=== PATIENT | male | born 1965 | race Caucasian/White ===

== ENCOUNTER 2019-12-16 09:16 | Outpatient (CLI) | payer OTHER, SELFPAY ==
--- NOTE | 2019-12-16 09:21 | EST_ITS ---
Patient Info Name: Royer Shea Age: 54 years : 1965 Gender: Male Ht: 70 in Wt: 180 lbs BSA: 2.02 m2 Exam Date: 12/16/2019 10:04 AM Exam Location: [facility] Stress Patient Status: Outpatient Admit Date: 12/16/2019 Staff Ordering Physician: Marcelo Taylor MD Attending Provider: Marcelo Taylor MD Exercise Technologist: Imelda Arrington RDCS Exercise Physician: Alan Finley DO Exam Type: CA stress test treadmill Study Info Indications R07.89 - Other chest pain A treadmill exercise stress test was performed. Summary 1. 1. Negative Ramsey exercise stress test for ischemic ST changes by ECG criteria. 2. 2. Good functional capacity, achieving 12 METs of workload. 3. 3. Appropriate HR response to exercise. 4. 4. Appropriate HR recovery at 1 minute post exercise. 5. 5. No imaging with stress testing. 6. 6. Patient informed of the above results. Protocol: [place] Stress ECG Details Stage: REST Duration (min): 0 min : 41 sec Speed (mph): 0.0 Grade (%): 0 HR (bpm): 75 SBP (mmHg): 133 DBP (mmHg): 96 METS: --- Stage: REST Duration (min): 19 min : 29 sec Speed (mph): 0.0 Grade (%): 0 HR (bpm): 86 SBP (mmHg): 133 DBP (mmHg): 96 METS: --- Stage: STAGE 1 Duration (min): 1 min : 0 sec Speed (mph): 1.7 Grade (%): 10 HR (bpm): 97 SBP (mmHg): 133 DBP (mmHg): 96 METS: --- Stage: STAGE 1 Duration (min): 2 min : 0 sec Speed (mph): 1.7 Grade (%): 10 HR (bpm): 102 SBP (mmHg): 133 DBP (mmHg): 96 METS: --- Stage: STAGE 1 Duration (min): 3 min : 0 sec Speed (mph): 1.7 Grade (%): 10 HR (bpm): 104 SBP (mmHg): 156 DBP (mmHg): 99 METS: --- Stage: STAGE 2 Duration (min): 1 min : 0 sec Speed (mph): 2.5 Grade (%): 12 HR (bpm): 110 SBP (mmHg): 156 DBP (mmHg): 99 METS: --- Stage: STAGE 2 Duration (min): 2 min : 0 sec Speed (mph): 2.5 Grade (%): 12 HR (bpm): 116 SBP (mmHg): 161 DBP (mmHg): 98 METS: --- Stage: STAGE 2 Duration (min): 3 min : 0 sec Speed (mph): 2.5 Grade (%): 12 HR (bpm): 117 SBP (mmHg): 161 DBP (mmHg): 98 METS: --- Stage: STAGE 3 Duration (min): 1 min : 0 sec Speed (mph): 3.4 Grade (%): 14 HR (bpm): 125 SBP (mmHg): 155 DBP (mmHg): 88 METS: --- Stage: STAGE 3 Duration (min): 2 min : 0 sec Speed (mph): 3.4 Grade (%): 14 HR (bpm): 127 SBP (mmHg): 155 DBP (mmHg): 88 METS: --- Stage: STAGE 3 Duration (min): 3 min : 0 sec Speed (mph): 3.4 Grade (%): 14 HR (bpm): 132 SBP (mmHg): 177 DBP (mmHg): 105 METS: --- Stage: STAGE 4 Duration (min): 1 min : 0 sec Speed (mph): 4.2 Grade (%): 16 HR (bpm): 145 SBP (mmHg): 177 DBP (mmHg): 105 METS: --- Stage: STAGE 4 Duration (min): 1 min : 59 sec Speed (mph): 4.
== END 2019-12-16 09:17 | disposition home or self-care (01) ==
PROVIDERS: PCP Family Medicine; Visit Provider Family Medicine
DX: R07.9 Chest pain, unspecified (principal)
CPT/HCPCS: 93017

== ENCOUNTER 2022-11-04 00:31 | Day surgery (SDC) | payer OTHER, SELFPAY ==
[2022-10-21 13:23] VITALS: BMI 26.6
[2022-11-04 08:20] VITALS: BP 144/96; PULSE 78; RESP 18; TEMP 36.1; O2SAT 97
[2022-11-04] MEDS: LACTATED RINGERS 1,000 ML 150 ML IV CONT (08:22)
--- NOTE | 2022-11-04 08:55 | PM.HPGS ---
History of Present Illness History of Present Illness Consent: Risks, benefits, and alternatives have been discussed and questions answered. Patient agrees to proceed with procedure. Chief complaint: Hx of Polyp Narrative: Royer Shea is a 57 year old male Presents for screening colonoscopy. Patient has a prior history of adenomatous colon polyps. He has had these on several occasions previously removed by Dr. Cheng. Most recent colonoscopy was 3 years ago. Patient reports his current weight appetite and bowel movements are normal. Patient denies abdominal pain. He has had no bleeding. Reports in the past was treated for irritable bowel syndrome. Family history is noncontributory. There is no known family history of colon or rectal disease. Review of Systems Review of Systems: Review of systems noncontributory. [facility] Past Medical History Medical History BMI 26.0-26.9,adult Chest pain CORINA (obstructive sleep apnea) Tobacco abuse Family History Family History Mother Hypertension Family history of elevated blood lipids Family history of diabetes mellitus in first degree relative Family history of heart disease in male family member before age 55 Sibling Family history of malignant neoplasm Esophageal cancer Father Sibling Obesity Acute myocardial infarction Other Diabetes mellitus Social History Social History Smoking packs per day: 1 Smoking cigarettes per day: 20.0 Years smoked: 20 Smoking pack-years: 20.00 Smoking status: Current every day smoker Tobacco type: cigarettes Second hand tobacco smoke exposure: No Alcohol intake: current Substance use: never Substance use type: does not use Living arrangements: with family Occupation/Education: occupation 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[employer] Gender identity (if verbalized by the patient): Male Meds Home Medications and Allergies Home Medications Medication Instructions Recorded Confirmed Type gentamicin 0.3 % (3 mg/gram) eye 1 applic EACH EYE BID #3.5 grams 11/10/20 11/04/22 Rx ointment ketoconazole 2 % topical cream 1 applic topical TID #30 grams 04/02/21 11/04/22 Rx mupirocin 2 % topical ointment 1 applic topical TID #15 grams 04/02/21 11/04/22 Rx triamcinolone acetonide 0.5 % 1 applic topical TID #15 grams 04/02/21 11/04/22 Rx topical cream hydrochlorothiazide 12.5 mg tablet 12.5 mg PO DAILY #90 tabs 04/11/21 11/04/22 Rx amlodipine 5 mg tablet 5 mg PO DAILY #30 tabs 07/24/22 11/04/22 Rx zolpidem 10 mg tablet (Ambien) 10 mg PO HS PRN Sleep #90 tabs 08/22/22 11/04/22 Rx gabapentin 300 mg capsule 600 mg PO TID #180 caps 08/23/22 11/04/22 Rx diclofenac sodium 75 mg 75 mg PO BID PRN pain #60 tabs 09/21/22 11/04/22 Rx tablet,delayed release tapentadol 100 mg tablet,extended 100 mg PO BID #60 tabs 10/21/22 11/04/22 Rx release,12 hr (Nucynta ER) rosuvastatin 20 mg tablet 20 mg PO DAILY #90 tabs 10/22/22 11/04/22 Rx tizanidine 4 mg capsule See Rx Instructions .Route 10/22/22 11/04/22 Rx .COMPLEX #120 caps Allergies Allergy/AdvReac Type Severity Reaction Status Date / Time No Known Allergies Allergy Unknown Unknown Verified 11/04/22 08:17 Vital Signs Vital Signs - 24 hr 11/04/22 08:20 Temperature 97 F L Pulse Rate 78 Respiratory Rate 18 Blood Pressure 144/96 H Pulse Oximetry 97 Oxygen Delivery Room Air Exam Narrative: Physical exam reveals patient to be alert. Vital signs stable. HEENT exam is unremarkable. Patient is anicteric. Lungs are clear to auscultation and percussion. Heart is without murmur or extra sounds. Abdomen bowel sounds are present soft nontender with no organomegaly. Digital external rectal exam is normal. As
--- NOTE | 2022-11-04 09:06 | WPDANESEPPF ---
Anes - Initial Pre Proc Eval Procedure: Operation Date: 11/04/22 09:30 Proposed Procedures p Screening Colonoscopy - Chris Phelps MD Date/Time: 11/04/22 09:06 Surgeon: Chris Phelps MD Pre Op Diagnosis: Hx of Polyp Patient Data Age: 57 Gender: M Height: 1.78 m Weight: 83.4 kg Last Vital Signs Temp 97 F L 11/04/22 08:20 Pulse 78 11/04/22 08:20 Resp 18 11/04/22 08:20 BP 144/96 H 11/04/22 08:20 Pulse Ox 97 11/04/22 08:20 O2 Del Method Room Air 11/04/22 08:20 Allergies Allergy/AdvReac Type Severity Reaction Status Date / Time No Known Allergies Allergy Unknown Unknown Verified 11/04/22 08:17 Home Medications Medication Instructions Recorded Confirmed Type gentamicin 0.3 % (3 mg/gram) eye 1 applic EACH EYE BID #3.5 grams 11/10/20 11/04/22 Rx ointment ketoconazole 2 % topical cream 1 applic topical TID #30 grams 04/02/21 11/04/22 Rx mupirocin 2 % topical ointment 1 applic topical TID #15 grams 04/02/21 11/04/22 Rx triamcinolone acetonide 0.5 % 1 applic topical TID #15 grams 04/02/21 11/04/22 Rx topical cream hydrochlorothiazide 12.5 mg tablet 12.5 mg PO DAILY #90 tabs 04/11/21 11/04/22 Rx amlodipine 5 mg tablet 5 mg PO DAILY #30 tabs 07/24/22 11/04/22 Rx zolpidem 10 mg tablet (Ambien) 10 mg PO HS PRN Sleep #90 tabs 08/22/22 11/04/22 Rx gabapentin 300 mg capsule 600 mg PO TID #180 caps 08/23/22 11/04/22 Rx diclofenac sodium 75 mg 75 mg PO BID PRN pain #60 tabs 09/21/22 11/04/22 Rx tablet,delayed release tapentadol 100 mg tablet,extended 100 mg PO BID #60 tabs 10/21/22 11/04/22 Rx release,12 hr (Nucynta ER) rosuvastatin 20 mg tablet 20 mg PO DAILY #90 tabs 10/22/22 11/04/22 Rx tizanidine 4 mg capsule See Rx Instructions .Route 10/22/22 11/04/22 Rx .COMPLEX #120 caps Patient hx anesthesia problems: none Family hx anesthesia problems: none Results Review: All pre-operative results and documents have been reviewed as part of the pre-operative evaluation. [facility] Past Medical History Medical History BMI 26.0-26.9,adult Chest pain CORINA (obstructive sleep apnea) Tobacco abuse Family History Family History Mother Hypertension Family history of elevated blood lipids Family history of diabetes mellitus in first degree relative Family history of heart disease in male family member before age 55 Sibling Family history of malignant neoplasm Esophageal cancer Father Sibling Obesity Acute myocardial infarction Other Diabetes mellitus Social History Social History Smoking packs per day: 1 Smoking cigarettes per day: 20.0 Years smoked: 20 Smoking pack-years: 20.00 Smoking status: Current every day smoker Tobacco type: cigarettes Second hand tobacco smoke exposure: No Alcohol intake: current Substance use: never Substance use type: does not use Living arrangements: with family Occupation/Education: occupation 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 Informed Consent: The patient's anesthetic plan and its attendant risks and benefits were discussed with the patient/family/POA. Questions were solicited and answers provided to the satisfaction of the pat
[2022-11-04] MEDS: SIMETHICONE ORAL SUSPENSION 20 MG/0.3 ML 30 ML BOTTLE 0.6 ML IRRIGATION (09:49)
[2022-11-04 09:57] VITALS: BP 138/93; PULSE 78; RESP 20; O2SAT 98
[2022-11-04 10:07] VITALS: BP 127/96; PULSE 73; RESP 20; O2SAT 97
[2022-11-04 10:17] VITALS: BP 142/100; PULSE 74; RESP 20; O2SAT 96
== END 2022-11-04 10:26 | disposition home or self-care (01) ==
PROVIDERS: PCP Family Medicine; Visit Provider Internal Medicine Gastroenterology
PROC: 0DJD8ZZ Inspection of Lower Intestinal Tract, Via Natural or Artificial Opening Endoscopic (ICD-10-PCS; CPT 45378; principal; 2022-11-04 09:30)
DX: Z12.11 Encounter for screening for malignant neoplasm of colon (principal); K64.8 Other hemorrhoids; K57.30 Diverticulosis of large intestine without perforation or abscess without bleeding; Z86.010 Personal history of colon polyps; G47.33 Obstructive sleep apnea (adult) (pediatric); F17.210 Nicotine dependence, cigarettes, uncomplicated
CPT/HCPCS: 45378; J2704; J7120

== ENCOUNTER 2023-05-30 13:25 | Outpatient (CLI) | payer OTHER, SELFPAY ==
--- NOTE | 2023-05-30 14:07 | ECG_ITS ---
Measurements Intervals [place] Rate: 78 P: 60 UT: 166 QRS: 53 QRSD: 108 T: 55 QT: 385 QTc: 441 Interpretive Statements BASELINE ARTIFACT/REDUCED ECG QUALITY SINUS RHYTHM INDETERMINATE AXIS POOR R-WAVE PROGRESSION BORDERLINE ECG NO PREVIOUS ECG AVAILABLE FOR COMPARISON Electronically Signed On 05-30-2023 16:11:13 CDT by Jessee Arias M.D.
[2023-05-30 15:13] LABS: Anion Gap 8 mmol/L (8-16); Blood Urea Nitrogen 17 mg/dL (9-20); Calcium 9.3 mg/dL (8.4-10.2); Carbon Dioxide 27 mmol/L (22-30); Chloride 105 mmol/L (98-107); Estimated Glomerular Filt Rate > 60; Glucose 126 mg/dL (65-110); Potassium 3.7 mmol/L (3.4-5.0); Sodium 140 mmol/L (137-145)
== END 2023-05-30 13:26 | disposition home or self-care (01) ==
PROVIDERS: Anesthesiology; PCP Family Medicine; Visit Provider Urology
DX: I10 Essential (primary) hypertension (principal); Z01.818 Encounter for other preprocedural examination
CPT/HCPCS: 36415; 80048; 93005

== ENCOUNTER 2023-06-05 01:09 | Day surgery (SDC) | payer OTHER, SELFPAY ==
--- NOTE | 2023-05-26 15:35 | PC.NURSE ---
Report to the Outpatient Waiting Room, entrance under the green pavilion located off [facility], at time _0915 on date __06/05/23 . Planned Procedure Time: _1115 . Time changes happen often and if your time is changed the preop area will call you the afternoon before. - You and your visitor will be asked to self-screen and do not enter if you have any COVID symptoms. - A mask is optional within the hospital at this time. Patients may have clear liquids (water, carbonated beverages, clear teas, apple juice) until 3 hours prior to surgery with a maximum of 20 ounces. - No food from midnight until time of surgery - Infants may have breast milk until 4 hours before surgery, formula 6 hours prior to surgery. - Children will be allowed to drink immediately following surgery. If applicable, please bring a bottle or sippy cup to assist with drinking. Juice, water, soda, and popsicles are readily available. For infants on formula, please bring formula the day of surgery. Pacifiers are allowed. Take the following medications with a SIP of water the morning of surgery: __AMLODIPINE,GABAPENTIN,TIZANIDINE DO NOT STOP ANY OF YOUR OTHER PRESCRIPTION MEDICATIONS PRIOR TO SURGERY ?EXCEPT THE FOLLOWING Medications to discontinue per physician DICLOFENAC PER DR LEONE Date to take last dose Please no make-up, nail mauritian, hairspray, perfume, deodorant, or body powder the day of surgery. No jewelry (including any body piercings) or valuables the day of surgery, leave them at home. Please take a shower or bath the night before, or the morning of, surgery with an antibacterial soap. Wear comfortable, loose fitting clothing. Children are encouraged to wear pajamas. - Jewelry must be removed prior to entering the operating room. Rings and piercings that are not removed may be cut off. - The hospital will not accept responsibility for valuables. - Please leave all valuables, including medications, at home the day of surgery. If you are going home after surgery, a licensed concrete mixer truck driver must drive you home. - NO public transportation without another adult if you receive anesthesia. - We recommend that an adult stay with you for 24 hours following discharge. - We also recommend that you do not drive, make important decision, drink alcoholic beverages, or take any drugs that were not prescribed by your health care provider for at least 24 hours after your discharge time. For Pediatric surgeries, we recommend two adults accompany the child home. Follow any additional instructions given to you from your surgeon. If you or anyone in your household have experienced Covid symptoms in the past week, please notify your surgeon or the nurse liaison at the phone number below for possible testing. Telephone instructions given to ___PATIENT and asked if any additional questions and then verbalized understanding. Patient advised to call surgeon office or pre surgery nurse liaison [phone] if any additional questions.
[2023-05-26 15:42] VITALS: BMI 26.5
[2023-06-05] VITALS (9 sets, daily range): BP systolic 96–150; BP diastolic 70–101; PULSE 67–86; RESP 12–20; TEMP 36.3–36.4; O2SAT 95–100
--- NOTE | 2023-06-05 06:17 | WPDHPUPDATE1 ---
History and Physical Update Update Date/Time: 06/05/23 06:17 History and Physical has been reviewed, including an updated exam of the patient. There are NO changes in the patient's condition. Risks, benefits, and alternatives have been discussed and questions answered. Patient agrees to proceed with procedure.
--- NOTE | 2023-06-05 09:16 | WPDANESEPPF ---
Anes - Initial Pre Proc Eval Procedure: Operation Date: 06/05/23 10:15 Proposed Procedures p Excision of Multiple Scrotal Wall Cysts - Edison Agarwal MD Date/Time: 06/05/23 09:16 Surgeon: Edison Agarwal MD Pre Op Diagnosis: cyst of scrotum Patient Data Age: 58 Gender: M Height: 1.78 m Weight: 83.95 kg Allergies Allergy/AdvReac Type Severity Reaction Status Date / Time No Known Allergies Allergy Unknown Unknown Verified 06/05/23 09:04 Home Medications Medication Instructions Recorded Confirmed Type hydrochlorothiazide 12.5 mg tablet 12.5 mg PO DAILY #90 tabs 04/11/21 06/05/23 Rx zolpidem 10 mg tablet (Ambien) 10 mg PO HS PRN Sleep #90 tabs 08/22/22 06/05/23 Rx amlodipine 5 mg tablet 5 mg PO DAILY #30 tabs 02/14/23 06/05/23 Rx triamcinolone acetonide 0.5 % 1 applic topical TID #15 grams 03/14/23 05/26/23 Rx topical cream diclofenac sodium 75 mg 75 mg PO BID PRN pain #60 tabs 04/12/23 05/26/23 Rx tablet,delayed release gabapentin 300 mg capsule 600 mg PO TID #180 caps 04/12/23 06/05/23 Rx rosuvastatin 20 mg tablet 20 mg PO DAILY #90 tabs 04/12/23 06/05/23 Rx tizanidine 4 mg capsule See Rx Instructions .Route 05/12/23 06/05/23 Rx .COMPLEX #120 caps tapentadol 100 mg tablet,extended 100 mg PO BID #60 tabs 05/20/23 06/05/23 Rx release,12 hr (Nucynta ER) Patient hx anesthesia problems: none Family hx anesthesia problems: none Results Review: All pre-operative results and documents have been reviewed as part of the pre-operative evaluation. [facility] Past Medical History Medical History BMI 26.0-26.9,adult Chest pain CORINA (obstructive sleep apnea) Tobacco abuse Family History Family History Mother Hypertension Family history of elevated blood lipids Family history of diabetes mellitus in first degree relative Family history of heart disease in male family member before age 55 Sibling Family history of malignant neoplasm Esophageal cancer Father Sibling Obesity Acute myocardial infarction Other Diabetes mellitus Social History Social History Smoking packs per day: 1 Smoking cigarettes per day: 20.0 Years smoked: 20 Smoking pack-years: 20.00 Smoking status: Current every day smoker Tobacco type: cigarettes Second hand tobacco smoke exposure: No Alcohol intake: current Drinks per week: 4 Substance use: never Substance use type: does not use Living arrangements: with family Occupation/Education: occupation 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 Informed Consent: The patient's anesthetic plan and its attendant risks and benefits were discussed with the patient/family/POA. Questions were solicited and answers provided to the satisfaction of the patient/family/POA.
[2023-06-05] MEDS: LACTATED RINGERS 1,000 ML 30 ML IV CONT (09:20)
[2023-06-05] MEDS: ceFAZolin 2 GM/D5W 50 ML 2 GM/50 ML BAG IVPB (09:55)
[2023-06-05] MEDS: LIDOCAINE HCL 1% LOCAL INJ 20 ML VIAL INFILTRATE (10:09)
[2023-06-05] MEDS: NEOMYCIN/POLYMYXIN/BACITRACIN OINTMENT 15 GM TUBE 1 APPLIC TOPICAL (10:27)
--- NOTE | 2023-06-05 10:32 | W.PM.PROC2 ---
Procedure Note - Detailed Date of Procedure 06/05/23 Pre-op Diagnosis Scrotal sebaceous cysts Post-op Diagnosis Same Procedure Performed Excision of multiple small sebaceous cysts Surgeon Edison Agarwal MD Anesthesia General Description of Procedure patient brought the operative suite was prepped draped in routine sterile fashion while in the supine position after the uneventful induction of a general anesthetic. I had asked the patient to previously marked the sites of small sebaceous cyst on his scrotum that he was able to identify. We had reviewed those sites prior to going to the operating room. There were 2 contiguous, approximately 1/2 cm cyst in the anterior scrotal wall midline. These are resected EN bloc by incising the skin and used electrocautery to dissect the subcutaneous tissue. The site is closed in 2 layers with 4-0 chromic in the dartos muscle followed by running 4-0 chromic in the skin. There are 2 small cyst in her near each other in the left lateral posterior scrotal area. These are excised and the skin is closed with interrupted mattress suture of 4-0 chromic. There was a 4 site that is excised at the right penoscrotal junction it is closed with a similar mattress suture. Blood loss was less than 5 cc. Patient tolerated the procedure well was taken recovery good condition. Drains No Packing No Pathology Yes Complications No immediate complications Condition Stable
[2023-06-05] MEDS: oxyCODONE HCL (*CRX) 5 MG TAB IR PO (11:48)
== END 2023-06-05 12:25 | disposition home or self-care (01) ==
PROVIDERS: PCP Family Medicine; Visit Provider Urology
PROC: (CPT 54060; principal; 2023-06-05 10:15)
DX: L72.0 Epidermal cyst (principal); K21.9 Gastro-esophageal reflux disease without esophagitis; E78.00 Pure hypercholesterolemia, unspecified; G47.33 Obstructive sleep apnea (adult) (pediatric); F17.210 Nicotine dependence, cigarettes, uncomplicated
CPT/HCPCS: 11422; 88305; A9270; J0690; J1100; J2250; J2405; J2704; J3010; J7120

== ENCOUNTER → 2023-06-27 12:57 | Outpatient (CLI) | payer OTHER, SELFPAY ==
--- NOTE | ~2023-06-27 | US_ITS ---
US scrotum doppler INDICATION: Scrotal hematoma. Surgery. TECHNIQUE: Testicular sonogram utilizing grayscale and color Doppler FINDINGS: There is bilateral testicular microlithiasis. No discrete solid testicular mass. There are small left testicular cyst measuring up to 4 mm. No focal lesions are seen. Prominent left rete teste s. The right testes measures 5 x 2.9 x 3.6 cm centimeters, and the left testis measures 5.7 x 2.6 x 2 .5 cm. cm. There is normal vascular flow to both testes. The right and left epididymides appear normal. There is a small right hydrocele. No varicocele. IMPRESSION: 1. Small right hydrocele. 2: Testicular microlithiasis. Reviewed, dictated and finalized at location B.
== END ==
PROVIDERS: PCP Nurse Practitioner Adult Health; Visit Provider Nurse Practitioner Adult Health
DX: S30.22XA Contusion of scrotum and testes, initial encounter (principal); N43.3 Hydrocele, unspecified; N50.9 Disorder of male genital organs, unspecified
CPT/HCPCS: 76870; 93976

== ENCOUNTER 2024-11-27 12:53 | Emergency (ER) | payer OTHER, SELFPAY ==
--- OUTSIDE RECORDS SUMMARY | 2024-11-27 12:58 | XMS_ITS | Patient Health Summary ---
Author Organization [facility] Address [address] [place] [address] Care Team Providers Care It Trainer Name Role Phone Marcelo Taylor MD Primary Care Provider [phone] Note from [facility],non-owned Affiliates and Associated Physician Practices is amultiple site organization consisting of ambulatory clinics and hospital sitesin [place], [place], [place] and [place]. This disclosure is being madepursuant to the Care Everywhere program and may not contain all informatio navailable regarding this patient. Last updated 18.[facility] Allergies No known active allergies Medications * Be aware that medications may not be up to date on this document. Alwaysverify current medications with the patient. * gabapentin (Neurontin) 300 MG capsule(Started 05/29/2022) Take 600 mg by mouth 2 times daily * diclofenac sodium EC (Voltaren) 75 MG tablet(Started 05/25/2022) Take 75 mg by mouth 2 times daily as needed For pain. 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 Dermatitis 03/14/2014 Disorder of lip 03/14/2014 Follicular cyst of skin and subcutaneous tissue 03/14/2014 Social History Tobacco Use Types Packs/Day Years Used Date Smoking Tobacco: Former Cigarettes Q uit: 10/13/2010 Smokeless Tobacco: Never Alcohol Use Standard Drinks/Week Comments Yes 2.5 (1 standard drink = 0.6 oz p ure alcohol) Sex and Gender Information Value Date Recorded Sex Assigned at Not on file Gender Identity Not on file Sexual Orientation Not on file Last Filed Vital Signs Vital Sign Reading Time Taken Comments Blood Pressure 162/94 06/20/2022 2:30 PM CDT Pulse 81 06/20/2022 2:30 PM CDT Temperature 36.1 C (97 F) 05/19/2015 11:00 AM CDT Respiratory Rate 15 05/19/2015 10:50 AM CDT Oxygen Saturation 95% 05/19/2015 12:15 PM CDT Inhaled Oxygen Concentration - - Weight 83.5 kg (184 lb) 06/20/2022 2:30 PM CDT Height 177.8 cm (5' 10 ) 06/20/2022 2:30 PM CDT Body Mass Index 26.4 06/20/2022 2:30 PM CDT Procedures * DERMATOPATHOLOGY(Performed 12/05/2023) Performed for Neoplasm of uncertain behavior of skin * MO EAR MICROSCOPY EXAMINATION(Performed 06/20/2022) Performed for Hearing loss, sensorineural, asymmetrical * AUDIOLOGY/TYMPANOMETRY ORDER(Performed 06/20/2022) * DERMATOPATHOLOGY(Performed 03/13/2020) * FL DAREN SURGERY(Performed 05/19/2015) * TYPE + SCREEN PANEL(Performed 05/19/2015) * XR CHEST 2VW(Performed 05/09/2015) * COMPREHENSIVE METABOLIC PANEL(Performed 05/09/2015) * CBC W AUTO DIFFERENTIAL(Performed 05/09/2015) * CBC W AUTO DIFFERENTIAL(Performed 05/09/2015) * EKG 12-LEAD(Performed 05/09/2015) * DERMATOPATHOLOGY(Performed 07/07/2014) * CULTURE AEROBIC(Performed 06/04/2014) Results * DERMATOPATHOLOGY (12/05/2023 3:33 AM [facility]) Only the most recent of3 resultswithin the time period is included. Case Report Dermatopathology Report Case: [id number] Authorizing Provider: Aj Watters MD Collected: 12/05/2023 03:33 AM Ordering Location: [facility] DermPath Lab Received: 12/08/2023 01:27 PM Pathologist: Kevin Locke MD Specimens: A) - Skin, right forehead B) - Skin, left lateral eyebrow 11:47 AM [facility] DERMATOPATHOLOGY LABORATORY Final Diagnosis Specimen A. SKIN, right forehead: SEBACEOUS HYPERPLASIA (L73.8) CHRONIC PERIFOLLICULITIS (L73.8) Specimen B. SKIN, left lateral eyebrow: BENIGN VERRUCOUS KERATOSIS (L82.1) 11:47 AM [facility] DERMATOPATHOLOGY LABORATORY Clinical History A: Sebaceous hyperplasia vs basal cell carcinoma B: Irritated seborrheic keratosis vs actinic keratosis 11:47 AM [facility] DERMATOPATHOLOGY LABORATORY Gross Description Specimen A: Received is one formalin filled container labeled with the patient's name and designated right forehead. The specimen consists of a shave biopsy measuring 10x8x1 mm. Jar 0. Specimen B: Received is one formalin filled container labeled with the patient's name and designated left lateral eyebrow. The specimen consists of a shave biopsy measuring 5x4x2 mm. Jar 0. 11:47 AM [facility] DERMATOPATHOLOGY LABORATORY Microscopic Description Specimen A. SKIN, right forehead: There are prominent sebaceous gland lobules surrounding a dilated hair follicle. Sections show a perifollicular lymphohistiocytic infiltrate. Specimen B. SKIN, left lateral eyebrow: Sections show hyperkeratosis, papillomatosis, hypergranulosis, and acanthosis. These histological findings can be seen in a verruca vulgaris or a seborrheic keratosis. 11:47 AM [facility] DERMATOPATHOLOGY LABORATORY Disclaimer An external and internal positive and negative controls are appropriate for the histochemical, immunohistochemical and immunofluorescence stain(s) in this case (if any), except where stated explicitly. The performance characteristics of the stain(s) cited in this report were developed and its performance characteristic determined by the Dermatopathology Laboratory at [facility], directed by Dr. Yuri Locke. These tests need not be, and therefore are not, approved by the [place] Food and Drug Administration. The tests are used for clinical purposes. Billing Codes Specimen Charges Stain Charges 01027 16389 1 1 4 11:47 AM [facility] DERMATOP[facility]Y LABORATORY Embedded Images 4 11:47 AM [facility]ERMAT[facility] Pathology/Cytology TISSUE SPECIMEN FROM SKIN / Unknown 12/05/2023 3:33 AM [facility] 12/08/2023 1:27 PM [facility] Miscellaneous samples (specimen) TISSUE SPECIMEN FROM SKIN / Unknown 12/05/2023 3:33 AM [facility] 12/08/2023 1:27 PM [facility] Aj Watters MD LAB - PATHOLOGY/CYTO LOGY ORDERABLES DERMATOPATHOLOGY LABORATORY [facility] - Department of Dermatology [address], [address] [phone] * MO EAR MICROSCOPY EXAMINATION (06/20/2022 3:27 PM CDT) Narrative Rob Salvador MD - 06/20/2022 3:27 PM CDT Rob Salvador MD 06/20/2022 3:28 PM Procedure: Microscopic exam of the ear(s) Findings: See main note. Procedure in detail: The binocular operating microscope and and ear speculum were used to exam the ear(s). The patient tolerated the procedure well and there was no bleeding. Rob Salvador MD Rob Salvador MD PROCEDURE/MINOR DESMOND GICAL ORDERABLES * AUDIOLOGY/TYMPANOMETRY ORDER (06/20/2022 1:57 PM CDT) Narrative Praveen Colon, PhD - 06/20/2022 2:28 PM CDT Royer Shea is a 57 year old male was seen for an assessment of their hearing. The patient reports difficulty hearing in the left. There is a report of dizziness. There is a report of tinnitus in the left ear. There is a report of otalgia. There is a report of noise exposure in the and recreational firearms. There is not a history of hearing loss in the family. There is not a history of previous ear surgery. There is a history of migraine headaches since childhood. Results: Puretone air/bone conduction testing revealed a normal hearing in the right ear and a normal sloping to mild sensorineural hearing loss in the left ear. Speech Core Shaper Top Thresholds is in good agreement with pure tone average(see speech audiometry for details). Findings were reviewed and discussed with Royer Shea following the hearing evaluation. Plan: 1. The risks and benefits of my recommendations, as well as other treatment options were discussed today. 2. I recommend that the patient follow up with their facility, ENT or PCP PRN. 3. Annual hearing test. Praveen Colon, Ph.D., EMMA., [facility] Trash Hauler Director, Division of Audiology Department of Otolaryngology- Head & Neck Surgery [facility] [employer] [facility] Praveen Colon PhD AUDIOLOGY SERVICES O RDERABLES * FL DAERN SURGERY (05/19/2015 9:46 AM CDT) Anatomical Region Laterality Modality Other Narrative 05/19/2015 9:46 AM CDT Fluoroscopy was used for this exam. Please see the Operative report. Procedure Note Provider, MD Juliette - 01/10/2018 Fluoroscopy was used for this exam. Please see the Operative report. Historical Provider FLUOROSCOPY ORDER ZOHAIB * TYPE + SCREEN PANEL (05/19/2015 7:10 AM CDT) Typem A POS [facility] BLOOD BANK LAB Antibody Screen NEG [facility] Blood specimen (specimen) 05/19/2015 7:10 AM CDT 05/19/2015 7:16 AM CDT Historical Provider LAB - BLOOD BANK ORDERABLES [facility] [address] [place], [place] [address] * XR CHEST 2VW (05/09/2015 4:18 PM CDT) Anatomical Region Laterality Modality Chest Other Impressions 05/11/2015 6:11 PM CDT Impression: No acute pulmonary process. Dictated by Sammy Fox MD (Installer Helper) This report was approved by Smamy Fox on 05/11/2015 5:[address] Damaso Marshall M.D. have personally reviewed and interpreted this examination/study. This report was electronically signed by Damaso GRISSOM M.D. on 05/11/2015 6:11 PM . Narrative 05/11/2015 6:11 PM CDT Exam: XR CHEST PA AND LATERAL Date: 05/09/2015 4:19 PM History: pre op testing Findings: Partially imaged cervical spinal fusion hardware is seen. There is no consolidation, pleural effusion, or pneumothorax. The cardiomediastinal silhouette is normal. The visible bony thorax is intact. Procedure Note Roxana Grissom MD - 01/10/2018 Exam: XR CHEST PA AND LATERAL Date: 05/09/2015 4:19 PM History: pre op testing Findings: Partially imaged cervical spinal fusion hardware is seen. There is no consolidation, pleural effusion, or pneumothorax. Thecardiomediastinal silhouette is normal. The visible bony thorax isintact. IMPRESSION Impression: No acute pulmonary process. Dictated by Sammy Fox MD (Installer Helper) This report was approved by Sammy Fox on 05/11/2015 5:[address] Damaso Marshall M.D. have personally reviewed and interpreted thisexamination/study. This report was electronically signed by Damaso GRISSOM M.D. on05/11/2015 6:11 PM . Historical Provider MD SIERRA Medel ORDERABLES * (ABNORMAL) CBC W AUTO DIFFERENTIAL (05/09/2015 4:09 PM CDT) Only the most recent of2 resultswithin the time period is included. WBC 8.4 3.5 - 10.5 10 3/uL [facility] RBC 5.13 4.30 - 5.70 10 6/uL [facility] Hemoglobin 15.4 13.5 - 17.5 g/dL [facility] Hematocrit 43.5 39.0 - 50.0 % [facility] MCV 84.8 81.0 - 97.0 fL [facility] MCH 30.0 28.0 - 34.0 pg [facility] MCHC 35.4 32.0 - 36.0 g/dL [facility] Platelet Count 277 150 - 400 10 3/uL [facility] RDW-SD 39.9 36.0 - 50.0 fL [facility] RDW-CV 12.9 11.2 - 14.8 % [facility] MPV 10.5 9.3 - 12.8 fL [facility] nRBC Absolute 0.00 0 10 3/uL [facility] nRBC Auto 0.0 0 /100 WBC [facility] Neutrophils % 55.8 35.0 - 70.0 % [facility] Lymphocytes % 36.0 19.7 - 55.1 % [facility] Monocytes % 5.1 3.0 - 15.0 % [facility] Eosinophils % 2.4 0.0 - 6.0 % [facility] Basophil % 0.7 0.0 - 1.5 % [facility] Neutrophils Absolute 4.7 1.6 - 7.0 10 3/uL [facility] Lymphocyte Absolute 3.0(H) 0.8 - 2.9 10 3/uL [facility] Monocytes Absolute 0.43 0.14 - 0.66 10 3/uL [facility] Eosinophils Absolute 0.20 0.00 - 0.22 10 3/uL [facility] Basophils Absolute 0.06 0.00 - 0.06 10 3/uL [facility] Immature Granulocytes % 0.4 0.0 - 1.0 % [facility] Blood specimen (specimen) BLOOD SPECIMEN / Unknown 05/09/2015 4:09 PM CDT 05/09/2015 5:04 PM CDT Historical Provider LAB - HEMATOLOGY ORDERABLES [facility] [address] [phone] * (ABNORMAL) COMPREHENSIVE METABOLIC PANEL (05/09/2015 4:09 PM CDT) BUN 11 7 - 26 mg/dL [facility] Creatinine 0.9 0.6 - 1.2 mg/dL [facility] Sodium 141 136 - 145 mmol/L [facility] Potassium 4.2 3.5 - 4.5 mmol/L [facility] Chloride 108(H) 98 - 107 mmol/L [facility] CO2 23 22 - 29 mmol/L [facility] Glucose 82 70 - 115 mg/dL [facility] Calcium 9.4 8.4 - 10.2 mg/dL [facility] Protein Total 6.9 6.0 - 8.3 g/dL [facility] Albumin 4.0 3.4 - 5.0 g/dL [facility] Bilirubin Total 0.5 0.2 - 1.2 mg/dL [facility] Alkaline Phosphatase 64 40 - 150 Units/L [facility] ALT 22 0 - 55 Units/L [facility] AST 24 5 - 34 Units/L [facility] Anion Gap 14 8 - 18 [facility] BUN/Creatinine Ratio 12 7 - 23 [facility] Osmolality Calculated 276 270 - 300 mOsm/kg [facility] Albumin/Globulin Ratio 1.4 1.1 - 2.3 [facility] eGFR >60 >60 mL/min/1.7 3 m2 [facility] Blood specimen (specimen) BLOOD SPECIMEN / Unknown 05/09/2015 4:09 PM CDT 05/09/2015 5:04 PM CDT Historical Provider LAB - CHEMISTRY O RDERABLES [address] [phone] * EKG 12-LEAD (05/09/2015 12:00 AM CDT) 05/09/2015 Sanket Mccrary CD ECG ORDERABLES [facility] RADIOLOGY * (ABNORMAL) CULTURE AEROBIC (06/04/2014 11:00 AM CDT) Culture SEE NOTE(A) [facility] ([facility]) Comment: CULTURE, AEROBIC BACTERIA MICRO NUMBER: [id number] TEST STATUS: FINAL SPECIMEN SOURCE: NOT GIVEN SPECIMEN QUALITY: ADEQUATE RESULT: Moderate growth of Staphylococcus aureus COMMENT: Additional organisms of questionable significance were isolated that normally do not warrant identification and susceptibilities. Please contact the laboratory within three days if identification and susceptibilities are clinically indicated. S.aureus INT RAJIV AMOX/CLAVULANATE S <=4/2 AMP/SULBACTAM S <=8/4 CEFAZOLIN S <=4 CIPROFLOXACIN R >2 CLINDAMYCIN R >4 ERYTHROMYCIN R >4 GENTAMICIN S <=1 LEVOFLOXACIN R >4 OXACILLIN S 0.5 1 TETRACYCLINE S <=1 TRIMETHOPRIM/SULFA S <=0.5/9.5 VANCOMYCIN S 2 S=Susceptible I=Intermediate R=Resistant * = Not Tested NR = Not Reported NN = See Therapy Comments THERAPY COMMENTS Note 1: Oxacillin-susceptible staphylococci are susceptible to other penicillinase-stable penicillins (e.g. Methicillin, Nafcillin), beta- lactam/beta-lactamase inhibitor combinations, and cephems with staphylococcal indications, including Cefazolin. NO COLLECTION DATE RECEIVED. WE HAVE USED THE DATE THE SPECIMEN WAS RECEIVED BY THIS LABORATORY THE COLLECTION DATE. IF THIS IS INCORRECT, PLEASE CONTACT CLIENT SERVICES. PHONE NUMBER: [phone] Test Performed at: [employer] [phone] GATITO STEPHENSON MD Skin (tissue) specimen (specimen) 06/04/2014 11:00 AM CDT 05/31/2014 11:26 PM CDT Narrative [facility] ([facility]) - 06/04/2014 11:00 AM CDT Specimen Type->Skin Maribell Mcgowan MD LAB - MICROBIOLOGY ORDERABLES [facility]) Care Teams It Trainer Relationship Specialty Start Date End Date Marcelo Taylor MD [address] [place] [address] PCP - General 01/21/11
--- OUTSIDE RECORDS SUMMARY | 2024-11-27 12:58 | XMS_ITS | Clinical Summary ---
Author Organization [facility] [employer] Address [address] [place] [address] Care Team Providers Care Nurse'S Companion Name Role Phone Marcelo Taylor MD Primary Care Provider Source Comments [facility] [employer],non-owned Affiliates and Associated Physician Practices is amultiple site organization consisting of ambulatory clinics and hospital sitesin [place], [place], [place] and [place]. This disclosure is being madepursuant to the Care Everywhere program and may not contain all information available regarding this patient. Last updated 18.[facility] [employer] Allergies No known active allergies Medications * Be aware that medications may not be up to date on this document. Alwaysverify current medications with the patient. Medication Sig Dispensed Refills Start Date End Date Status gabapentin (Neurontin) 300 MG capsule Take 600 mg by mouth 2 times daily 05/29/2022 Active diclofenac sodium EC (Voltaren) 75 MG tablet Take 75 mg by mouth 2 times daily as needed For pain. 05/25/2022 Active Nucynta ER 100 MG tablet Take 100 mg by mouth 2 times daily 05/23/2022 Active tiZANidine HCl 4 MG Take 4 mg by mouth 2 times daily 05/25/2022 Active zolpidem (Ambien) 10 MG tablet Take 10 mg by mouth nightly as needed for Insomnia Active Active Problems Problem Noted Date Diagnosed Date Other intervertebral disc displacement, lumbar r egion 01/23/2015 Dermatitis 03/14/2014 Disorder of lip 03/14/2014 Follicular cyst of skin and subcutaneous tissue 03/14/2014 Family History Medical History Relation Name Comments Cancer Brother CVA Maternal Grandfather Heart Disease Mother Hypertension Mother Allergy (Severe) Neg Hx Cancer - Breast Neg Hx Cancer - Skin, Melanoma Neg Hx Cancer - Skin, Non Melanoma Neg Hx Eczema Neg Hx Hemophilia Neg Hx Psoriasis Neg Hx Rashes/Skin Problems Neg Hx Relation Name Status Comments Brother Maternal Grandfather Mother Social History Tobacco Use Types Packs/Day Years [...] Mass Index 26.4 06/20/2022 2:30 PM CDT Plan of Treatment Health Maintenance Due Date Last Done Comments COLOGUARD (AGES 45-75) - COL ON CA SCREENING 1967 COLON MONITORING 1967 COLONOSCOPY - COLON CA SCREENING 1967 CT COLONOGRAPHY - COLON CA SCREENING 1967 Colorectal Cancer Screening 1967 FIT - COLON CA SCREENING 1967 FLEX SIG - COLON CA SCREENING 1967 LIPID TESTING 1967 HIV SCREENING 1982 HEPATITIS C SCREENING 05/28/1985 DTAP/TDAP/TD VACCINES (1 - Tdap) 1986 HEPATITIS B VACCINE (1 of 3 - 19+ 3-dose series) 1986 PNEUMOCOCCAL VACCINE 50+ (1 of 1 - PCV) 2017 ZOSTER VACCINE (1 of 2) 2017 SCREENING FOR DIABETES 06/20/2022 05/09/2015 COVID-19 VACCINE ( - 2023-2 5 season) 2024 INFLUENZA VACCINE (#1) 2024 07/13/2013 DEPRESSION SCREENING 10/13/2024 HIB VACCINE Aged Out No longer eligi ble based on patient's age to complete this topic HPV VACCINE Aged Out No longer eligi ble based on patient's age to complete this topic MENINGOCOCCAL (Group B) VACCINE Aged Out No longer eligible based on patient's age to complete this topic MENINGOCOCCAL VACCINE Aged Out No bubba adam eligible based on patient's age to complete this topic PNEUMOCOCCAL VACCINE Aged Out No long er eligible based on patient's age to complete this topic Procedures Procedure Name Priority Date/Time Associated Diagnosis Comments COMPREHENSIVE METABOLIC PANEL Routine 05/09/2015 4:09 PM CDT from Last 3 Months or Most Recently Relevant to Health Maintenance Results * (ABNORMAL) COMPREHENSIVE METABOLIC PANEL (05/09/2015 4:09 PM CDT) BUN 11 7 - 26 mg/dL [facility] Creatinine 0.9 0.6 - 1.2 mg/dL [facility] Sodium 141 136 - 145 mmol/L [facility] Potassium 4.2 3.5 - 4.5 mmol/L [facility] Chloride 108(H) 98 - 107 mmol/L [facility] CO2 23 22 - 29 mmol/L [facility] Glucose 82 70 - 115 mg/dL [facility] Calcium 9.4 8.4 - 10.2 mg/dL [facility] Protein Total 6.9 6.0 - 8.3 g/dL [facility] Albumin 4.0 3.4 - 5.0 g/dL [facility] Bilirubin Total 0.5 0.2 - 1.2 mg/dL [facility] Alkaline Phosphatase 64 40 - 150 Units/L [facility] ALT 22 0 - 55 Units/L [facility] AST 24 5 - 34 Units/L [facility] Anion Gap 14 8 - 18 [facility] BUN/Creatinine Ratio 12 7 - 23 [facility] Osmolality Calculated 276 270 - 300 mOsm/kg [facility] Albumin/Globulin Ratio 1.4 1.1 - 2.3 [facility] eGFR >60 >60 mL/min/1.7 3 m2 [facility] Blood specimen (specimen) BLOOD SPECIMEN / Unknown 05/09/2015 4:09 PM CDT 05/09/2015 5:04 PM CDT Historical Provider LAB - CHEMISTRY O RDERABLES [facility] [address] [phone] from Last 3 Months or Most Recently Relevant to Health Maintenance Care Teams Nurse'S Companion Relationship Specialty Start Date End Date Marcelo Taylor MD [address] [place] [address] PCP - General 01/21/11
--- OUTSIDE RECORDS SUMMARY | 2024-11-27 12:58 | XMS_ITS | Referral Summary ---
Author Organization [facility] [employer] Address [address] [place] [address] Care Team Providers Care Occupational Health Nurse Name Role Phone Marcelo Taylor MD Primary Care Provider [phone] Source Comments [facility] [employer],non-owned Affiliates and Associated Physician Practices is amultiple site organization consisting of ambulatory clinics and hospital sitesin [place], [place], [place] and [place]. This disclosure is being madepursuant to the Care Everywhere program and may not contain all information available regarding this patient. Last updated 18.[facility] [employer] Allergies No known active allergies Medications * [...] 06/20/2022 2:30 PM CDT Plan of Treatment Not on file Procedures Procedure Name Priority Date/Time Associated Diagnosis Comments COMPREHENSIVE METABOLIC PANEL Routine 05/09/2015 4:09 PM CDT from Last 3 Months or Most Recently Relevant to Health Maintenance Results * (ABNORMAL) COMPREHENSIVE METABOLIC PANEL (05/09/2015 4:09 PM CDT) BUN 11 7 - 26 mg/dL [facility] Creatinine 0.9 0.6 - 1.2 mg/dL [facility] Sodium 141 136 - 145 mmol/L [facility] Potassium 4.2 3.5 - 4.5 mmol/L [facility] Chloride 108(H) 98 - 107 mmol/L [facility] CO2 23 22 - 29 mmol/L [facility] Glucose 82 70 - 115 mg/dL [facility] Calcium 9.4 8.4 - 10.2 mg/dL [facility] Protein Total 6.9 6.0 - 8.3 g/dL [facility] Albumin 4.0 3.4 - 5.0 g/dL [facility] Bilirubin Total 0.5 0.2 - 1.2 mg/dL [facility] Alkaline Phosphatase 64 40 - 150 Units/L [facility] ALT 22 0 - 55 Units/L [facility] AST 24 5 - 34 Units/L [facility] Anion Gap 14 8 - 18 [facility] BUN/Creatinine Ratio 12 7 - 23 [facility] Osmolality Calculated 276 270 - 300 mOsm/kg [facility] Albumin/Globulin Ratio 1.4 1.1 - 2.3 [facility] eGFR >60 >60 mL/min/1.7 3 m2 [facility] Blood specimen (specimen) BLOOD SPECIMEN / Unknown 05/09/2015 4:09 PM CDT 05/09/2015 5:04 PM CDT Historical Provider LAB - CHEMISTRY O RDERABLES [facility] [address] [place] [address] from Last 3 Months or Most Recently Relevant to Health Maintenance Care Teams Occupational Health Nurse Relationship Specialty Start Date End Date Marcelo Taylor MD [address] [place] [address] PCP - General 01/21/11
--- OUTSIDE RECORDS SUMMARY | 2024-11-27 12:59 | XMS_ITS | Continuity of Care Document ---
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 It does not include entries that were removed or entered in error. Problem Status Onset Date Problem Type Date of Resolution Comments Source Low Back Pain * (ICD-9-CM 724.2) Active Condition . 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 DoD nonorganic sleep apnea Inactive Condition DoD neuritis cervical Active Condition DoD radiculopathy Inactive Condition DoD periods of not breathing while asleep (sleep apnea) Inactive Condition DoD Snoring Inactive Condition [facility] visit for: services physical long-term Inactive Condition [facility] visit for: preoperative cardiovascular exam Inactive Condition DoD snoring Active Condition [facility] visit for: preoperative exam Active Condition 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 DoD extruded intervertebral disc cervical Inactive Condition DoD essential hypertriglyceridemia Active Condition DoD midback pain Inactive Condition DoD cervicalgia Active Condition 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 Elavil 150mg prescribed but too dry for him. Would like to switch to something else for sleep. Not excessively concerned with sweating any more. Try Trazodone. [facility] dermatology non-infectious nails Inactive Condition dystrop hy of 2 nails likely caused by application of high dose steroids to cuticles 3-4 months ago. These nails will grow out. Meanwhile the patient is cautioned to keep the nails as dry as possible and keep from soaking them to avoid infection of the nail bed. Follow up in 6 months for nail growth. DoD glaucoma open-angle primary Active Condition DoD dyshidrosis Active Condition DoD hyperhidrosis Active Condition WITH P T REPORTING INCREASE IN OVERALL SWEATING, NIGHT SWEATS, NON PURPOSEFUL WEIGHT LOSS, FLUSHING WITH SENSATION OF BEING HOT WOULD CONSIDER SYSTEMIC CAUSE OF SWEATING. WILL DO BASIC LAB EVAL TO INCLUDE THYROID AND REFER BACK TO PCM OR IM FOR FURTHER POS DoD visit for: services physical Inactive Condition DoD hemorrhoids external thrombosed Inactive Condition History of external hemorrhoids x 15 years. Negative c-scope >10 years ago. No family history of colon cancer. Thrombosed hemorrhoid incised and contents expelled. DoD glaucoma open-angle Inactive Condition D oD tendonitis rotator cuff Active Condition DoD joint pain, localized in the shoulder Inactive Condition ac arthrosis and shoulder impingement pt offered injections for possible dx in anticpation of surgery but pt states that he would rather have the pain than have surgerysports cream qhsscap stabilizers DoD tendonitis shoulder Inactive Condition Signficant tenderness on palpation of AC joint with positive Neer's/Le. Previously seen ortho and was told to need surgery. Desires profile for sit-ups -- Profile for 2 months, while being evaluated by Ortho. Will not extend unless recommended by DoD skin: rash [as Sx] Inactive Condition f ungal infection versus eczema flare. Treated with mycolog and atarax (script given, patinet was not enrolled at the time of the appt.). 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 NOTE BVA OS; perhaps due to anisometropia; this is noted previously. 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 DoD upper respiratory infection Inactive Condition DoD Preventive Medicine Established Patient Checkup Adult 18-39 Years Inactive Condition DoD Patient Education Inactive Condition DoD Patient Counseling Medical Management Two To Four Patients Inactive Condition DoD nonallopathic lesions thoracic Inactive Condition DoD joint disorder of head / neck / trunk Inactive Condition DoD nonallopathic lesions sacral Inactive Condition DoD epidermal inclusion cyst Inactive Condition DoD refractive error - myopia Active Condition DoD furuncle Inactive Condition Tac 20; to sarika of .4cc injected into the cyst. due to sever inflamation oral Bactrim DS for 10 days liyah ordered. Pt has tollerated it in the past DoD tendon adhesions rotator cuff Inactive Condition DoD Occupational Therapy Inactive Condition Discharge from OT -- all goals achieved. DoD Removal Of Sutures Inactive Condition Do D sebaceous gland disorder Inactive Condition vs other disorder. Will refer to Derm for further eval/rx. 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 Instructed pt to use warm compresses prn DoD allergic rhinitis Active Condition DoD problem related to lifestyle Inactive Condition DoD backache Inactive Condition PT failed. Will try chiro. Tylenol/motrin prn. DoD Other Physical Therapy Active Condition DoD cervical radiculopathy Inactive Condition DoD other interpersonal problem Inactive Condition DoD visit for: occupational health / fitness exam Inactive Condition DoD nonallopathic lesions upper extremities Inactive Condition DoD strain Inactive Condition Flexeril ordered in [facility]. PGUI down. DoD Medications Combined list of outpatient medications from Department of Defense and Veterans Affairs facilities.Medications provided include 1) outpatient medications from the last 15 months, and 2) patient-reported medications. Medication Details Route Status Patient Instructions Prescription Expires Prescription Number Last Dispense Date Ordering Provider Order Date Order Qty Source AMLODIPINE BESYLATE (amlodipine besylate), 5 MG, TABLET, ORAL, LUPIN PHARMACEU, 1000 ea. BOTTLE Cancele d [id number] : 2023 0 Pharmac y Data Transac tion Service Facilit y AMLODIPINE BESYLATE (amlodipine besylate), 5 MG, TABLET, ORAL, UNICHEM PHARMAC, 1000 ea. BOTTLE Cancele d [id number] : 2023 0 Pharmac y Data Transac tion Service Facilit y AMLODIPINE BESYLATE (amlodipine besylate), 5 MG, TABLET, ORAL, UNICHEM PHARMAC, 1000 ea. BOTTLE Active [id number] 4 2023 90 Pharmac y Data Transac tion Service Facilit y AMLODIPINE BESYLATE (amlodipine besylate), 5 MG, TABLET, ORAL, UNICHEM PHARMAC, 1000 ea. BOTTLE Active [id number] 2023 90 Pharmac y Data Transac tion Service Facilit y DICLOFENAC SODIUM (diclofenac sodium), 75 MG, TABLET DR, ORAL, ADVAGEN PHARMA, 500 ea. BOTTLE Cancele d [id number] : 2023 0 Pharmac y Data Transac tion Service Facilit y DICLOFENAC SODIUM (diclofenac sodium), 75 MG, TABLET DR, ORAL, ADVAGEN PHARMA, 500 ea. BOTTLE Cancele d [id number] : 2023 0 Pharmac y Data Transac tion Service Facilit y DICLOFENAC SODIUM (diclofenac sodium), 75 MG, TABLET DR, ORAL, ADVAGEN PHARMA, 500 ea. BOTTLE Active [id number] 2023 60 Pharmac y Data Transac tion Service Facilit y DICLOFENAC SODIUM (diclofenac sodium), 75 MG, TABLET DR, ORAL, ADVAGEN PHARMA, 500 ea. BOTTLE Cancele d [id number] : 2023 0 Pharmac y Data Transac tion Service Facilit y DICLOFENAC SODIUM (diclofenac sodium), 75 MG, TABLET DR, ORAL, ADVAGEN PHARMA, 500 ea. BOTTLE Active [id number] 2022 60 Pharmac y Data Transac tion Service Facilit y DICLOFENAC SODIUM (DICLOFENAC SODIUM), 75 MG, TABLET DR, ORAL, [place]LS[place] TECH, 500 ea. BOTTLE Active [id number] 2023 60 Pharmac y Data Transac tion Service Facilit y DICLOFENAC SODIUM (DICLOFENAC SODIUM), 75 MG, TABLET DR, ORAL, [place] TECH, 500 ea. BOTTLE Active [id number] 2023 60 Pharmac y Data Transac tion Service Facilit y DICLOFENAC SODIUM (DICLOFENAC SODIUM), 75 MG, TABLET DR, ORAL, [place] TECH, 500 ea. BOTTLE Active [id number] 2023 60 Pharmac y Data Transac tion Service Facilit y DICLOFENAC SODIUM (DICLOFENAC SODIUM), 75MG, TABLET DR, ORAL, [place] TECH, 60 ea. BOTTLE Active [id number] 2023 60 Pharmac y Data Transac tion Service Facilit y DICLOFENAC SODIUM (DICLOFENAC SODIUM), 75MG, TABLET DR, ORAL, [place] TECH, 60 ea. BOTTLE Active [id number] 2023 60 Pharmac y Data Transac tion Service Facilit y GABAPENTIN (GABAPENTIN ), 300 MG, CAPSULE, ORAL, ACTAVIS PHARMA,, 500 ea. BOTTLE Active [id number] 2023 180 Pharmac y Data Transac tion Service Facilit y GABAPENTIN (GABAPENTIN ), 300 MG, CAPSULE, ORAL, ACTAVIS PHARMA,, 500 ea. BOTTLE Active [id number] 2023 180 Pharmac y Data Transac tion Service Facilit y GABAPENTIN (GABAPENTIN ), 300 MG, CAPSULE, ORAL, ACTAVIS PHARMA,, 500 ea. BOTTLE Active [id number] 2023 180 Pharmac y Data Transac tion Service Facilit y GABAPENTIN (GABAPENTIN ), 300 MG, CAPSULE, ORAL, ACTAVIS PHARMA,, 500 ea. BOTTLE Active [id number] 2023 180 Pharmac y Data Transac tion Service Facilit y GABAPENTIN (GABAPENTIN ), 300 MG, CAPSULE, ORAL, ACTAVIS PHARMA,, 500 ea. BOTTLE Active [id number] 2023 180 Pharmac y Data Transac tion Service Facilit y NUCYNTA ER (tapentadol HCl), 100 MG, TAB ER 12H, ORAL, COLLEGIUM PHARM, 60 ea. BOTTLE Active [id number] 2023 60 Pharmac y Data Transac tion Service Facilit y NUCYNTA ER (tapentadol HCl), 100 MG, TAB ER 12H, ORAL, COLLEGIUM PHARM, 60 ea. BOTTLE Active [id number] 2023 60 Pharmac y Data Transac tion Service Facilit y NUCYNTA ER (tapentadol HCl), 100 MG, TAB ER 12H, ORAL, COLLEGIUM PHARM, 60 ea. BOTTLE Active [id number] 2023 60 Pharmac y Data Transac tion Service Facilit y NUCYNTA ER (tapentadol HCl), 100 MG, TAB ER 12H, ORAL, COLLEGIUM PHARM, 60 ea. BOTTLE Active [id number] 2023 60 Pharmac y Data Transac tion Service Facilit y NUCYNTA ER (tapentadol HCl), 100 MG, TAB ER 12H, ORAL, COLLEGIUM PHARM, 60 ea. BOTTLE Active [id number] 2023 60 Pharmac y Data Transac tion Service Facilit y NUCYNTA ER (tapentadol HCl), 100 MG, TAB ER 12H, ORAL, COLLEGIUM PHARM, 60 ea. BOTTLE Active [id number] 2023 60 Pharmac y Data Transac tion Service Facilit y NUCYNTA ER (tapentadol HCl), 100 MG, TAB ER 12H, ORAL, COLLEGIUM PHARM, 60 ea. BOTTLE Active [id number] 2023 60 Pharmac y Data Transac tion Service Facilit y ROSUVASTATI N CALCIUM (rosuvastat in calcium), 20 MG, TABLET, ORAL, CAMBER PHARMACE, 90 ea. BOTTLE Active [id number] 2023 90 Pharmac y Data Transac tion Service Facilit y ROSUVASTATI N CALCIUM (rosuvastat in calcium), 20 MG, TABLET, ORAL, CAMBER PHARMACE, 90 ea. BOTTLE Active [id number] 2022 90 Pharmac y Data Transac tion Service Facilit y ROSUVASTATI N CALCIUM (rosuvastat in calcium), 20 MG, TABLET, ORAL, CAMBER PHARMACE, 90 ea. BOTTLE Active [id number] 2023 90 Pharmac y Data Transac tion Service Facilit y TIZANIDINE HCL (tizanidine HCl), 4 MG, CAPSULE, ORAL, AUROBINDO PHARM, 150 ea. BOTTLE Active [id number] 2023 120 Pharmac y Data Transac tion Service Facilit y TIZANIDINE HCL (tizanidine HCl), 4 MG, CAPSULE, ORAL, AUROBINDO PHARM, 150 ea. BOTTLE Active [id number] 2023 120 Pharmac y Data Transac tion Service Facilit y TIZANIDINE HCL (tizanidine HCl), 4 MG, CAPSULE, ORAL, AUROBINDO PHARM, 150 ea. BOTTLE Active [id number] 2023 120 Pharmac y Data Transac tion Service Facilit y TIZANIDINE HCL (tizanidine HCl), 4 MG, CAPSULE, ORAL, AUROBINDO PHARM, 150 ea. BOTTLE Cancele d [id number] : 2023 0 Pharmac y Data Transac tion Service Facilit y TIZANIDINE HCL (tizanidine HCl), 4 MG, CAPSULE, ORAL, AUROBINDO PHARM, 150 ea. BOTTLE Cancele d [id number] : 2023 0 Pharmac y Data Transac tion Service Facilit y TIZANIDINE HCL (tizanidine HCl), 4 MG, CAPSULE, ORAL, AUROBINDO PHARM, 150 ea. BOTTLE Active [id number] 2023 120 Pharmac y Data Transac tion Service Facilit y TIZANIDINE HCL (tizanidine HCl), 4 MG, CAPSULE, ORAL, AUROBINDO PHARM, 150 ea. BOTTLE Cancele d [id number] : 2022 0 Pharmac y Data Transac tion Service Facilit y TIZANIDINE HCL (tizanidine HCl), 4 MG, CAPSULE, ORAL, AUROBINDO PHARM, 150 ea. BOTTLE Active [id number] 2022 120 Pharmac y Data Transac tion Service Facilit y TRIAMCINOLO NE ACETONIDE (TRIAMCINOL ONE ACETONIDE), 0.5%, CREAM(GM), TOPICAL, FOUGERA, 15 g TUBE Active [id number] 2023 15 Pharmac y Data Transac tion Service Facilit y ZOLPIDEM TARTRATE (ZOLPIDEM TARTRATE), 10MG, TABLET, ORAL, AUROBINDO PHARM, 100 ea. BOTTLE Active [id number] 2023 90 Pharmac y Data Transac tion Service Facilit y Allergies, Adverse Reactions, Alerts Combined list of allergies from Department of Defense and Veterans Affairs facilities. It does not include entries that were removed or entered in error. Substance Category Reaction Severity Reaction type Status Date Reported Comments Source OTHER Drug allergy (disorder) Unknown active [address] [place] [facility] [place] [address] OTHER Propensity to adverse reactions to drug Unknown Active 6 70 77.3KG Ambulatory Pharmacy Immunizations Combined list of available immunizations from the Department of Defense and Veterans Affairs facilities. Immunization Series Date Given Administered By Site Reaction Lot Number CVX Code Drug Armhole Presser Status Comments Source Influenza, inj, MDCK, quadrivalent- pf 2022 171 Seqirus complet ed Influenza , inj, MDCK, quadrival ent-pf 07/27/23 Given Ambulat ory Pharmac y COVID-19 vaccine(Comir sadaf 12y+) 2022 309 PFIZER complet ed COVID-19 vaccine(C omirnaty 12y+) 07/27/23 Given Ambulat ory Pharmac y COVID-19 vaccine(Pfize r Bival 12yr+) 2021 300 PFIZER complet ed COVID-19 vaccine(P fizer Bival 12yr+) 07/21/22 Given Ambulat ory Pharmac y Influenza, inj, MDCK, quadrivalent- pf 2021 171 Seqirus complet ed Influenza , inj, MDCK, quadrival ent-pf 07/14/22 Given Ambulat ory Pharmac y influenza, injectable, quadrivalent- pf 2020 150 complet ed influenza , injectabl e, quadrival ent-pf 08/25/21 Given Ambulat ory Pharmac y COVID Vaccine Pfizer 2020 208 PFIZER complet ed COVID Vaccine Pfizer 08/25/21 Given Ambulat ory Pharmac y COVID-19, mRNA, LNP-S, PF, 30 mcg/0.3 mL dose 2020 [facility] [place] (PFR) Not Given COVID-19, mRNA, LNP-S, PF, 30 mcg/0.3 mL dose [facility] influenza, injectable, quadrivalent, preservative free 2020 PARAS, () Not Given influenza , injectabl e, quadrival ent, preservat gómez free DoD influenza, injectable, quadrivalent- pf 2015 150 complet ed influenza , injectabl e, quadrival ent-pf 08/05/16 Given Ambulat ory Pharmac y influenza, injectable, quadrivalent, preservative free 2015 ALUL, () Not Given influenza , injectabl e, quadrival ent, preservat gómez free DoD tetanus, diphtheria, acellular pertu is 2013 zzWes [id number] [facility] complet ed tetanus, diphtheri a, acellular pertussis 02/01/14 Given Ambulat ory Pharmac y tetanus toxoid, reduced diphtheria toxoid, and acellular pertu is vaccine, adsorbed 1 2013 Unknown, Provider [id number] [employer] (SKB) complet ed tetanus toxoid, reduced diphtheri a toxoid, and acellular pertussis vaccine, adsorbed DoD influenza virus vaccine, live 2008 [id number] [employer] comple t ed influenza virus vaccine, live 06/29/09 Given Ambulat ory Pharmac y influenza virus vaccine, live, attenuated, for intranasal use 1 2008 [id number] [employer] (MED) complet ed influenza virus vaccine, live, attenuate d, for intranasa l use [facility] influenza virus vaccine,split 2007 [id number] 15 sanofi pasteur complet ed influenza virus vaccine,s plit 08/15/08 Given Ambulat ory Pharmac y influenza virus vaccine, split virus (incl. purified surface antigen)-reti red CODE 1 2007 [id number] 15 Sanofi Pasteur ([facility]) complet ed influenza virus vaccine, split virus (incl. purified surface antigen)- retired CODE DoD influenza virus vaccine, live 2006 [id number] 111 [employer] comple t ed influenza virus vaccine, live 09/11/07 Given Ambulat ory Pharmac y influenza virus vaccine, live, attenuated, for intranasal use 1 2006 [id number] 111 MedImmune[employer] Inc. (MED) complet ed influenza virus vaccine, live, attenuate d, for intranasa l use [facility] influenza virus vaccine, whole virus 2005 [id number] 16 sanofi pasteur complet ed influenza virus vaccine, whole virus 09/03/06 Given Ambulat ory Pharmac y influenza virus vaccine,split 2005 [id number] 15 sanofi pasteur complet ed influenza virus vaccine,s plit 09/03/06 Given Ambulat ory Pharmac y influenza virus vaccine, split virus (incl. purified surface antigen)-reti red CODE 1 2005 [id number] 15 Sanofi Pasteur ([facility]) complet ed influenza virus vaccine, split virus (incl. purified surface antigen)- retired CODE [facility] influenza virus vaccine, whole virus 1 2005 Unknown, Provider [id number] 16 Sanofi Pasteur ([facility]) complet ed influenza virus vaccine, whole virus DoD anthrax vaccine 2005 24 complet ed anthrax vaccine 02/07/06 Given Ambulat ory Pharmac y anthrax vaccine 0 2005 24 () complet ed anthrax vaccine DoD influenza virus vaccine,split 2004 15 complet ed influenza virus vaccine,s plit 08/27/05 Given Ambulat ory Pharmac y influenza virus vaccine, split virus (incl. purified surface antigen)-reti red CODE 1 2004 15 Transcribed (TRS) complet ed influenza virus vaccine, split virus (incl. purified surface antigen)- retired CODE [facility] varicella virus vaccine 0 2004 21 () Not Given varicella virus vaccine DoD influenza virus vaccine,split 2004 [id number] 15 sanofi pasteur complet ed influenza virus vaccine,s plit 11/07/04 Given Ambulat ory Pharmac y influenza virus vaccine, split virus (incl. purified surface antigen)-reti red CODE 0 2004 [id number] 15 Sanofi Pasteur ([facility]) complet ed influenza virus vaccine, split virus (incl. purified surface antigen)- retired CODE DoD typhoid vaccine, parenteral 2003 [id number] sanofi pasteur complet ed typhoid vaccine, parentera l 07/11/04 Given Ambulat ory Pharmac y typhoid vaccine, parenteral, other than acetone-kille d, dried 0 2003 [id number] 41 Sanofi Pasteur ([facility]) complet ed typhoid vaccine, parentera l, other than acetone-k illed, dried DoD anthrax vaccine 2003 [id number] [employer] complet ed anthrax vaccine 06/05/04 Given Ambulat ory Pharmac y anthrax vaccine 6 2003 [id number] 24 [employer] [place] ([facility]) complet ed anthrax vaccine DoD anthrax vaccine 2003 [id number] [employer] complet ed anthrax vaccine 12/05/03 Given Ambulat ory Pharmac y anthrax vaccine 5 2003 [id number] [employer] [place] ([facility]) complet ed anthrax vaccine DoD influenza virus vaccine, whole virus 2002 [id number] influenza virus vaccine, whole virus 09/01/03 Given Ambulat ory Pharmac y influenza virus vaccine, whole virus 0 2002 [id number] [facility] ([facility]) complet ed influenza virus vaccine, whole virus DoD anthrax vaccine 2002 [id number] [employer] complet ed anthrax vaccine 05/11/03 Given Ambulat ory Pharmac y anthrax vaccine 4 2002 [id number] [employer] [place] ([facility]) complet ed anthrax vaccine DoD vaccinia (smallpox) vaccine 0 2002 75 () Not Given vaccinia (smallpox ) vaccine DoD anthrax vaccine 2002 [id number] [employer] complet ed anthrax vaccine 12/09/02 Given Ambulat ory Pharmac y anthrax vaccine 3 2002 [id number] [employer] [place] ([facility]) complet ed anthrax vaccine DoD anthrax vaccine 2002 [id number] [employer] complet ed anthrax vaccine 11/25/02 Given Ambulat ory Pharmac y anthrax vaccine 2 2002 [id number] [employer] [place] ([facility]) complet ed anthrax vaccine DoD anthrax vaccine 2002 [id number] [employer] complet ed anthrax vaccine 11/08/02 Given Ambulat ory Pharmac y anthrax vaccine 1 2002 [id number] [employer] [place] ([facility]) complet ed anthrax vaccine DoD influenza virus vaccine, whole virus 2001 [id number] 16 sanofi pasteur complet ed influenza virus vaccine, whole virus 07/29/02 Given Ambulat ory Pharmac y influenza virus vaccine, whole virus 0 2001 [id number] 16 Sanofi Pasteur ([facility]) complet ed influenza virus vaccine, whole virus DoD typhoid vaccine, parenteral 2001 [id number] sanofi pasteur complet ed typhoid vaccine, parentera l 06/24/02 Given Ambulat ory Pharmac y yellow fever vaccine 2001 [id number] sanofi pasteur complet ed yellow fever vaccine 06/24/02 Given Ambulat ory Pharmac y meningococcal polysaccharid e (MPSV4) 2001 [id number] sanofi pasteur complet ed meningoco ccal polysacch aride (MPSV4) 06/24/02 Given Ambulat ory Pharmac y meningococcal polysaccharid e vaccine (MPSV4) 0 2001 [id number] Sanofi Pasteur ([facility]) complet ed meningoco ccal polysacch aride vaccine (MPSV4) DoD yellow fever vaccine 0 2001 [id number] Sanofi Pasteur ([facility]) complet ed yellow fever vaccine DoD typhoid vaccine, parenteral, other than acetone-kille d, dried 0 2001 [id number] 41 Sanofi Pasteur ([facility]) complet ed typhoid vaccine, parentera l, other than acetone-k illed, dried DoD influenza virus vaccine, whole virus 2000 16 complet ed influenza virus vaccine, whole virus 07/21/01 Given Ambulat ory Pharmac y influenza virus vaccine, whole virus 0 2000 16 () complet ed influenza virus vaccine, whole virus DoD influenza virus vaccine, whole virus 2000 [id number] complet ed influenza virus vaccine, whole virus 10/24/00 Given Ambulat ory Pharmac y influenza virus vaccine, whole virus 0 2000 [id number] 16 [facility] ([facility]) complet ed influenza virus vaccine, whole virus [facility] influenza virus vaccine, whole virus 1998 [id number] 16 [facility] complet ed influenza virus vaccine, whole virus 08/22/99 Given Ambulat ory Pharmac y influenza virus vaccine, whole virus 0 1998 [id number] 16 [facility] (CON) complet ed influenza virus vaccine, whole virus [facility] tetanus-dipht h toxoids (Td) adult/adol 08/06/ 1999 [id number] [employer] complet ed tetanus-d iphth toxoids (Td) adult/ado l 05/18/99 Given Ambulat ory Pharmac y tetanus and diphtheria toxoids, adsorbed, preservative free, for adult use (2 Lf of tetanus toxoid and 2 Lf of diphtheria toxoid) 0 1998 [id number] 09 [facility] (CON) complet ed tetanus and diphtheri a toxoids, adsorbed, preservat gómez free, for adult use (2 Lf of tetanus toxoid and 2 Lf of diphtheri a toxoid) DoD hepatitis A adult vaccine 1998 52 complet ed hepatitis A adult vaccine 05/14/99 Given Ambulat ory Pharmac y tetanus-dipht h toxoids (Td) adult/adol 1998 09 complet ed tetanus-d iphth toxoids (Td) adult/ado l 05/14/99 Given Ambulat ory Pharmac y tetanus and diphtheria toxoids, adsorbed, preservative free, for adult use (2 Lf of tetanus toxoid and 2 Lf of diphtheria toxoid) 0 1998 09 () complet ed tetanus and diphtheri a toxoids, adsorbed, preservat gómez free, for adult use (2 Lf of tetanus toxoid and 2 Lf of diphtheri a toxoid) DoD hepatitis A vaccine, adult dosage 2 1998 52 () complet ed hepatitis A vaccine, adult dosage DoD hepatitis A adult vaccine 1998 52 complet ed hepatitis A adult vaccine 11/22/98 Given Ambulat ory Pharmac y hepatitis A vaccine, adult dosage 2 1998 52 () complet ed hepatitis A vaccine, adult dosage DoD influenza virus vaccine, whole virus [id number] [facility] influenza virus vaccine, whole virus 07/19/98 Given Ambulat ory Pharmac y influenza virus vaccine, whole virus 0 [id number] [facility] (CON) complet ed influenza virus vaccine, whole virus DoD hepatitis A adult vaccine 1997 52 complet ed hepatitis A adult vaccine 06/22/98 Given Ambulat ory Pharmac y hepatitis A vaccine, adult dosage 1 1997 52 () complet ed hepatitis A vaccine, adult dosage DoD meningococcal polysaccharid e (MPSV4) 1996 [id number] [facility] complet ed meningoco ccal polysacch aride (MPSV4) 07/27/97 Given Ambulat ory Pharmac y influenza virus vaccine, whole virus 1996 [id number] [facility] complet ed influenza virus vaccine, whole virus 07/27/97 Given Ambulat ory Pharmac y influenza virus vaccine, whole virus 0 1996 [id number] [facility] (CON) complet ed influenza virus vaccine, whole virus DoD meningococcal polysaccharid e vaccine (MPSV4) 0 1996 [id number] [facility] (CON) complet ed meningoco ccal polysacch aride vaccine (MPSV4) DoD hepatitis A adult vaccine 1996 [id number] [facility] complet ed hepatitis A adult vaccine 11/22/96 Given Ambulat ory Pharmac y hepatitis A vaccine, adult dosage 2 1996 [id number] 52 [facility] (CON) complet ed hepatitis A vaccine, adult dosage DoD typhoid, parenteral, AKD 1995 [id number] [facility] complet ed typhoid, parentera l, AKD 05/11/96 Given Ambulat ory Pharmac y hepatitis A adult vaccine 1995 52 complet ed hepatitis A adult vaccine 05/11/96 Given Ambulat ory Pharmac y hepatitis A vaccine, adult dosage 1 1995 52 () complet ed hepatitis A vaccine, adult dosage DoD typhoid vaccine, parenteral, acetone-kille d, dried ([place].S. ) 2 1995 [id number] 53 [facility] (CON) complet ed typhoid vaccine, parentera l, acetone-k illed, dried ([place] ) DoD tuberculin purified protein derivative 1993 CON 96 [facility] complet ed Patient Tolerance : Positive Ambulat ory Pharmac y tuberculin skin test; purified protein derivative solution, intradermal 1 1993 Unknown, Provider CON 96 [facility] (CON) complet ed tuberculi n skin test; purified protein derivativ e solution, intraderm al DoD HepB, Adult 1989 [id number] [facility] complet ed HepB, Adult 06/05/90 Given Ambulat ory Pharmac y hepatitis B vaccine, adult dosage 3 1989 [id number] 43 [facility] (CON) complet ed hepatitis B vaccine, adult dosage DoD yellow fever vaccine 1989 [id number] 37 [facility] complet ed yellow fever vaccine 12/24/89 Given Ambulat ory Pharmac y yellow fever vaccine 0 1989 [id number] 37 [facility] (CON) complet ed yellow fever vaccine DoD poliovirus vaccine, live, oral 1989 02 complet ed polioviru s vaccine, live, oral 10/16/89 Given Ambulat ory Pharmac y trivalent poliovirus vaccine, live, oral 0 1989 02 () complet ed trivalent polioviru s vaccine, live, oral DoD typhoid, parenteral, AKD 1988 53 complet ed typhoid, parentera l, AKD 09/12/89 Given Ambulat ory Pharmac y typhoid vaccine, parenteral, acetone-kille d, dried ([place]. ) 1 1988 53 () complet ed typhoid vaccine, parentera l, acetone-k illed, dried ([place] ) DoD poliovirus vaccine, live, oral 1988 02 complet ed polioviru s vaccine, live, oral 08/19/89 Given Ambulat ory Pharmac y trivalent poliovirus vaccine, live, oral 0 1988 02 () complet ed trivalent polioviru s vaccine, live, oral [facility] tetanus-dipht h toxoids (Td) adult/adol 1988 09 complet ed tetanus-d iphth toxoids (Td) adult/ado l 08/13/89 Given Ambulat ory Pharmac y tetanus and diphtheria toxoids, adsorbed, preservative free, for adult use (2 Lf of tetanus toxoid and 2 Lf of diphtheria toxoid) 0 1988 09 () complet ed tetanus and diphtheri a toxoids, adsorbed, preservat gómez free, for adult use (2 Lf of tetanus toxoid and 2 Lf of diphtheri a toxoid) DoD measles/mumps /rubella virus vaccine 1988 03 complet ed measles/m umps/rube lla virus vaccine 07/27/89 Given Ambulat ory Pharmac y measles, mumps and rubella virus vaccine 0 1988 03 () complet ed measles, mumps and rubella virus vaccine DoD measles/mumps /rubella virus vaccine 1988 03 complet ed measles/m umps/rube lla virus vaccine 07/17/89 Given Ambulat ory Pharmac y measles, mumps and rubella virus vaccine 0 1988 03 () complet ed measles, mumps and rubella virus vaccine DoD tetanus-dipht h toxoids (Td) adult/adol 1988 09 complet ed tetanus-d iphth toxoids (Td) adult/ado l 07/11/89 Given Ambulat ory Pharmac y tetanus and diphtheria toxoids, adsorbed, preservative free, for adult use (2 Lf of tetanus toxoid and 2 Lf of diphtheria toxoid) 0 1988 09 () complet ed tetanus and diphtheri a toxoids, adsorbed, preservat gómez free, for adult use (2 Lf of tetanus toxoid and 2 Lf of diphtheri a toxoid) DoD Encounters Combined list of: 1) Encounters from Department of Veterans Affairs facilities going backup to the last 18 months, not all VA inpatient encounters are included; 2) Encounters from the Department of Defense facilities going backup to 280 months. Location Location Details Encounter Type Encounter Number Reason For Visit Attending Provider ADM Date DC Date Status Disposition Source [employer]([facility]) OUTPATIENT [id number] PURNIMA Mejia 08/15 Released w/o Limitations [employer]([facility]) [employer] [place] ([facility]Phy sical Therapy) OUTPATIENT [id number] MICHAEL ALTAMIRANO 08/29 Released w/o Limitations [employer] [place] ([facility])(P hysical Therapy ) [employer] ([facility])(Phy sical Therapy) OUTPATIENT [id number] MARK PHILIP 08/30 Released w/o Limitations [employer] [place] ([facility])(P hysical Therapy ) [employer] ([facility])(Phy sical Therapy) OUTPATIENT [id number] JESU SERRA 09/04 Released w/o Limitations [employer] ([facility])(P hysical Therapy ) [employer] ([facility])(Phy sical Therapy) OUTPATIENT [id number] JESU SERRA 09/05 Released w/o Limitations [employer] ([facility])(P hysical Therapy ) [employer] ([facility])(Phy sical Therapy) OUTPATIENT [id number] MARK PHILIP 09/12 Released w/o Limitations [employer] ([facility])(P hysical Therapy ) [employer] ([facility])(Phy sical Therapy) OUTPATIENT [id number] JESU SERRA 09/13 Released w/o Limitations [employer] ([facility])(P hysical Therapy ) [employer] ([facility])(Phy sical Therapy) OUTPATIENT [id number] JEAN BRIGGS AIC 09/17 Released w/o Limitations [employer] ([facility])(P hysical Therapy ) [employer] ([facility]Lif e Skills Clinic) OUTPATIENT [id number] GIA MENDOZA 09/26 Released w/o Limitations [employer] ([facility]L coral Skills Clinic) [employer] ([facility])(Phy sical Therapy) OUTPATIENT [id number] JEAN RBIGGS AIC 09/26 Released w/o Limitations [employer] ([facility])(P hysical Therapy ) [employer] ([facility])(Pt Neuromusc uloskelet al Clinic) OUTPATIENT [id number] HOMA POP 10/11 Released w/o Limitations [employer] ([facility])(P t Neuromu sculosk eletal Clinic) [employer] ([facility])(Chi ropractic ) OUTPATIENT [id number] RENATA ALCANTARA 03/05 Released w/o Limitations [employer] ([facility])(C hiropra ctic) [employer] ([facility])(Chi ropractic ) OUTPATIENT [id number] RENATA ESTRELLA 03/20 Released w/o Limitations [employer] ([facility])(C hiropra ctic) [employer] ([facility])(Chi ropractic ) OUTPATIENT [id number] RENATA ESTRELLA 03/27 Released w/o Limitations [employer] ([facility])(C hiropra ctic) [employer] ([facility])(Chi ropractic ) OUTPATIENT [id number] RENATA ESTRELLA 04/08 Released w/o Limitations [employer] ([facility])(C hiropra ctic) [employer] ([facility])(Chi ropractic ) OUTPATIENT [id number] RENATA ESTRELLA 04/22 Released w/o Limitations [employer] ([facility])(C hiropra ctic) [employer] ([facility])(Lif e Skills Clinic) OUTPATIENT [id number] [facility] [employer] [employer] GIA MENDOZA 05/01 Released w/o Limitations [employer] ([facility])(L coral Skills Clinic) [employer] ([facility])(Chi ropractic ) OUTPATIENT [id number] RENATA ESTRELLA 05/07 Released w/o Limitations [employer] ([facility])(C hiropra ctic) [employer] ([facility])(Chi ropractic ) OUTPATIENT [id number] RENATA ESTRELLA 05/15 Released w/o Limitations [employer] ([facility])(C hiropra ctic) [employer] ([facility])(Chi ropractic ) OUTPATIENT [id number] RENATA ESTRELLA 05/30 Released w/o Limitations [employer] ([facility])(C hiropra ctic) [employer] ([facility])(Chi ropractic ) OUTPATIENT [id number] RENATA ESTRELLA 06/13 Released w/o Limitations [employer] ([facility])(C hiropra ctic) [employer] ([facility])([facility] Non-GME FHI1) OUTPATIENT [id number] painful cyst behind earx 4 days JAY STOKES 07/09 Released w/o Limitations [employer] ([facility])(F amily Practic e Non-GME FHI1) [address] [place] [address] [employer] ([facility])(Chi ropractic ) OUTPATIENT [id number] RENATA ESTRELLA 07/15 Released w/o Limitations [facility] [employer] ([facility])(C hiropra ctic) [facility] [employer] ([facility])([facility] Non-GME FHI1) OUTPATIENT [id number] MARCO ANTONIO Das 07/24 Released w/o Limitations [employer] ([facility])(F amily Practic e Non-GME FHI1) [address] [place] [address] [employer] ([facility])(Chi ropractic ) OUTPATIENT [id number] RENATA ESTRELLA 07/29 Released w/o Limitations [facility] [employer] ([facility])(C hiropra ctic) [facility] [employer] ([facility])(Opt ometry) OUTPATIENT [id number] routine eye exam ELÍAS FARIA 08/02 Released w/o Limitations [address] [place] [address] [employer] ([facility])(O ptometr y) [address] [place] [address] [employer] ([facility])([facility] Non-GME FHI2) OUTPATIENT [id number] back pain being seen bu chiropr AGUSTIN Hunter 08/07 Released w/o Limitations [employer] ([facility])(F amily Practic e Non-GME FHI2) [facility] [employer] ([facility])(Opt ometry) OUTPATIENT [id number] SCL f/u ELÍAS FARIA 08/08 Released w/o Limitations [facility] [employer] ([facility])(O ptometr y) [facility] [employer] ([facility])(Chi ropractic ) OUTPATIENT [id number] RENATA ESTRELLA 08/12 Released w/o Limitations [facility] [employer] ([facility])(C hiropra ctic) [facility] [employer] ([facility])(Opt ometry) OUTPATIENT [id number] vf 24-2/IO P's ELÍAS FARIA 08/16 Released w/o Limitations [facility]3] Group [employer] ([facility])(O ptometr y) [address] [place] [address] [employer] ([facility])(Chi ropractic ) OUTPATIENT [id number] RENATA ESTRELLA 08/26 Released w/o Limitations [address] [place] [address] [employer] ([facility])(C hiropra ctic) [address] [place] [address] [employer] ([facility])(Rafael matology) OUTPATIENT [id number] SEBACEO US GLAND DISORDE R MADAY STEWART 09/03 Released w/o Limitations [address] [place] [address] [employer] ([facility])(D ermatol ogy) [address] [place] [address] [employer] ([facility])(Chi ropractic ) OUTPATIENT [id number] RENATA ESTRELLA 09/09 Released w/o Limitations [address] [place] [address] [employer] ([facility])(C hiropra ctic) [address] [place] [address] [employer] ([facility])(Rafael matology) OUTPATIENT [id number] cyst excisio n MADAY STEWART 09/12 Released w/o Limitations [address] [place] [address] [employer] ([facility])(D ermatol ogy) [address] [place] [address] [employer] ([facility])(Opt ometry) OUTPATIENT [id number] PT here for IOP check ELÍAS FARIA 09/16 Released w/o Limitations [address] [place] [address] [employer] ([facility])(O ptometr y) [address] [place] [address] [employer] ([facility])(Chi ropractic ) OUTPATIENT [id number] RENATA ESTRELLA 09/23 Released w/o Limitations [address] [place] [address] [employer] ([facility])(C hiropra ctic) [address] [place] [address] [employer] ([facility])(Rafael matology) OUTPATIENT [id number] Suture removal MADAY STEWART 09/23 Released w/o Limitations [address] [place] [address] [employer] ([facility])(D ermatol ogy) [address] [place] [address] [employer] ([facility])(Rafael matology) TELE CONSULT [id number] s/p ear cyst removal MADAY STEWART 10/[address] [place] [address] [employer] ([facility])(D ermatol ogy) [facility] [employer] ([facility])(Chi ropractic ) OUTPATIENT [id number] RENATA ESTRELLA 10/10 Released w/o Limitations [facility] [employer] ([facility])(C hiropra ctic) [facility] [employer] ([facility])([place] - Orth[place]) OUTPATIENT [id number] TENDONI TIS ILENE IRVING 10/16 Released w/o Limitations [facility]3] [employer] ([facility])(V A - Orthope dics) [facility] [employer] ([facility])(Occ upational Therapy) OUTPATIENT [id number] r shoulde r vidhyae ment JAEC VENEGAS 10/18 Released w/o Limitations [facility] [employer] ([facility])(O ccupati onal Therapy ) [address] [place] [address] [employer] [facility])(Chi ropractic ) OUTPATIENT [id number] RENATA ESTRELLA 10/23 Released w/o Limitations [facility] [employer] ([facility])(C hiropra ctic) [address] [place] [address] [employer] [facility])(Rafael matology) OUTPATIENT [id number] cyst excisio n MADAY STEWART 11/07 Released w/o Limitations [address] [place] [address] [employer] ([facility])(D ermatol ogy) [address] [place], [place] [address]B ([facility])(Occ upational Therapy) OUTPATIENT [id number] JACE VENEGAS 11/08 Released w/o Limitations [facility] [employer] ([facility])(O ccupati onal Therapy ) [address] [place] [address] [employer] ([facility])(Chi ropractic ) OUTPATIENT [id number] RENATA ESTRELLA 11/13 Released w/o Limitations [address] [place] [address] [employer] ([facility])(C hiropra ctic) [address] [place] [address] [employer] ([facility])([place] - Orthoped[place] cs) OUTPATIENT [id number] f/u r swhould er cmk ILENE KING 11/14 Released w/o Limitations [facility]3] [employer] ([facility])(V A - Orthope dics) [address] [place] [address] [employer] ([facility])(Chi ropractic ) OUTPATIENT [id number] RENATA ESTRELLA 12/04 Released w/o Limitations [address] [place] [address] [employer] ([facility])(C hiropra ctic) [address] [place] [address] [employer] ([facility])(Rafael matology) OUTPATIENT [id number] cyst on abd MADAY STEWART L 12/09 Released w/o Limitations [address] [place] [address] [employer] ([facility])(D ermatol ogy) [address] [place] [address] [employer] [facility])(Opt ometry) OUTPATIENT [id number] 3 MO GLAU CHECK/V /JUL SHOW AT 0830 ELÍAS FARIA 12/10 Released w/o Limitations [address] [place] [address] [employer] ([facility])(O ptometr y) [address] [place] [address] [employer] ([facility])(Chi ropractic ) OUTPATIENT [id number] RENATA ESTRELLA 12/16 Released w/o Limitations [address] [place] [address] [employer] ([facility])(C hiropra ctic) [address] [place] [address] [employer] ([facility])(Chi ropractic ) OUTPATIENT [id number] RENATA ESTRELLA 12/31 Released w/o Limitations [address] [place] [address] [employer] ([facility])(C hiropra ctic) [address] [place] [address] [employer] ([facility])(Opt ometry) OUTPATIENT [id number] 1 month f/u for glaucom a med check, SCL f/u ELÍAS FARIA 01/13 Released w/o Limitations [address] [place] [address] [employer] ([facility])(O ptometr y) [address] [place] [address] [employer] ([facility])(Chi ropractic ) OUTPATIENT [id number] RENATA ESTRELLA 01/13 Released w/o Limitations [address] [place] [address] [employer] ([facility])(C hiropra ctic) [address] [place] [address] [employer] ([facility])(Rafael matology) OUTPATIENT [id number] cyst PATMADAY L 01/14 Released w/o Limitations [address] [place] [address] [employer] ([facility])(D ermatol ogy) [address] [place] [address] [employer] [facility])(Chi ropractic ) OUTPATIENT [id number] RENATA ESTRELLA Tree 02/03 Released w/o Limitations [employer] ([facility])(Teri dueñas ctic) [facility]) OUTPATIENT [id number] [employer] ALEJANDRA Guzmán 09/03 Released w/o Limitations [facility]( [facility]) [facility]) TELE CONSULT [id number] SUTURE REMOVAL GAVIN CENTENO 09/09 [facility]( [place] [facility]) [facility]) OUTPATIENT [id number] PHA PHILLY STEELE 09/12 Released w/o Limitations [facility]( [place] [facility]) [facility]) OUTPATIENT [id number] MEDS REFILL MARIA, MARGY T 09/23 Released w/o Limitations [facility]( [place] [facility]) [facility] [place]) OUTPATIENT [id number] f/u glaucom a suspect PREMA CHAWLA 09/29 Released w/o Limitations [facility]( [facility] ry [facility] [place] ) [facility] [place]) OUTPATIENT [id number] iop check/1 530 MATHEUS Grimes 10/16 Released w/o Limitations [facility]( [facility] [place] ) [employer]([facility] Team B-NonAd) OUTPATIENT [id number] Rash on left hand GARCÍA LUCAS 11/18 Released w/o Limitations [employer]([facility] Team B-NonAd ) [facility]) OUTPATIENT [id number] WAIVER MARIA, MARGY T 12/08 Released with Work/Duty Limitations [facility]( [place] [facility]) [facility]) OUTPATIENT [id number] Right shoulde r ELÍAS Corona 12/22 Released w/o Limitations [facility]( Orthope dic [facility]) [facility]) OUTPATIENT [id number] pdhra MARIA, MARGY T 02/24 Released w/o Limitations [facility]( [place] [facility]) [facility]) OUTPATIENT [id number] F/U FOR BLISTER S ON HAND MARIA, MARGY T 04/01 Released w/o Limitations [facility]( [place] [facility]) [facility] [place]) OUTPATIENT [id number] dfe/iop check/n eeds glaucom a med refill IRISMATHEUS Leela 04/08 Released w/o Limitations [facility]( [facility] [place] ) [facility]) OUTPATIENT [id number] HEMORRH OIDS MARIA, MARGY T 04/16 Released w/o Limitations [facility]( [place] [facility]) [facility](Fl ight Med [place]) OUTPATIENT [id number] [facility] JOSE BENDER 04/29 Released w/o Limitations [facility]( Flight [facility] [place] ) [facility]) OUTPATIENT [id number] F/U FOR BLISTER S ON HAND MARIA, [facility] T 05/05 Released w/o Limitations [facility]( [place] [facility]) [facility](De rmatology [facility]) OUTPATIENT [id number] DYSHIDR OSKIM RICHEY 05/19 Released w/o Limitations [facility]( [facility]y [facility] [place] [facility]) [facility](Op hthalmolo gy Comprehen [facility]) OUTPATIENT [id number] GLAUCOM A OPEN-AN GLE GAVIN CORTEZ T 05/19 Released w/o Limitations [facility]( Ophthal mology Compreh ensive [place]) [facility] OUTPATIENT [id number] FOLLOW UP 41 year old male with history of eczema on fingers x 10 months. ROBINA RAMIREZ 09/10 Released w/o Limitations [facility]( [facility] [place]) [facility] [id number] DAVI RESENDIZ 12/14 Released w/o Limitations [facility]( Ophthal mology Compreh ensive [place]) [facility] PH[facility]) OUTPATIENT [id number] med refills ,sleep MARIA, [facility] T 04/04 Released w/o Limitations [facility]( [place] [facility]) [facility] PH[facility]) OUTPATIENT [id number] moles removed BRADEN BANKS 06/17 Released w/o Limitations [facility]( [place] [facility]) [facility]) OUTPATIENT [id number] mole removal BRADEN BANKS 06/22 Released w/o Limitations [facility]( [place] [facility]) [facility] PH[facility]) TELE CONSULT [id number] TEST RESULTS BRADEN BANKS 07/12 [facility]( [place] [facility]) [facility](De rmatology [facility]) OUTPATIENT [id number] COMPOUN D NEVUS DAMION KING V 07/18 Released w/o Limitations [facility]( [facility]ato [facility]y [facility] [place] [facility]) [facility]) OUTPATIENT [id number] lump on the arm follow up MARGY MARIA 08/01 Released w/o Limitations [facility]( [place] [facility]) [facility] TELE CONSULT [id number] RAD results CHIDI COLLADO Leela 08/10 [facility] [place] [facility] TELE CONSULT [id number] CALL CENTER- TEST RESULTS MICHELLE MARTIN Amaury 09/01 [facility] [place] [facility]) OUTPATIENT [id number] mri results YEYO LAW Jv 09/12 Released w/o Limitations [facility]( [place] [facility]) [facility](Op hthalmolo gy [facility] [place]) OUTPATIENT [id number] appt MARGA ANGELES 09/27 Released w/o Limitations [facility]( Ophthal mology [place] [facility] [place]) [facility](Ph ysical Therapy [facility]) OUTPATIENT [id number] NONALLO PATHIC LESIONS SACRAL ELÍAS BARAJAS 09/28 Released w/o Limitations [facility]( [facility]ica [facility] Therapy [place]) [facility](Ph ysical Therapy (Techs)) OUTPATIENT [id number] HOMA SINGH 10/10 Released w/o Limitations [facility]( [facility] Therapy [facility]) ) [facility]Ph [facility]sical Therapy [facility])) OUTPATIENT [id number] ELISEONILSACody Soares 10/11 Released w/o Limitations [facility]( [facility] l Therapy [facility]) ) [facility]Ph [facility]ical Therapy [facility])) OUTPATIENT [id number] MAX ESTEVEZ Alannah 10/24 Released w/o Limitations [facility]( Physica l Therapy ([facility]) ) [facility]) TELE CONSULT [id number] MED RENEWAL MICHELLE MARTIN Amaury 10/26 [facility] [place] [facility]) [facility]Ph [facility]sical Therapy ([facility])) OUTPATIENT [id number] MAX ESTEVEZ Alannah 10/26 Released w/o Limitations [facility]( Physica l Therapy (Tech[facility]) ) [facility]) OUTPATIENT [id number] routine check up and meds discuss ion NICHELLE AKERS 11/04 Released w/o Limitations [facility] [place] [facility]) [facility] [place]) OUTPATIENT [id number] KASHMIR MOISE 11/09 Released w/o Limitations [facility]( [facility] [place]) [facility](Ph [facility]sical Therapy [place]) OUTPATIENT [id number] JORGE OLMOS 11/14 Released w/o Limitations [facility]( [facility]ica [facility] Therapy [facility]) [facility](De [facility]ology [facility] [place]) OUTPATIENT [id number] f/u on acne per pt DAMION KING V 11/17 Released w/o Limitations [facility]( [facility] [place]) [facility] TELE CONSULT [id number] CALL CENTER - NEEDED DOCUMEN ZOFIA SAMUEL I 11/29 [facility] [place] [facility]) OUTPATIENT [id number] back pains NICHELLE AKERS 12/02 Released with Work/Duty Limitations [facility] [place] [facility]) [facility] [place]) OUTPATIENT [id number] 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 INDIO JADE 12/12 Released w/o Limitations [facility] [place] [place] OUTPATIENT [id number] 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 INDIO Keller 12/23 Released w/o Limitations [facility] [place] [place]) TELE CONSULT [id number] F/U - C-GUIDO ELLIS 12/26 [facility] [place] [place]) OUTPATIENT [id number] f/u for surgery KASHMIR Multani 02/15 Released w/o Limitations [facility]( [facility] [place]) [facility]thalmolo gy [facility] [place]) OUTPATIENT [id number] FU APPT -CLM LALITA-MARGA OSHEA 04/04 Released w/o Limitations [facility]( Ophthal [facility]ology [place] [facility] [place]) [facility] [place]) OUTPATIENT [id number] KASHMIR MOISE 04/05 Released w/o Limitations [facility]( [facility] [place]) [facility]-Sc[facility] [place]) OUTPATIENT [id number] [facility] ERIK CONTRERAS 04/05 Released w/o Limitations [facility]( [facility] [place]) [facility] [place]) OUTPATIENT [id number] pre-op JASIEL HUYNH 05/10 Released w/o Limitations [facility]( [facility] [place] [place]) OUTPATIENT [id number] C5 ZIYAD FRANCE 05/10 Released w/o Limitations [facility]( [facility] [place]) [facility] DIRECT TO [facility] FROM OTHER THAN ER OR APU [id number] KASHMIR MOISE 05/12 [facility]MISSION [facility] [place]) OUTPATIENT [id number] EKG reading CAROLA NAVA I 05/16 Released w/o Limitations [facility]( [facility] [place]) [facility]ology [facility] [place]) OUTPATIENT [id number] EKG reading DESIREE PHELANT 06/01 Released w/o Limitations [facility]( [facility] [place]) [facility] [place]) OUTPATIENT [id number] FIRST FOLLOW UP POST SURGERY KASHMIR MOISE 06/15 Released w/o Limitations [facility]( [facility] [place]) [facility]) TELE CONSULT [id number] cc: pt request ing sleep study bay phan cb# [phone] LESLIE WILLS 06/23 [facility]( [place] [facility]) [facility] C_Non-AD) OUTPATIENT [id number] pt needs his medical records review form signed NICHELLE AKERS 06/29 Released w/o Limitations [facility]( [facility] Med Cl Team C_Non-A D) [facility]) OUTPATIENT [id number] KRISTINA Mejia 07/07 Released w/o Limitations [facility] [place] [facility]) [facility] TELE CONSULT [id number] CC - Retirem ent PE done on Jun. - needs retirem ent paperwo rk back. NICHELLE AKERS 07/10 [facility]( [place] [facility]) [facility]ep ([facility]ulm) [facility]) OUTPATIENT [id number] Snoring ELÍAS BARRY 07/15 Released w/o Limitations [facility]( Sleep (Pulm) [facility]) [facility] [place]) OUTPATIENT [id number] F/U KASHMIR MOISE 07/20 Released w/o Limitations [facility]( [facility] [place]) [facility](De [facility]tal [facility] [place]) DENTAL [id number] Retirem ent Exam RALPH SINGH 07/25 Released w/o Limitations [facility]( [facility] [place] ) [facility] [place]) DENTAL [id number] LUCIUS Joiner 08/14 Released w/o Limitations [facility]( [facility] [place] ) [facility]) TELE CONSULT [id number] MRI report. KESHA BAUER 08/14 [facility] [place] [facility]) [facility] TELE CONSULT [id number] cc: MRI Results . cb# [phone] KESHA BAUER 08/16 [facility] [place] [facility]) [facility] [place]) OUTPATIENT [id number] F/U CT results KASHMIR MOISE 08/24 Released w/o Limitations [facility]( [facility] [place]) [facility]Sl [facility]ep (Pulm) [facility]) OUTPATIENT [id number] cpap titrati on ELÍAS BARRY 08/28 Released w/o Limitations [facility]( Sleep (Pulm) Cl [facility]) [facility] Performer ) OUTPATIENT [id number] KRISTINA COTA 09/18 Released w/o Limitations [facility]( [place] Perform er) [facility](Ph ysical Therapy [place]) OUTPATIENT [id number] DJD of AC joint ELÍAS BARAJAS 09/19 Released w/o Limitations [facility]( Physica l Therapy [place]) [facility]) TELE CONSULT [id number] cc-Refe rral re-entr y LESLIE WILLS 09/22 [facility] [place] [facility]) [facility]Op [facility]thalmolo gy [facility] [place]) OUTPATIENT [id number] fu appt -CLM MARGA ANGELES 09/26 Released w/o Limitations [facility]( [facility]ology [place]) [facility] [place]) OUTPATIENT [id number] doctor' s booking CHEVY BARRY 11/02 Released w/o Limitations [facility]( [facility] [place]) [facility]) TELE CONSULT [id number] Sleep med. refill .c/b# and [phone] JERSEY POP 12/06 [facility]( [place] [facility]) [facility](Op [facility]thalmolo gy [facility] [place]) OUTPATIENT [id number] LASER - TREATME NT - CLM MARGA ANGELES 12/12 [facility] Limitations [facility] [place] [place] OUTPATIENT [id number] rtn/ cl update MATHEUS SIMMONS 12/19 Released w/o Limitations [facility]( Optomet ry [facility] ) [facility] [place] [address]([facility] [place],[facility]) OUTPATIENT [id number] possibl e infecti on JACE RENNER 02/07 Released w/o Limitations [facility] [place] [address]([facility], [facility]) [place] [address]([facility]) OUTPATIENT [id number] f/u JACE RENNER 02/10 Released w/o Limitations [facility] [place] [address] [place] [address]([facility]) OUTPATIENT [id number] poss uti ZURDO JACE 02/24 Released w/o Limitations [facility] [place] [address]([facility], [facility]) [place] [address](PT Inpatient [facility]) OUTPATIENT [id number] YEYO PARR 03/30 Released with Work/Duty Limitations [facility] [place] [address](P T Inpatie nt [facility]) [place] [address](PT Inpatient [facility]) OUTPATIENT [id number] YEYO PARR 04/09 Released with Work/Duty Limitations [facility] [place] [address](P T Inpatie nt [facility]) [place] [address](PT Inpatient [facility]) OUTPATIENT [id number] YEYO PARR 04/14 Released with Work/Duty Limitations [facility] [place] [address](P T Inpatie nt [facility]) [place] [address](PT Inpatient [facility]) OUTPATIENT [id number] YEYO PARR 04/23 Released with Work/Duty Limitations [facility] [place] [address](P T Inpatie nt [facility]) [place] [address](PT Inpatient [facility]) OUTPATIENT [id number] HUBERTRICCARDO 05/03 Released w/o Limitations [facility] [place] [address](P T Inpatie nt [facility]) [place] [address](PT Inpatient [facility]) OUTPATIENT [id number] YUE VILLAR 05/05 Released w/o Limitations [facility] [place] [address](P T Inpatie nt [facility]) [place] [address](PT Inpatient [facility]) OUTPATIENT [id number] BIN FERNANDEZ 05/07 Released w/o Limitations [facility] [place] [address](P T Inpatie nt [facility]) [place] [address](PT Inpatient [facility]) OUTPATIENT [id number] YEYO PARR 05/14 Released with Work/Duty Limitations [facility] [place] [address](P T Inpatie nt [facility]) [place] [address](Phy sical Therapy [facility]) OUTPATIENT [id number] RENEE HOPKINS 05/19 Released w/o Limitations [facility] [place] [address](P hysical Therapy [facility]) [place] [address](Phy sical Therapy [facility]) OUTPATIENT [id number] RENEE Benson 05/24 Released w/o Limitations [facility] [place] [address](P hysical Therapy [facility]) [place] [address](Phy sical Therapy [facility]) OUTPATIENT [id number] JD Gonzalez 05/26 Released w/o Limitations [facility] [place] [address](P hysical Therapy [facility]) [place] [address](PT Inpatient [facility]) OUTPATIENT [id number] YEYO PARR 06/09 Released with Work/Duty Limitations [facility] [place] [address](P T Inpatie nt [facility]) [place] [address](Phy sical Therapy [facility]) OUTPATIENT [id number] RENEE Benson 06/16 Released w/o Limitations [facility] [place] [address](P hysical Therapy [facility]) [place] [address](Phy sical Therapy [facility]) OUTPATIENT [id number] RENEE Benson F 06/21 Released w/o Limitations [facility] [place] [address](P hysical Therapy [facility]) [place] [address](Phy sical Therapy [facility]) OUTPATIENT [id number] RENEE Benson F 06/23 Released w/o Limitations [facility] [place] [address](P hysical Therapy [facility]) [place] [address](Phy sical Therapy [facility]) OUTPATIENT [id number] RENEE Benson F 06/25 Released w/o Limitations [facility] [place] [address](P hysical Therapy [facility]) [place] [address](Phy sical Therapy [facility]) OUTPATIENT [id number] RENEE Benson F 06/28 Released w/o Limitations [facility] [place] [address](P hysical Therapy [facility]) [place] [address](Phy sical Therapy [facility]) OUTPATIENT [id number] RENEE Benson 06/30 Released w/o Limitations [facility] [place] [address](P hysical Therapy [facility]) [place] [address](Phy sical Therapy [facility]) OUTPATIENT [id number] RENEE Benson 07/12 Released w/o Limitations [place] [address](P hysical Therapy [facility]) [place] [address](Phy sical Therapy [facility]) OUTPATIENT [id number] Gerald WAYERENEE 07/14 Released w/o Limitations [facility] [place] [address](P hysical Therapy [facility]) [place] [address](PT Inpatient [facility]) OUTPATIENT [id number] YEYO PARR 07/16 Released with Work/Duty Limitations [facility] [place] [address](P T Inpatie nt [facility]) [place] [address](Phy sical Therapy [facility]) OUTPATIENT [id number] Gerald WAYERENEE 07/16 Released w/o Limitations [facility] [place] [address](P hysical Therapy [facility]) [place] [address](Phy sical Therapy [facility]) OUTPATIENT [id number] Gerald WAYERENEE 07/19 Released w/o Limitations [facility] [place] [address](P hysical Therapy [facility]) [place] [address](Phy sical Therapy [facility]) OUTPATIENT [id number] RENEE Benson 07/21 Released w/o Limitations [facility] [place] [address](P hysical Therapy [facility]) [place] [address](Phy sical Therapy [facility]) OUTPATIENT [id number] RENEE Benson F 07/23 Released w/o Limitations [place] [address](P hysical Therapy [facility]) [facility] [place] [address](Phy sical Therapy [facility]) OUTPATIENT [id number] JD Gonzalez R 07/28 Released w/o Limitations [place] [address](P hysical Therapy [facility]) [facility] [place] [address](Phy sical Therapy [facility]) OUTPATIENT [id number] RENEE Benson F 07/30 Released w/o Limitations [facility] [place] [address](P hysical Therapy [facility]) [place] [address](Phy sical Therapy [facility]) OUTPATIENT [id number] RENEE Benson F 08/02 Released w/o Limitations [facility] [place] [address](P hysical Therapy [facility]) [facility] [place] [address](Phy sical Therapy [facility]) OUTPATIENT [id number] RENEE Benson F 08/04 Released w/o Limitations [facility] [place] [address](P hysical Therapy [facility]) [facility] [place] [address](Phy sical Therapy [facility]) OUTPATIENT [id number] CHRISTINE Ayala R 08/06 Released w/o Limitations [facility] [place] [address](P hysical Therapy [facility]) [facility] [place] [address](Phy sical Therapy [facility]) OUTPATIENT [id number] JD Gonzalez R 08/11 Released w/o Limitations [facility] [place] [address](P hysical Therapy [facility]) [facility] [place] [address](Phy sical Therapy [facility]) OUTPATIENT [id number] RENEE Benson F 08/13 Released w/o Limitations [facility] [place] [address](P hysical Therapy [facility]) [place] [address](Phy sical Therapy [facility]) OUTPATIENT [id number] RENEE Benson F 08/16 Released w/o Limitations [facility] [place] [address](P hysical Therapy [facility]) [place] [address](Phy sical Therapy [facility]) OUTPATIENT [id number] RENEE Benosn F 08/18 Released w/o Limitations [facility] [place] [address](P hysical Therapy [facility]) [place] [address](Phy sical Therapy [facility]) OUTPATIENT [id number] RENEE Benson F 08/20 Released w/o Limitations [facility] [place] [address](P hysical Therapy [facility]) [place] [address](Uro logy Clinic [facility]) OUTPATIENT [id number] BILL RODRIGUEZ 09/23 Released w/o Limitations [facility] [place] [address](U rology Clinic [facility]) [facility] [address](Daisha rgency Med [facility]) OUTPATIENT [id number] WILBERTO BALLARD 09/24 Released w/o Limitations [facility] [place] [address](E mergenc y Med [facility]) [place] [address](PT Inpatient [facility]) OUTPATIENT [id number] YEYO PARR 10/01 Released with Work/Duty Limitations [facility] [place] [address](P T Inpatie nt [facility]) [place] [address](Uro logy Clinic [facility]) OUTPATIENT [id number] cysto-f samuel w/BILL Rodriguez H 10/22 Released w/o Limitations [facility] [place] [address](U rology [facility]) [facility] [place] [address](Phy sical Therapy [facility]) OUTPATIENT [id number] YEYO PARR 11/05 Released with Work/Duty Limitations [facility] [place] [address](P hysical Therapy [facility]) [facility] [address]([facility] [place]) OUTPATIENT [id number] hole behind left ear JACE RENNER 11/08 Released w/o Limitations [facility] [place] [address](F [facility], [facility]) [facility] [address](Daisha rgency [facility]) OUTPATIENT [id number] WILBERTO BALLARD 11/13 Released w/o Limitations [facility] [place] [address](E mergenc y [facility]) [address] [place] [address] [facility]All ergy Resource Sharing) OUTPATIENT [id number] unknown allergi c reactio [id number] KASHMIR PARIS 02/01 Released w/o Limitations [address] [place] [address] [facility])(A llergy Resourc e Sharing ) [address] [place] [address] [facility]Opt ometry) OUTPATIENT [id number] REE/Gla ucoma ORIANA LANDRY 03/21 Released w/o Limitations [address] [place] [address] [facility])(O ptometr y) [address] [place] [address] [facility]Opt ometry) OUTPATIENT [id number] 24-2 HUSSEIN LOCKHART 04/25 Released w/o Limitations [address] [place] [address] [facility])(O ptometr y) [address] [place] [address] [facility]Opt ometry) OUTPATIENT [id number] 24-2/io p/pach HUSSEIN LOCKHART 10/24 Released w/o Limitations [address] [place] [address] [facility])(O ptometr y) [facility] Outpatient Encounter [id number] 03/13 [facility] LENY N 0055A-375 th [facility] Between Visit [id number] 04/29 Discharge Disposition: Home or Self Care 0055A-3 75th [facility] 0055A-375 th [facility] Outpatient [id number] JUAN KESHAJAYA 05/21 Discharge Disposition: Home or Self Care 0055A-3 75th [facility] 0055A-375 th [facility] Outpatient [id number] JUANCody HAYEEDY 05/21 Discharge Disposition: Home or Self Care 0055A-3 75th [facility] 0055A-375 th [facility] Between Visit [id number] 05/21 Discharge Disposition: Home or Self Care 0055A-3 75th [facility] 0055A-375 th [facility] Outpatient [id number] YEYO TORRES 05/21 Discharge Disposition: Home or Self Care 0055A-3 75th [facility] Procedures Combined list of: 1) Procedures from Department of Veterans Affairs facilities going back up to thelast 18 months, not all [place] non-surgical procedures are included; 2) All procedures from the Department of Defense facilities. Procedure Procedure Type Code Date Perfomer Comments Sourc e No data available for this section [facility] PHYSICAL THERAPY RE-EVALUATION 2013 [facility] CYSTOURETHROSCOPY (SEPARATE PROCEDURE) 2013 [facility] PHYSICAL THERAPY RE-EVALUATION 2012 DoD INJECTION, RANITIDINE HYDROCHLORIDE, 25 MG 2012 DoD THERAPEUTIC PROCEDURE(S), GROUP (2 OR MORE INDIVIDUALS) 2012 DoD THERAPEUTIC PROCEDURE(S), GROUP (2 OR MORE INDIVIDUALS) 2012 DoD THERAPEUTIC PROCEDURE(S), GROUP (2 OR MORE INDIVIDUALS) 2012 DoD THERAPEUTIC PROCEDURE, 1 OR MORE AREAS, EACH 15 MINUTES; AQUATIC THERAPY WITH THERAPEUTIC EXERCISES 2012 DoD THERAPEUTIC PROCEDURE(S), GROUP (2 OR MORE INDIVIDUALS) 2012 DoD THERAPEUTIC PROCEDURE(S), GROUP (2 OR MORE INDIVIDUALS) 2012 DoD THERAPEUTIC PROCEDURE(S), GROUP (2 OR MORE INDIVIDUALS) 2012 DoD THERAPEUTIC PROCEDURE(S), GROUP (2 OR MORE INDIVIDUALS) 2012 DoD THERAPEUTIC PROCEDURE(S), GROUP (2 OR MORE INDIVIDUALS) 2012 DoD THERAPEUTIC PROCEDURE(S), GROUP (2 OR MORE INDIVIDUALS) 2012 DoD THERAPEUTIC PROCEDURE(S), GROUP (2 OR MORE INDIVIDUALS) 2012 DoD THERAPEUTIC PROCEDURE(S), GROUP (2 OR MORE INDIVIDUALS) 2012 DoD THERAPEUTIC PROCEDURE(S), GROUP (2 OR MORE INDIVIDUALS) 2012 DoD THERAPEUTIC PROCEDURE(S), GROUP (2 OR MORE INDIVIDUALS) 2012 DoD PHYSICAL THERAPY RE-EVALUATION 2012 DoD THERAPEUTIC PROCEDURE(S), GROUP (2 OR MORE INDIVIDUALS) 2012 DoD THERAPEUTIC PROCEDURE(S), GROUP (2 OR MORE INDIVIDUALS) 2012 DoD THERAPEUTIC PROCEDURE(S), GROUP (2 OR MORE INDIVIDUALS) 2012 DoD THERAPEUTIC PROCEDURE(S), GROUP (2 OR MORE INDIVIDUALS) 2012 DoD THERAPEUTIC PROCEDURE(S), GROUP (2 OR MORE INDIVIDUALS) 2012 DoD THERAPEUTIC PROCEDURE(S), GROUP (2 OR MORE INDIVIDUALS) 2012 DoD THERAPEUTIC PROCEDURE(S), GROUP (2 OR MORE INDIVIDUALS) 2012 DoD THERAPEUTIC PROCEDURE(S), GROUP (2 OR MORE INDIVIDUALS) 2012 DoD PHYSICAL THERAPY RE-EVALUATION 2012 DoD THERAPEUTIC PROCEDURE, 1 OR MORE AREAS, EACH 15 MINUTES; AQUATIC THERAPY WITH THERAPEUTIC EXERCISES 2012 DoD THERAPEUTIC PROCEDURE(S), GROUP (2 OR MORE INDIVIDUALS) 2012 DoD THERAPEUTIC PROCEDURE(S), GROUP (2 OR MORE INDIVIDUALS) 2012 DoD PHYSICAL THERAPY RE-EVALUATION 2012 DoD APPLICATION OF A MODALITY TO 1 OR MORE AREAS; TRACTION, MECHANICAL 2012 DoD APPLICATION OF A MODALITY TO 1 OR MORE AREAS; TRACTION, MECHANICAL 2012 DoD APPLICATION OF A MODALITY TO 1 OR MORE AREAS; TRACTION, MECHANICAL 2012 DoD APPLICATION OF A MODALITY TO 1 OR MORE AREAS; TRACTION, MECHANICAL 2012 DoD PHYSICAL THERAPY RE-EVALUATION 2012 DoD OSTEOPATHIC MANIPULATIVE TREATMENT (OMT); 1-2 BODY REGIONS INVOLVED 2012 DoD PHYSICAL THERAPY EVALUATION 2012 [facility] PLETHYSMOGRAPHY, TOTAL BODY; WITH INTERPRETATION AND REPORT 2001 DoD VISUAL FIELD EXAM,UNILAT/BI,INTER P&REP;EXT EXM(EG,GOLDMANN VIS FLD,AT LEAST 3 ISOP PLOT&STAT DET W/IN MABEL 30DEG/QUANT,AUTO THRSH TERESITA,OCT G-1,32/42,HUMP VIS FLD ANAL FULL THRSH 30-2,24-2, OR 30/60-2) 2017 [facility] VISUAL FIELD EXAM,UNILAT/BI,INTER P&REP;EXT EXM(EG,GOLDMANN VIS FLD,AT LEAST 3 ISOP PLOT&STAT DET W/IN MABEL 30DEG/QUANT,AUTO THRSH TERESITA,OCT G-1,32/42,HUMP VIS FLD ANAL FULL THRSH 30-2,24-2, OR 30/60-2) 2016 [facility] PRESCRIPTION OF OPTICAL AND PHYSICAL CHARACTERISTICS OF AND FITTING OF CONTACT LENS, WITH MEDICAL SUPERVISION OF ADAPTATION; CORNEAL LENS, BOTH EYES, EXCEPT FOR APHAKIA 2016 DoD CHIROPRACTIC MANIPULATIVE TREATMENT (CMT); SPINAL, 3-4 REGIONS 2005 DoD EXCISION, OTHER BENIGN LESION INCLUDING MARGINS, EXCEPT SKIN TAG (UNLESS LISTED ELSEWHERE), FACE, EARS, EYELIDS, NOSE, LIPS, MUCOUS MEMBRANE; EXCISED DIAMETER 3.1 TO 4.0 CM 2005 [facility] CHIROPRACTIC MANIPULATIVE TREATMENT (CMT); SPINAL, 3-4 REGIONS 2005 DoD PRESCRIPTION OF OPTICAL AND PHYSICAL CHARACTERISTICS OF AND FITTING OF CONTACT LENS, WITH MEDICAL SUPERVISION OF ADAPTATION; CORNEAL LENS, BOTH EYES, EXCEPT FOR APHAKIA 2005 [facility] CHIROPRACTIC MANIPULATIVE TREATMENT (CMT); SPINAL, 3-4 REGIONS 2005 DoD CHIROPRACTIC MANIPULATIVE TREATMENT (CMT); SPINAL, 3-4 REGIONS 2005 [facility] SCANNING COMPUTERIZED OPHTHALMIC DIAGNOSTIC IMAGING, POSTERIOR SEGMENT, (EG, SCANNING LASER) WITH INTERPRETATION AND REPORT, UNILATERAL 2005 [facility] INJECTION, TRIAMCINOLONE ACETONIDE, NOT OTHERWISE SPECIFIED, 10 MG 2005 DoD CHIROPRACTIC MANIPULATIVE TREATMENT (CMT); SPINAL, 3-4 REGIONS 2005 [facility] CHIROPRACTIC MANIPULATIVE TREATMENT (CMT); SPINAL, 3-4 REGIONS 2005 [facility] OCCUPATIONAL THERAPY RE-EVALUATION 2005 DoD EXCISION, OTHER BENIGN LESION INCLUDING MARGINS, EXCEPT SKIN TAG (UNLESS LISTED ELSEWHERE), FACE, EARS, EYELIDS, NOSE, LIPS, MUCOUS MEMBRANE; EXCISED DIAMETER 3.1 TO 4.0 CM 2005 DoD CHIROPRACTIC MANIPULATIVE TREATMENT (CMT); SPINAL, 3-4 REGIONS 2005 DoD EXERCISE EQUIPMENT 2005 DoD CHIROPRACTIC MANIPULATIVE TREATMENT (CMT); SPINAL, 1-2 REGIONS 2004 DoD CHIROPRACTIC MANIPULATIVE TREATMENT (CMT); SPINAL, 1-2 REGIONS 2004 [facility] OPHTHALMOLOGICAL SERVICES: MEDICAL EXAMINATION AND EVALUATION, WITH INITIATION OR CONTINUATION OF DIAGNOSTIC AND TREATMENT PROGRAM; INTERMEDIATE, ESTABLISHED PATIENT 2004 [facility] INJECTION, INTRALESIONAL; UP TO AND INCLUDING 7 LESIONS 2004 DoD CHIROPRACTIC MANIPULATIVE TREATMENT (CMT); SPINAL, 1-2 REGIONS 2004 [facility] ACNE SURGERY (EG, MARSUPIALIZATION, OPENING OR REMOVAL OF MULTIPLE MILIA, COMEDONES, CYSTS, PUSTULES) 2004 DoD CHIROPRACTIC MANIPULATIVE TREATMENT (CMT); SPINAL, 3-4 REGIONS 2004 DoD SERIAL TONOMETRY (SEP PROC) WITH MULT MULU OF INTRAOCULAR PRESSURE OVER EXTENDED TIME PERIOD W/ INTERP & REPORT, SAME DAY (EG, DIURNAL CURVE OR MEDICAL TX OF ACUTE ELEVATION OF INTRAOCULAR PRESSURE) 2004 DoD CHIROPRACTIC MANIPULATIVE TREATMENT (CMT); SPINAL, 3-4 REGIONS 2004 DoD SERIAL TONOMETRY (SEP PROC) WITH MULT MLUU OF INTRAOCULAR PRESSURE OVER EXTENDED TIME PERIOD W/ INTERP & REPORT, SAME DAY (EG, DIURNAL CURVE OR MEDICAL TX OF ACUTE ELEVATION OF INTRAOCULAR PRESSURE) 2004 [facility] OPHTHALMIC ULTRASOUND, ECHOGRAPHY, DIAGNOSTIC; CORNEAL PACHYMETRY, UNILATERAL OR BILATERAL (DETERMINATION OF CORNEAL THICKNESS) 2004 DoD CHIROPRACTIC MANIPULATIVE TREATMENT (CMT); SPINAL, 3-4 REGIONS 2004 DoD CHIROPRACTIC MANIPULATIVE TREATMENT (CMT); SPINAL, 3-4 REGIONS 2004 DoD CHIROPRACTIC MANIPULATIVE TREATMENT (CMT); SPINAL, 3-4 REGIONS 2004 DoD CHIROPRACTIC MANIPULATIVE TREATMENT (CMT); SPINAL, 1-2 REGIONS 2004 DoD CHIROPRACTIC MANIPULATIVE TREATMENT (CMT); SPINAL, 1-2 REGIONS 2004 DoD CHIROPRACTIC MANIPULATIVE TREATMENT (CMT); SPINAL, 1-2 REGIONS 2004 DoD HEALTH AND BEHAVIOR INTERVENTION, EACH 15 MINUTES, DHAA-OR-[id number]; GROUP (2 OR MORE PATIENTS) 2004 DoD CHIROPRACTIC MANIPULATIVE TREATMENT (CMT); SPINAL, 1-2 REGIONS 2004 DoD CHIROPRACTIC MANIPULATIVE TREATMENT (CMT); SPINAL, 1-2 REGIONS 2004 DoD CHIROPRACTIC MANIPULATIVE TREATMENT (CMT); SPINAL, 1-2 REGIONS 2004 DoD CHIROPRACTIC MANIPULATIVE TREATMENT (CMT); SPINAL, 1-2 REGIONS 2004 DoD CHIROPRACTIC MANIPULATIVE TREATMENT (CMT); SPINAL, 1-2 REGIONS 2004 DoD PHYSICAL THERAPY RE-EVALUATION 2003 DoD APPLICATION OF A MODALITY TO 1 OR MORE AREAS; TRACTION, MECHANICAL 2003 DoD APPLICATION OF A MODALITY TO 1 OR MORE AREAS; TRACTION, MECHANICAL 2003 DoD APPLICATION OF A MODALITY TO 1 OR MORE AREAS; TRACTION, MECHANICAL 2003 DoD PHYS/OTH QUALIFIED HEALTH RETREAD MOLD OPERATOR QUALIFIED,EDUCATION, TRAIN,LICENSURE/REGU LATION (WHEN APPLICABLE) EDUC SER RENDERED TO PATS IN A GRP SETTING (EG,,OBESITY ,OR DIABETIC INSTRUCT) 2003 DoD APPLICATION OF A MODALITY TO 1 OR MORE AREAS; TRACTION, MECHANICAL 2003 DoD APPLICATION OF A MODALITY TO 1 OR MORE AREAS; HOT OR COLD PACKS 2003 DoD APPLICATION OF A MODALITY TO 1 OR MORE AREAS; TRACTION, MECHANICAL 2003 DoD APPLICATION OF A MODALITY TO 1 OR MORE AREAS; TRACTION, MECHANICAL 2003 DoD THERAPEUTIC PROCEDURE, 1 OR MORE AREAS, EACH 15 MINUTES; THERAPEUTIC EXERCISES TO DEVELOP STRENGTH AND ENDURANCE, RANGE OF MOTION AND FLEXIBILITY 2003 DoD APPLICATION OF A MODALITY TO 1 OR MORE AREAS; ULTRASOUND, EACH 15 MINUTES 2003 DoD APPLICATION OF A MODALITY TO 1 OR MORE AREAS; ULTRASOUND, EACH 15 MINUTES 2003 DoD APPLICATION OF A MODALITY TO 1 OR MORE AREAS; IONTOPHORESIS, EACH 15 MINUTES 2003 DoD APPLICATION OF A MODALITY TO 1 OR MORE AREAS; ULTRASOUND, EACH 15 MINUTES 2003 [facility] APPLICATION OF A MODALITY TO 1 OR MORE AREAS; HOT OR COLD PACKS 2003 [facility] THERAPEUTIC PROCEDURE, 1 OR MORE AREAS, EACH 15 MINUTES; THERAPEUTIC EXERCISES TO DEVELOP STRENGTH AND ENDURANCE, RANGE OF MOTION AND FLEXIBILITY 2003 [facility] EDUCATIONAL SUPPLIES, SUCH BOOKS, TAPES, AND PAMPHLETS, FOR THE PATIENT'S EDUCATION AT COST TO PHYSICIAN OR OTHER QUALIFIED HEALTH RETREAD MOLD OPERATOR 2003 [facility] RADIOLOGIC EXAMINATION, SHOULDER; COMPLETE, MINIMUM OF 2 VIEWS 2003 [facility] VISUAL FIELD EXAMINATION, UNI OR BILATERAL, WITH MEDICAL DIAGNOSTIC EVAL; INTERMEDIATE EXAM (EG, AT LEAST 2 ISOPTERS ON GOLDMANN PERIMETER, OR SEMIQUANT, AUTO SUPRATHRESHOLD SCREEN PROGRAM, MOREL 2003 [facility] FUNDUS PHOTOGRAPHY WITH INTERPRETATION AND REPORT 2003 [facility] PSYCHOLOGICAL TESTING (INCLUDES PSYCHODIAGNOSTIC ASSESSMENT OF PERSONALITY PSYCHOPATHOLOGY, EMOTIONALITY, INTELLECTUAL ABILITIES, EG, WAIS-R, RORSCHACH, MMPI) WITH INTERPRETATION AND REPORT, PER HOUR 2003 [facility] PREPARATION OF REPORT OF PATIENT'S PSYCHIATRIC STATUS, HISTORY, TREATMENT, OR PROGRESS (OTHER THAN FOR LEGAL OR CONSULTATIVE PURPOSES) FOR OTHER INDIVIDUALS, AGENCIES, OR INSURANCE CARRIERS 2003 [facility] OCCUPATIONAL THERAPY RE-EVALUATION 2003 [facility] OCCUPATIONAL THERAPY RE-EVALUATION 2003 [facility] OCCUPATIONAL THERAPY EVALUATION 2003 [facility] DETERMINATION OF REFRACTIVE STATE 2003 [facility] EXCISION OF GANGLION, WRIST (DORSAL OR VOLAR); PRIMARY 2003 [facility] PSYCHIATRIC DIAGNOSTIC INTERVIEW EXAMINATION 2002 DoD REPAIR, INTERMEDIATE, WOUNDS OF SCALP, AXILLAE, TRUNK AND/OR EXTREMITIES (EXCLUDING HANDS AND FEET); 2.5 CM OR LESS 2002 [facility] INJECTION, METHYLPREDNISOLONE ACETATE, 40 MG 2002 [facility] BIOPSY OF SKIN, SUBCUTANEOUS TISSUE AND/OR MUCOUS MEMBRANE (INCLUDING SIMPLE CLOSURE), UNLESS OTHERWISE LISTED; SINGLE LESION 2002 [facility] PUNCTURE ASPIRATION OF ABSCESS, HEMATOMA, BULLA, OR CYST 2002 [facility] PSYCHOLOGICAL TESTING (INCLUDES PSYCHODIAGNOSTIC ASSESSMENT OF PERSONALITY PSYCHOPATHOLOGY, EMOTIONALITY, INTELLECTUAL ABILITIES, EG, WAIS-R, RORSCHACH, MMPI) WITH INTERPRETATION AND REPORT, PER HOUR 2002 [facility] INDIVIDUAL PSYCHOTHERAPY, INSIGHT ORIENTED, BEHAVIOR MODIFYING AND/OR SUPPORTIVE, IN AN OFFICE OR OUTPATIENT FACILITY, APPROXIMATELY 20 TO 30 MINUTES [id number] WITH THE PATIENT 2002 [facility] ANTHRAX VACCINE, FOR SUBCUTANEOUS OR INTRAMUSCULAR USE 2002 [facility] PATIENT EDUCATION, NOT OTHERWISE CLASSIFIED, NON-PHYSICIAN PROVIDER, INDIVIDUAL, PER SESSION 2002 [facility] PSYCHOLOGICAL TESTING (INCLUDES PSYCHODIAGNOSTIC ASSESSMENT OF PERSONALITY PSYCHOPATHOLOGY, EMOTIONALITY, INTELLECTUAL ABILITIES, EG, WAIS-R, RORSCHACH, MMPI) WITH INTERPRETATION AND REPORT, PER HOUR 2002 [facility] PSYCHIATRIC EVALUATION OF HOSPITAL RECORDS, OTHER PSYCHIATRIC REPORTS, PSYCHOMETRIC AND/OR PROJECTIVE TESTS, AND OTHER ACCUMULATED DATA FOR MEDICALDIAGNOSTIC PURPOSES 2002 [facility] PSYCHIATRIC DIAGNOSTIC INTERVIEW EXAMINATION 2002 [facility] PSYCHOLOGICAL TESTING (INCLUDES PSYCHODIAGNOSTIC ASSESSMENT OF PERSONALITY PSYCHOPATHOLOGY, EMOTIONALITY, INTELLECTUAL ABILITIES, EG, WAIS-R, RORSCHACH, MMPI) WITH INTERPRETATION AND REPORT, PER HOUR 2002 [facility] PSYCHIATRIC DIAGNOSTIC INTERVIEW EXAMINATION 2001 [facility] VISUAL FIELD EXAMINATION, UNI OR BILATERAL, WITH MEDICAL DIAGNOSTIC EVAL; LIMITED EXAM (EG, TANGENT SCREEN, AUTOPLOT, ARC PERIMETER, OR SINGLE STIMULUS LEVEL AUTO TEST, EG OCTOPUS 3 OR 7 EQUIVALENT) 2001 [facility] INJECTION, CEFTRIAXONE SODIUM, PER 250 MG 2001 [facility] VISUAL FIELD EXAMINATION, UNI OR BILATERAL, WITH MEDICAL DIAGNOSTIC EVAL; LIMITED EXAM (EG, TANGENT SCREEN, AUTOPLOT, ARC PERIMETER, OR SINGLE STIMULUS LEVEL AUTO TEST, EG OCTOPUS 3 OR 7 EQUIVALENT) 2001 [facility] DETERMINATION OF REFRACTIVE STATE 2001 [facility] EPIDIDYMECTOMY 1992 [facility] PRESCRIPTION OF OPTICAL AND PHYSICAL CHARACTERISTICS OF AND FITTING OF CONTACT LENS, WITH MEDICAL SUPERVISION OF ADAPTATION; CORNEAL LENS, BOTH EYES, EXCEPT FOR APHAKIA 2009 [facility] OPHTHALMOLOGICAL SERVICES: MEDICAL EXAMINATION AND EVALUATION, WITH INITIATION OR CONTINUATION OF DIAGNOSTIC AND TREATMENT PROGRAM; INTERMEDIATE, ESTABLISHED PATIENT 2009 [facility] VISUAL FIELD EXAM,UNILAT/BI,INTER P&REP;EXT EXM(EG,GOLDMANN VIS FLD,AT LEAST 3 ISOP PLOT&STAT DET W/IN MABEL 30DEG/QUANT,AUTO THRSH TERESITA,OCT G-1,32/42,HUMP VIS FLD ANAL FULL THRSH 30-2,24-2, OR 30/60-2) 2008 [facility] MANUAL THERAPY TECHNIQUES (EG, MOBILIZATION/ MANIPULATION, MANUAL LYMPHATIC DRAINAGE, MANUAL TRACTION), 1 OR MORE REGIONS, EACH 15 MINUTES 2008 [facility] POLYSOMNOGRAPHY;AGE 8 YEARS/OLDER,SLEEP STAGING W 4/MORE ADDITIONAL PARAMETERS OF SLEEP,W INITIATION OF CONTINUOUS POSITIVE AIRWAY PRESSURE THERAPY/BILEVEL VENTILATION,ATTENDED BY A TECHNOLOGIST 2008 [facility] POLYSOMNOGRAPHY;AGE 8 YEARS/OLDER,SLEEP STAGING W 4/MORE ADDITIONAL PARAMETERS OF SLEEP,W INITIATION OF CONTINUOUS POSITIVE AIRWAY PRESSURE THERAPY/BILEVEL VENTILATION,ATTENDED BY A TECHNOLOGIST 2008 [facility] ELECTROCARDIOGRAM, ROUTINE ECG WITH AT LEAST 12 LEADS; INTERPRETATION AND REPORT ONLY 2008 [facility] ELECTROCARDIOGRAM, ROUTINE ECG WITH AT LEAST 12 LEADS; INTERPRETATION AND REPORT ONLY 2008 [facility] UNLISTED SPECIAL SERVICE, PROCEDURE OR REPORT 2008 [facility] ELECTROCARDIOGRAM, ROUTINE ECG WITH AT LEAST 12 LEADS; TRACING ONLY, WITHOUT INTERPRETATION AND REPORT 2008 [facility] CHEST X-RAY RESULTS DOCUMENTED AND REVIEWED (CAP) 2008 [facility] OPHTHALMOLOGICAL SERVICES: MEDICAL EXAMINATION AND EVALUATION, WITH INITIATION OR CONTINUATION OF DIAGNOSTIC AND TREATMENT PROGRAM; INTERMEDIATE, ESTABLISHED PATIENT 2008 [facility] DISEASE MANAGEMENT PROGRAM, FOLLOW-UP/REASSESSME NT 2008 [facility] FLUOROSCOPIC GUIDANCE & LOCALIZATION OF NEEDLE OR CATHETER TIP FOR SPINE/PARASPINOUS DIAG/THERAPEUTIC INJECTION PROCEDURES (EPIDURAL/SUBARACHNO ID) (LIST SEPARATELY IN ADD TO CODE FOR PRIMARY PROC) 2008 [facility] DESTRUCTION (EG,LASER SURGERY,ELECTROSURGE RY,CRYOSURGERY,CHEMO SURGERY,SURGICAL CURETTEMENT),OF BENIGN LESIONS OTHER THAN SKIN TAGS OR CUTANEOUS VASCULAR PROLIFERATIVE LESIONS; 15 OR MORE LESIONS 2008 [facility] THERAPEUTIC PROCEDURE, 1 OR MORE AREAS, EACH 15 MINUTES; THERAPEUTIC EXERCISES TO DEVELOP STRENGTH AND ENDURANCE, RANGE OF MOTION AND FLEXIBILITY 2008 [facility] APPLICATION OF A MODALITY TO 1 OR MORE AREAS; HOT OR COLD PACKS 2008 DoD APPLICATION OF A MODALITY TO 1 OR MORE AREAS; HOT OR COLD PACKS 2008 DoD APPLICATION OF A MODALITY TO 1 OR MORE AREAS; HOT OR COLD PACKS 2007 [facility] APPLICATION OF A MODALITY TO 1 OR MORE AREAS; TRACTION, MECHANICAL 2007 [facility] PHYSICAL THERAPY EVALUATION 2007 [facility] VISUAL FIELD EXAM,UNILAT/BI,INTER P&REP;EXT EXM(EG,GOLDMANN VIS FLD,AT LEAST 3 ISOP PLOT&STAT DET W/IN MABEL 30DEG/QUANT,AUTO THRSH TERESITA,OCT G-1,32/42,HUMP VIS FLD ANAL FULL THRSH 30-2,24-2, OR 3060-2) 2007 DoD DESTRUCTION (EG, LASER SURGERY, ELECTROSURGERY, CRYOSURGERY, CHEMOSURGERY, SURGICAL CURETTEMENT), OF BENIGN LESIONS OTHER THAN SKIN TAGS OR CUTANEOUS VASCULAR PROLIFERATIVE LESIONS; UP TO 14 LESIONS 2007 DoD BIOPSY OF SKIN, SUBCUTANEOUS TISSUE AND/OR MUCOUS MEMBRANE (INCLUDING SIMPLE CLOSURE), UNLESS OTHERWISE LISTED; SINGLE LESION 2007 [facility]D OPHTHALMOLOGICAL SERVICES: MEDICAL EXAMINATION AND EVALUATION, WITH INITIATION OR CONTINUATION OF DIAGNOSTIC AND TREATMENT PROGRAM; INTERMEDIATE, ESTABLISHED PATIENT 2007 DoD SCANNING COMPUTERIZED OPHTHALMIC DIAGNOSTIC IMAGING, POSTERIOR SEGMENT, (EG, SCANNING LASER) WITH INTERPRETATION AND REPORT, UNILATERAL 2006 DoD EXCISION OF THROMBOSED HEMORRHOID, EXTERNAL 2006 [facility] FUNDUS PHOTOGRAPHY WITH INTERPRETATION AND REPORT 2006 [facility] VISUAL FIELD EXAM,UNILAT/BI,INTER P&REP;EXT EXM(EG,GOLDMANN VIS FLD,AT LEAST 3 ISOP PLOT&STAT DET W/IN MABEL 30DEG/QUANT,AUTO THRSH TERESITA,OCT G-1,32/42,HUMP VIS FLD ANAL FULL THRSH 30-2,24-2, OR 3060-2) 2006 DoD NONINVASIVE EAR OR PULSE OXIMETRY FOR OXYGEN SATURATION; SINGLE DETERMINATION 2005 DoD Modalities Traction Modalities Traction 49910 2003 JEAN BRIGGS DoD Modalities Traction Modalities Traction 17288 2003 JESU SERRA Modalities Heat Hot Packs Modalities Heat Hot Packs 52463 2003 JESU SERRA Modalities Cryotherapy Cold Packs Modalities Cryotherapy Cold Packs 18924 2003 MARK PHILIP Modalities Iontophoresis Modalities Iontophoresis 92116 2003 MARK [place] Modalities Heat Hot Packs Modalities Heat Hot Packs 55187 2003 MARK [place] Modalities Traction Modalities Traction 35899 2003 MARK [place] Modalities Iontophoresis Modalities Iontophoresis 14813 2003 JESU SERRA Modalities Ultrasound Modalities Ultrasound 66031 2003 ALEJANDROMAURYJESU [facility] Modalities Cryotherapy Cold Packs Modalities Cryotherapy Cold [place] 05429 2003 ALEJANDROMAURYGONZÁLEZJESU Jennifer [facility] Modalities Ultrasound Modalities Ultrasound 98795 2003 MARYSEGONZÁLEZJESU Jennifer [facility] Modalities Cryotherapy [place] Modalities Cryotherapy [place] 79319 2003 ALEJANDROMAURYJESU [facility] Modalities Iontophoresis Modalities Iontophoresis 22662 2003 ALEJANDROMAURYJSEU [facility] Modalities Ultrasound Modalities Ultrasound 21648 2003 CEDRICK MARK [facility] Modalities Iontophoresis Modalities Iontophoresis 19766 2003 CEDRICKMARK [facility] Modalities Cryotherapy [place] Modalities Cryotherapy [place] 70972 2003 CEDRICKMARK [facility] Modalities Iontophoresis Modalities Iontophoresis 34176 2003 MICHAEL ALTAMIRANO [facility] Modalities Ultrasound Modalities Ultrasound 46404 2003 MICHAEL ALTAMIRANO [facility] Modalities Cryotherapy Cold [place]acks Modalities Cryotherapy [place] 05819 2003 MICHAEL ALTAMIRANO [facility] Ophthalmological Prior Patient Start Intermediate Level Care Ophthalmological Prior Patient Start Intermediate Level Care 62273 2008 MARGA GUY [facility] Telephone calls by a registered nurse to a disease management program member for monitoring purposes; per month 2008 GUIDO CELIS [facility] Disease management program, follow-up/brynn e ment 2008 GUIDO CELIS [facility] Nursing a e ment/evaluation 2008 GUIDO CELIS [facility] Patient Training And Self-Care Skills Patient Training And Self-Care Skills 14998 2008 GUIDO CELIS [facility] Patient Counseling Medical Management Individual Patient Patient Counseling Medical Management Individual Patient [id number] 2008 GUIDO CELIS [facility] Fluoroscopic Guidance/Localiz Of Needle For Spinal Injection 2008 COLTON BABB [facility] Intravenous Catheter Placement Intravenous Catheter Placement 79833 2008 COLTON BABB [facility] Corticosteroid Inj Interlaminar Cervical C7 - T1 2008 COLTON BABB [facility] Destruction Of Benign Lesion By Any Method 15 Or More Lesion 2008 TRICHARJINDER ROBLEDOY Skip Werner Destruct Of Benign Lesion By Any Method Second Through 14 2008 TRICKETTHARJINDERY Skip Werner Destruction Of Benign Lesion By Any Method One Lesion 2008 TRICKETTHARJINDERY V [place] Physical Therapy: ___ Se ion Segments, 15 Minutes Each Physical Therapy: ___ Session Segments, 15 Minutes Each 17163 2008 JORGE OLMOS Physical Therapy Service Re-Evaluation Physical Therapy Service Re-Evaluation 95274 2008 JORGE OLMOS Modalities Heat Hot Packs Modalities Heat Hot Packs 24212 2008 ESTEVEZRAZIAMY T [place] Traction Cervical Traction Cervical 92483 10/26 MAX ESTEVEZ T [place] Modalities Heat Hot Packs Modalities Heat Hot Packs 12431 2007 INASMITH GLASS R DoD Traction Cervical Traction Cervical 78858 10/12 INASMITH GLASS R Intermittent 30on/10off DoD Traction Cervical Traction Cervical 42825 10/10 [facility] Modalities Heat Hot Packs Modalities Heat Hot Packs 40414 2007 [facility] [facility] Physical Therapy Mobilization Joint Physical Therapy Mobilization Joint 28675 2007 ELÍAS BARAJAS Physical Therapy: ___ Se ion Segments, 15 Minutes Each Physical Therapy: ___ Session Segments, 15 Minutes Each 14664 2007 ELÍAS BARAJAS Physical Therapy Service Evaluation Physical Therapy Service Evaluation 09512 2007 ELÍAS BARAJAS Visual Benitez Test Extended Examination Visual Benitez Test Extended Examination 49784 2007 MARGA GUY Ophthalmological Prior Patient Start Intermediate Level Care Ophthalmological Prior Patient Start Intermediate Level Care 25580 2007 MARGA GUY Destruct Of Benign Lesion By Any Method Second Through 14 2007 DAMION KING Destruction Of Benign Lesion By Any Method One Lesion 2007 TRICDAMION ROBLEDO Biopsy Skin Biopsy Skin 69281 2007 BRADEN BANKS Ophthalmological Prior Patient Start Intermediate Level Care Ophthalmological Prior Patient Start Intermediate Level Care 27570 2007 DAVI RESENDIZ Ophthalmological New Patient Start Comprehensive Care Ophthalmological New Patient Start Comprehensive Care 16166 2006 YEISON YANEZ Fundoscopic Exam Extensive Initial Exam Fundoscopic Exam Extensive Initial Exam 40930 2006 YEISON YANEZ Scanning Computerized Ophthalmic Diagnostic Imaging 2006 YEISON YANEZ Anal Surgery Hemorrhoid Operation Excision Of External Thrombosed 2006 MARIA, MARGY T [place] Ophthalmological Prior Patient Start Intermediate Level Care Ophthalmological Prior Patient Start Intermediate Level Care 53596 2006 MATHEUS SIMMONS Fundus Photography Fundus Photography 56387 2006 MATHEUS SIMMONS Visual Benitez Test Extended Examination Visual Benitez Test Extended Examination 12152 2006 MATHEUS SIMMONS Chiropractic Manip Treatmt (CMT) Spinal Three To Four [facility] Chiropractic Manip Treatmt (CMT) Spinal [facility] [place] [facility] 32957 2005 RENATA ESTRELLA Excision Of Lesion Ears Benign 3.1 to 4cm 2005 MADAY STEWART Chiropractic Manip Treatmt (CMT) Spinal Three To Four Region Chiropractic Manip Treatmt (CMT) Spinal Three [place] [facility] 41944 2005 RENATA ESTRELLA Determination Of Refractive State Determination Of Refractive State 28820 2005 ELÍAS FARIA Prescription And Fitting Bilateral Corneal Lenses (Not For Aphakia) Prescription And Fitting Bilateral Corneal Lenses (Not For Aphakia) 82186 2005 ELÍAS FARIA Ophthalmological Prior Patient Start Intermediate Level Care Ophthalmological Prior Patient Start Intermediate Level Care 76232 2005 ELÍAS FARIA Chiropractic Manip Treatmt (CMT) Spinal Three To Four Region Chiropractic Manip Treatmt (CMT) Spinal Three To Four Region 60347 2005 RENATA ESTRELLA Chiropractic Manip Treatmt (CMT) Spinal Three To Four Region Chiropractic Manip Treatmt (CMT) Spinal Three To Four Region 09405 2005 RENATA ESTRELLA Scanning Computerized Ophthalmic Diagnostic Imaging 2005 ELÍAS FARIA Ophthalmological Prior Patient Start Intermediate Level Care Ophthalmological Prior Patient Start Intermediate Level Care 45024 2005 ELÍAS FARIA Visual Benitez Test Extended Examination Visual Benitez Test Extended Examination 46074 2005 ELÍAS FARIA Intralesional Injections - Up To Seven Intralesional Injections - Up To Seven 54375 2005 MADAY STEWART Chiropractic Manip Treatmt (CMT) Spinal Three To Four Region Chiropractic Manip Treatmt (CMT) Spinal Three To Four Region 64627 2005 RENATA ESTRELLA Chiropractic Manip Treatmt (CMT) Spinal Three To Four [facility] Chiropractic Manip Treatmt (CMT) Spinal Three To Four Region 32917 2005 RENATA ESTRELLA Occupational Therapy Re-Evaluation Occupational Therapy Re-Evaluation 26844 2005 JACE VENEGAS Excision Of Lesion Ears Benign 3.1 to 4cm 2005 MADAY STEWART Chiropractic Manip Treatmt (CMT) Spinal Three To Four Region Chiropractic Manip Treatmt (CMT) Spinal Three To Four Region 85588 2005 RENATA ESTRELLA Occupational Therapy Evaluation Occupational Therapy Evaluation 26448 2005 JACE VENEGAS isted Exercises For ROM Assisted Exercises For ROM 10989 2005 JACE VENEGAS Exercise equipment 2005 JACE VENEGAS Chiropractic Manip Treatmt (CMT) Spinal One To Two Regions Chiropractic Manip Treatmt (CMT) Spinal One To Two Regions 93004 2004 RENATA ESTRELLA Chiropractic Manip Treatmt (CMT) Spinal One To Two Regions Chiropractic Manip Treatmt (CMT) Spinal One To Two Regions 22887 2004 RENATA ESTRELLA Ophthalmological Prior Patient Start Intermediate Level Care Ophthalmological Prior Patient Start Intermediate Level Care 78978 2004 ELÍAS FARIA Intralesional Injections - Up To Seven Intralesional Injections - Up To Seven 30265 2004 MADAY STEWART Excision Of Lesion Ears Benign .6 to 1cm 2004 MADAY STEWART Injection, triamcinolone acetonide, not otherwise specified, 10 mg 2004 MADAY STEWART Excision Of Lesion Ears Benign Up to .5cm 2004 MADAY STEWART Chiropractic Manip Treatmt (CMT) Spinal One To Two Regions Chiropractic Manip Treatmt (CMT) Spinal One To Two Regions 31461 2004 RENATA ESTRELLA Acne Surgery Acne Surgery 04583 2004 MADAY STEWART [facility] [place] expressed. f/u apt for further tx required [facility] Chiropractic Manip Treatmt (CMT) Spinal Three To Four Region Chiropractic Manip Treatmt (CMT) Spinal Three To Four Region 50074 2004 RENATA ESTRELLA Tonometry Tonometry 22343 2004 ELÍAS FARIA Ophthalmological Prior Patient Start Intermediate Level Care Ophthalmological Prior Patient Start Intermediate Level Care 27890 2004 ELÍAS FARIA Visual Benitez Test Extended Examination Visual Benitez Test Extended Examination 91283 2004 ELÍAS FARIA Anterior Chamber Angles (Gonioscopy) Anterior Chamber Angles (Gonioscopy) 39443 2004 ELÍAS FARIA Chiropractic Manip Treatmt (CMT) Spinal Three To Four Region Chiropractic Manip Treatmt (CMT) Spinal Three To Four Region 97310 2004 RENATA ESTRELLA Prescription And Fitting Bilateral Corneal Lenses (Not For Aphakia) Prescription And Fitting Bilateral Corneal Lenses (Not For Aphakia) 38987 2004 ELÍAS FARIA Visual Benitez Test Extended Examination Visual Benitez Test Extended Examination 27445 2004 ELÍAS FARIA Tonometry Tonometry 70835 2004 ELÍAS FARIA Ophthalmological Prior Patient Start Intermediate Level Care Ophthalmological Prior Patient Start Intermediate Level Care 17453 2004 ELÍAS FARIA Determination Of Refractive State Determination Of Refractive State 54434 2004 ELÍAS FARIA Ophthalmological Prior Patient Start Comprehensive Care Ophthalmological Prior Patient Start Comprehensive Care 38903 2004 ELÍAS FARIA Determination Of Refractive State Determination Of Refractive State 10097 2004 ELÍAS FARIA Scanning Computerized Ophthalmic Diagnostic Imaging 2004 ELÍAS FARIA [facility] Corneal Pachymetry, Bilateral With Interpret And Report Corneal Pachymetry, Bilateral With Interpret And Report 03604 2004 LEÍAS FARIA [facility] Chiropractic Manip Treatmt (CMT) Spinal Three To Four Region Chiropractic Manip Treatmt (CMT) Spinal Three To Four Region 66379 2004 RENATA ESTRELLA [facility] Chiropractic Manip Treatmt (CMT) [facility] Chiropractic Manip Treatmt (CMT) [facility] [id number] 2004 RENATA ESTRELLA [facility] Chiropractic Manip Treatmt (CMT) [facility] Chiropractic Manip Treatmt (CMT) [facility] 60369 2004 RENATA ESTRELLA [facility] Chiropractic Manip Treatmt (CMT) Spinal [facility] Two [facility]ip Treat[facility] (CMT) [facility] 82313 2004 RENATA ESTRELLA Chiropractic Manip Treatmt (CMT) Spinal [facility]rop[facility] Manip Treatmt (CMT) [facility] 33724 2004 RENATA ESTRELLA [facility] Chiropractic Manip Treatmt (CMT) [facility]rop[facility]ic Manip Treatmt (CMT) [facility] 71346 2004 RENATA ESTRELLA [facility] Health And Behav Intervention, Each Additional 15 Min Grp (2 Or More) Health And Behav Intervention, Each Additional 15 Min Grp (2 Or More) 00469 2004 GIA MENDOZA [facility] Chiropractic Manip Treatmt (CMT) [facility]ip Treat[facility] (CMT) [facility] 32740 2004 RENATA ESTRELLA [facility] Chiropractic Manip Treatmt (CMT) [facility]inal [facility] Chirop[facility]ic Manip Treatmt (CMT) Sp[facility] 92091 2004 RENATA ESTRELLA [facility] Chiropractic Manip Treatmt (CMT) [facility]rop[facility] Manip Treat[facility] (CMT) [facility] 28189 2004 RENATA ESTRELLA Chiropractic Manip Treatmt (CMT) [facility]rop[facility] Manip Treatmt (CMT) [facility] 15123 2004 RENATA ESTRELLA Chiropractic Manip Treatmt (CMT) [facility]rop[facility] Manip Treatmt (CMT) Spinal [facility] 22475 2004 RENATA ESTRELLA Physical Therapy Service Re-Evaluation Physical Therapy Service Re-Evaluation 82668 2003 HOMA POP Physician Supervised Group Educational Services 2003 GIA MENDOZA Psychiatric Diagnostic Evaluation Review of Records and Reports Psychiatric Diagnostic Evaluation Review of Records and Reports 06595 2003 GIA MENDOZA Modalities Heat Hot Packs Modalities Heat Hot Packs 39331 2003 JEAN BRIGGS Modalities Traction Modalities Traction 29044 2003 JEAN BRIGGS Modalities Heat Hot Packs Modalities Heat Hot Packs 81132 2003 JEAN BRIGGS [facility] Visual Benitez Test Extended Examination Visual Benitez Test Extended Examination 89461 2017 HUSSEIN LOCKHART Corneal Pachymetry Both Eyes Corneal Pachymetry Both Eyes 10341 2017 HUSSEIN LOCKHART Visual Benitez Test Extended Examination Visual Benitez Test Extended Examination 40674 2016 HUSSEIN LOCKHART Prescription And Fitting Bilateral Corneal Lenses (Not For Aphakia) Prescription And Fitting Bilateral Corneal Lenses (Not For Aphakia) 75162 2016 HUSSEIN LOCKHART Prescription And Fitting Bilateral Corneal Lenses (Not For Aphakia) Prescription And Fitting Bilateral Corneal Lenses (Not For Aphakia) 08499 2016 ORIANA LANDRY Spectacles Services Fitting Bifocal Except For Aphakia Spectacles Services Fitting Bifocal Except For Aphakia 64441 2016 ORIANA LANDRY Determination Of Refractive State Determination Of Refractive State 69114 2016 ORIANA LANDRY Scanning Computerized Ophthalmic Diagnostic Imaging Optic Nerve Scanning Computerized Ophthalmic Diagnostic Imaging Optic Nerve 01110 2016 ORIANA LANDRY Visual Benitez Test Intermediate Examination Visual Benitez Test Intermediate Examination 67769 2016 ORIANA LANDRY [facility] Ophthalmological New Patient Start Comprehensive Care Ophthalmological New Patient Start Comprehensive Care 65101 2016 ORIANA LANDRY [facility] Physical Therapy Service Re-Evaluation Physical Therapy Service Re-Evaluation 91798 2013 YEYO PARR [facility] Diagnostic Cystoscopy Diagnostic Cystoscopy 55666 2013 BILL RODRIGUEZ [facility] Physical Therapy Service Re-Evaluation Physical Therapy Service Re-Evaluation 67898 2012 YEYO PARR [facility] Physical Medicine - Group Physical Therapy Se ion Physical Medicine - Group Physical Therapy Session 08245 2012 ISABEL JUSTICE [facility] Aquatic Exercises Aquatic Exercises 37341 08/20 ISABEL JUSTICE [facility] Physical Medicine - Group Physical Therapy Se ion Physical Medicine - Group Physical Therapy Session 26547 2012 ISABEL JUSTICE [facility] Aquatic Exercises Aquatic Exercises 57866 08/19 ISABEL JUSTICE [facility] Physical Medicine - Group Physical Therapy Se ion Physical Medicine - Group Physical Therapy Session 89324 2012 ISABEL JUSTICE [facility] Aquatic Exercises Aquatic Exercises 86901 08/17 ISABEL JUSTICE [facility] Physical Medicine - Group Physical Therapy Se ion Physical Medicine - Group Physical Therapy Session 83406 2012 ISABEL JUSTICE [facility] Aquatic Exercises Aquatic Exercises 04490 08/13 ISABEL JUSTICE [facility] Physical Medicine - Group Physical Therapy Se ion Physical Medicine - Group Physical Therapy Session 11284 2012 JD GAMBOA [facility] Aquatic Exercises Aquatic Exercises 83254 08/11 JD GAMBOA [facility] Physical Medicine - Group Physical Therapy Se ion Physical Medicine - Group Physical Therapy Session 06259 2012 ISABEL JUSTICE [facility] Aquatic Exercises Aquatic Exercises 96223 08/06 ISABEL JUSTICE [facility] Physical Medicine - Group Physical Therapy Se ion Physical Medicine - Group Physical Therapy Session 44538 2012 ISABEL JUSTICE [facility] Aquatic Exercises Aquatic Exercises 99954 08/05 ISABEL JUSTICE [facility] Physical Medicine - Group Physical Therapy Se ion Physical Medicine - Group Physical Therapy Session 22979 2012 ISABEL JUSTICE [facility] Aquatic Exercises Aquatic Exercises 51135 08/03 ISABEL JUSTICE [facility] Physical Medicine - Group Physical Therapy Se ion Physical Medicine - Group Physical Therapy Session 94651 2012 ISABEL JUSTICE [facility] Aquatic Exercises Aquatic Exercises 91082 07/30 ISABEL JUSTICE [facility] Physical Medicine - Group Physical Therapy Se ion Physical Medicine - Group Physical Therapy Session 18007 2012 JD GAMBOA [facility] Aquatic Exercises Aquatic Exercises 69020 07/28 JD GAMBOA [facility] Physical Medicine - Group Physical Therapy Se ion Physical Medicine - Group Physical Therapy Session 71944 2012 ISABEL JUSTICE [facility] Aquatic Exercises Aquatic Exercises 97279 07/23 ISABEL JUSTICE [facility] Aquatic Exercises Aquatic Exercises 50756 07/22 ISABEL JUSTICE [facility] Physical Medicine - Group Physical Therapy Se ion Physical Medicine - Group Physical Therapy Session 42698 2012 ISABEL JUSTICE [facility] Physical Medicine - Group Physical Therapy Se ion Physical Medicine - Group Physical Therapy Session 45262 2012 ISABEL JUSTICE [facility] Aquatic Exercises Aquatic Exercises 33897 07/20 ISABEL JUSTICE [facility] Physical Medicine - Group Physical Therapy Se ion Physical Medicine - Group Physical Therapy Session 12376 2012 ISABEL JUSTICE [facility] Aquatic Exercises Aquatic Exercises 29691 07/16 ISABEL JUSTICE [facility] Physical Therapy Service Re-Evaluation Physical Therapy Service Re-Evaluation 82193 2012 YEYO PARR [facility] Physical Medicine - Group Physical Therapy Se ion Physical Medicine - Group Physical Therapy Session 88318 2012 ISABEL JUSTICE [facility] Aquatic Exercises Aquatic Exercises 08616 07/14 ISABEL JUSTICE [facility] Physical Medicine - Group Physical Therapy Se ion Physical Medicine - Group Physical Therapy Session 22297 2012 ISABEL JUSTICE [facility] Aquatic Exercises Aquatic Exercises 36475 07/12 ISABEL JUSTICE [facility] Physical Medicine - Group Physical Therapy Se ion Physical Medicine - Group Physical Therapy Session 18279 2012 ISABEL JUSTICE [facility] Aquatic Exercises Aquatic Exercises 39964 07/01 ISABEL JUSTICE [facility] Physical Medicine - Group Physical Therapy Se ion Physical Medicine - Group Physical Therapy Session 32648 2012 ISABEL JUSTICE [facility] Aquatic Exercises Aquatic Exercises 90591 06/28 ISABEL JUSTICE [facility] Physical Medicine - Group Physical Therapy Se ion Physical Medicine - Group Physical Therapy Session 97177 2012 ISABEL JUSTICE [facility] Aquatic Exercises Aquatic Exercises 44282 06/25 ISABEL JUSTICE [facility] Physical Medicine - Group Physical Therapy Se ion Physical Medicine - Group Physical Therapy Session 89539 2012 ISABEL JUSTICE [facility] Aquatic Exercises Aquatic Exercises 45340 06/23 ISABEL JUSTICE [facility] Physical Medicine - Group Physical Therapy Se ion Physical Medicine - Group Physical Therapy Session 41379 2012 ISABEL JUSTICE [facility] Aquatic Exercises Aquatic Exercises 48232 06/22 ISABEL JUSTICE [facility] Physical Medicine - Group Physical Therapy Se ion Physical Medicine - Group Physical Therapy Session 47068 2012 ISABEL JUSTICE [facility] Aquatic Exercises Aquatic Exercises 64660 06/17 ISABEL JUSTICE [facility] Physical Therapy Service Re-Evaluation Physical Therapy Service Re-Evaluation 45413 2012 YEYO PARR [facility] Physical Medicine - Group Physical Therapy Se ion Physical Medicine - Group Physical Therapy Session 79895 2012 JD GAMBOA [facility] Aquatic Exercises Aquatic Exercises 98653 05/27 JD GAMBOA [facility] Physical Medicine - Group Physical Therapy Se ion Physical Medicine - Group Physical Therapy Session 91672 2012 ISABEL JUSTICE [facility] Aquatic Exercises Aquatic Exercises 53395 05/25 ISABEL JUSTICE [facility] Physical Medicine - Group Physical Therapy Se ion Physical Medicine - Group Physical Therapy Session 35549 2012 ISABEL JUSTICE [facility] Aquatic Exercises Aquatic Exercises 26467 05/20 ISABEL JUSTICE [facility] Physical Therapy Service Re-Evaluation Physical Therapy Service Re-Evaluation 97978 2012 YEYO PARR [facility] Modalities Traction Modalities Traction 02625 2012 BIN FERNANDEZ [facility] Modalities Traction Modalities Traction 26475 2012 YUE VILLAR [facility] Modalities Traction Modalities Traction 77725 2012 RICCARDO GASPAR [facility] Traction Pelvic Traction Pelvic 80930 2012 YEYO PARR [facility] Physical Therapy Service Re-Evaluation Physical Therapy Service Re-Evaluation 69812 2012 YEYO PARR [facility] Physical Therapy Service Re-Evaluation Physical Therapy Service Re-Evaluation 09901 2012 YEYO PARR [facility] Osteopathic Manip Treatment (OMT) 1-2 Body [facility] Osteopathic Manip Treatment (OMT) 1-2 Body [facility] 45487 2012 YEYO PARR [facility] Physical Therapy Service Re-Evaluation Physical Therapy Service Re-Evaluation 45925 2012 YEYO PARR Physical Therapy Service Evaluation Physical Therapy Service Evaluation 62842 2012 YEYO PARR Prescription And Fitting Bilateral Corneal Lenses (Not For Aphakia) Prescription And Fitting Bilateral Corneal Lenses (Not For Aphakia) 70442 2009 MATHEUS SIMMONS Determination Of Refractive State Determination Of Refractive State 08621 2009 MATHEUS SIMMONS Ophthalmological Prior Patient Start Comprehensive Care Ophthalmological Prior Patient Start Comprehensive Care 91729 2009 MATHEUS SIMMONS Ophthalmological Prior Patient Start Intermediate Level Care Ophthalmological Prior Patient Start Intermediate Level Care 23482 2009 MARGA GUY Visual Benitez Test Extended Examination Visual Benitez Test Extended Examination 62437 2008 MARGA GUY Ophthalmological Prior Patient Start Intermediate Level Care Ophthalmological Prior Patient Start Intermediate Level Care 58413 2008 MARGA GUY Physical Therapy Mobilization Joint Physical Therapy Mobilization Joint 36008 2008 ELÍAS BARAJAS [facility] Physical Therapy: ___ Se ion Segments, 15 Minutes Each Physical Therapy: ___ Session Segments, 15 Minutes Each 94855 2008 ELÍAS BARAJAS Physical Therapy Service Evaluation Physical Therapy Service Evaluation 20398 2008 ELÍAS BARAJAS [facility] Polysomnography W/ 4+ Add'l Sleep Ric & Initiation Of CPAP/Bilev Vent 2008 RODRIGO DRUMMOND [facility] Polysomnography W/ 4+ Add'l Sleep Ric & Initiation Of CPAP/Bilev Vent 2008 NORBERT DUBOSE [facility] ECG Interpretation And Report Only ECG Interpretation And Report Only 31104 2008 BLANCA HERRERA [facility] ECG Interpretation And Report Only ECG Interpretation And Report Only 98002 2008 BLANCA HERRERA Partial Thromboplastin Time (PTT) Partial Thromboplastin Time (PTT) 53622 2008 YUE ANDERSON Prothrombin Time (PT) Prothrombin Time (PT) 30621 2008 YUE ANDERSON [facility] Blood Counts - CBC Blood Counts - CBC 19116 2008 YUE ANDERSON [facility] Basic Metabolic Panel With Total Calcium 2008 WENDIYUE Ross [facility] ECG Performance of Tracing Only ECG Performance of Tracing Only 61603 2008 YUE ANDERSON [facility] Chest X-Ray Results Documented And Reviewed Chest X-Ray Results Documented And Reviewed 3006F 2008 THIEN JOSSE Shahida [facility] Coagulation Studies: INR Coagulation Studies: INR 06259 2008 JOSSE NEUMANN [facility] Partial Thromboplastin Time (PTT) Partial Thromboplastin Time (PTT) 04698 2008 JOSSE NEUMANN [facility] Prothrombin Time (PT) Prothrombin Time (PT) 11636 2008 THIEN JOSSE [facility] Basic Metabolic Panel With Total Calcium 2008 THIEN JOSSE [facility] ECG Performance of Tracing Only ECG Performance of Tracing Only 15006 2008 THIENJOSSE [facility] Blood Counts - CBC Blood Counts - CBC 98115 2008 THIEN JOSSE [facility] Social History Combined list of available smoking, tobacco, and other social history from Department of Defense and Veterans Affairs facilities. Social History Type Response Date Comment Sourc e Male 04/28/2024 Ambulatory Pha rmacy Sexual Orientation Ambula tory Pharmacy Gender identity Ambulator y Pharmacy This section is an empty soc ial history section. DoD Assessment and Plan Combined list of future care activities from Department of Defense and Veterans Affairs facilities (e.g., assessment and plan notes, appointments, orders, and referrals). Additional future care activities may be listed in the Plan of Care section. Result Assessment and Plan Date Source Assessment and Plan No data available for this section 11/27/2024 Ambulatory Pharmacy Functional Status Combined list of recent functional and cognitive assessments recorded at [facility] Defense and [facility] ([facility] Functional [place] Measurement (FIM) Scale: 1 = Total Assistance (Subject = 0% +), 2 = Maximal Assistance (Subject = 25% +), 3 = Moderate Assistance (Subject = 50% +), 4 = Minimal Assistance (Subject = 75% +), 5 = Supervision, 6 = Modified [place] (Device), 7 = Complete [place] (Timely, Safely). Assessment Date/Time Source Assessment Type Assessment Skill Assessment Score Assessment Details No data available for this section
--- OUTSIDE RECORDS SUMMARY | 2024-11-27 13:00 | XMS_ITS | Encounter Summary ---
Author Organization [facility] Address [address] [place] [address] Care Team Providers Care Cmm Inspector Name Role Phone Marcelo Taylor MD Primary Care Provider [phone] Encounter Details Date Type Department Care Team (Late st Contact Info) Description 12/05/2023 Lab Requisition [facility] [address] [place] [id number] Aj Watters MD [facility] DERMAT[facility] [address] [place] [phone] Neoplasm of uncertain behavior of skin Social History Tobacco Use Types Packs/Day Years Used Date Smoking Tobacco: Former Cigarettes Q uit: 10/13/2010 Smokeless Tobacco: Never Alcohol Use Standard Drinks/Week Comments Yes 2.5 (1 standard drink = 0.6 oz p ure alcohol) Sex and Gender Information Value Date Recorded Sex Assigned at Not on file Gender Identity Not on file Sexual Orientation Not on file documented as of this encounter Plan of Treatment Not on file documented as of this encounter Procedures Procedure Name Priority Date/Time Associated Diagnosis Comments DERMATOPATHOLOGY Routine 12/05/2023 3:33 AM [facility] Neoplasm of uncertain behavior of skin documented in this encounter Results * DERMATOPATHOLOGY (12/05/2023 3:33 AM [facility]) Case Report Dermatopathology Report Case: [id number] Authorizing Provider: Aj Watters MD Collected: 12/05/2023 03:33 AM Ordering Location: [facility] Received: 12/08/2023 01:27 PM Pathologist: Kevin Locke MD Specimens: A) - Skin, right forehead B) - Skin, left lateral eyebrow 11:47 AM [facility] Final Diagnosis Specimen A. SKIN, right forehead: SEBACEOUS HYPERPLASIA (L73.8) CHRONIC PERIFOLLICULITIS (L73.8) Specimen B. SKIN, left lateral eyebrow: BENIGN VERRUCOUS KERATOSIS (L82.1) 11:47 AM [facility] Clinical History A: Sebaceous hyperplasia vs basal cell carcinoma B: Irritated seborrheic keratosis vs actinic keratosis 11:47 AM [facility] Gross Description Specimen A: Received [...] measuring 5x4x2 mm. Jar 0. 11:47 AM [facility] Microscopic Description Specimen A. SKIN, right forehead: There are prominent sebaceous gland lobules surrounding a dilated hair follicle. Sections show a perifollicular lymphohistiocytic infiltrate. Specimen B. SKIN, left lateral eyebrow: Sections show hyperkeratosis, papillomatosis, hypergranulosis, and acanthosis. These histological findings can be seen in a verruca vulgaris or a seborrheic keratosis. 11:47 AM [facility] Disclaimer An external and internal positive and negative controls are appropriate for the histochemical, immunohistochemical and immunofluorescence stain(s) in this case (if any), except where stated explicitly. The performance characteristics of the stain(s) cited in this report were developed and its performance characteristic determined by the Dermatopathology Laboratory at [facility], directed by Dr. Yuri Locke. These tests need not be, and therefore are not, approved by the [place] Food and Drug Administration. The tests are used for clinical purposes. Billing Codes Specimen Charges Stain Charges 45210 12361 1 1 4 11:47 AM [facility] Embedded Images 4 11:47 AM [facility] Pathology/Cytology TISSUE SPECIMEN FROM SKIN / Unknown 12/05/2023 3:33 AM [facility] 12/08/2023 1:27 PM [facility] Miscellaneous samples (specimen) TISSUE SPECIMEN FROM SKIN / Unknown 12/05/2023 3:33 AM [facility] 12/08/2023 1:27 PM [facility] Aj Watters MD LAB - PATHOLOGY/CYTO LOGY ORDERABLES DERMATOPATHOLOGY LABORATORY [facility] - Department of Dermatology [address], [address] [phone] documented in this encounter Visit Diagnoses Diagnosis Neoplasm of uncertain behavior of skin documented in this encounter Care Teams Cmm Inspector Relationship Specialty Start Date End Date Marcelo Taylor MD [address] [place] [address] PCP - General 01/21/11 documented as of this encounter
--- OUTSIDE RECORDS SUMMARY | 2024-11-27 13:00 | XMS_ITS | Referral Summary ---
Author Organization [facility] Address [address] [place] [address] Care Team Providers Care Spot Machine Operator Name Role Phone No, Physician Primary Care Provider [phone] Allergies No known active allergies Medications diclofenac DR (VOLTAREN) 75 mg EC tablet Take 1 tablet (75 mg total) by mouth 2 (two) times a day as needed for pain 3 Active gabapentin (NEURONTIN) 300 mg capsule Take 2 capsules (600 mg total) by mouth 3 (three) times a day 4 Active rosuvastatin (CRESTOR) 20 mg tablet Take 1 tablet (20 mg total) by mouth daily 4 Active Nucynta ER 100 mg 12 hr tablet Take 1 tablet (100 mg total) by mouth 2 (two) times a day 4 Active TiZANidine (ZANAFLEX) 4 mg capsule Take 1-2 capsules (4-8 mg total) by mouth 3 (three) times a day as needed for muscle spasms Takes 1 capsule (4mg) by mouth twice daily and 2 capsules (8mg) every night at bedtime as needed 4 Active zolpidem (AMBIEN) 10 mg tablet Take 1 tablet (10 mg total) by mouth nightly as needed Active triamcinolone (KENALOG) 0.5 % cream Apply 1 Application topically as needed for rash 4 Active Active Problems Problem Noted Date Diagnosed Date Lumbago 10/14/2013 Degeneration of intervertebral disc of lumbar re gion 10/14/2013 Immunizations Name Administration Dates Next Due Influenza, Trivalent, Preservative Free, Intramu scular 07/13/2013 Social History Tobacco Use Types Packs/Day Years Used Date Smoking Tobacco: Former Personal Safety Answer Date Recorded Have you ever been in or are you currently in a harmful physical or emotional relationship or is someone making you feel afraid or unsafe? Denies 07/28/2024 Sex and Gender Information Value Date Recorded Sex Assigned at Not on file Legal Sex Male 4:43 AM ASSISTANT COUNSEL Gender Identity Not on file Sexual Orientation Not on file Last Filed Vital Signs Vital Sign Reading Time Taken Comments Blood Pressure 164/109 07/28/2024 11:12 AM CDT Pulse 76 07/28/2024 8:15 AM CDT Temperature 36.1 C (96.9 F) 07/28/2024 8:15 AM CDT Respiratory Rate 20 07/28/2024 8:15 AM CDT Oxygen Saturation 98% 07/28/2024 11:12 AM CDT Inhaled Oxygen Concentration - - Weight 81.6 kg (180 lb) 07/28/2024 8:15 AM CDT Height 177.8 cm (5' 10 ) 07/28/2024 8:15 AM CDT Body Mass Index 25.83 07/28/2024 8:15 AM CDT Plan of Treatment Not on file Insurance Advance Directives For more information, please contact: [phone] * Full Code (Latest Code Status on File) Date Activated Date Inactivated Comments 07/28/2024 11:14 AM 07/29/2024 5:00 AM Care Teams Spot Machine Operator Relationship Specialty Start Date End Date No, Physician PCP - General 10/28/18
--- OUTSIDE RECORDS SUMMARY | 2024-11-27 13:00 | XMS_ITS | Clinical Summary ---
Author Organization [facility] System Address [facility] [place] [address] Care Team Providers Care Senior Firmware Engineer Name Role Phone Brianna Taveras REGISTER REPAIRER Unavailable [phone] Marcelo Taylor MD Primary Care Provider [phone] Allergies No known active allergies Medications amLODIPine (NORVASC) 5 MG tablet Take 1 tablet (5 mg total) by mouth daily. 10/14/2024 Active diclofenac EC (VOLTAREN) 75 MG tablet 11/27/2023 Active gabapentin (NEURONTIN) 300 MG capsule 12/01/2023 Active NUCYNTA 100 MG TABLET SR 12 HR 12 hr tablet 11/20/2023 Active rosuvastatin (CRESTOR) 20 MG tablet 03/22/2024 Active tiZANidine HCl 4 MG Cap 01/22/2024 Active zolpidem (AMBIEN) 10 MG tablet 03/26/2024 Active metoprolol tartrate (LOPRESSOR) 100 MG tablet Take one tablet (100mg total) by mouth ONE HOUR PRIOR TO CORONARY CTA 1 tablet 11/04/2024 Active Active Problems Problem Noted Date Diagnosed Date Family history of premature coronary artery dise ase 10/29/2024 Cervical radiculopathy 10/29/2024 Encounters Date Type Department Care Team Description 11/12/2024 Telephone [facility], [address] [address] Kanwal Clark, BUSINESS SYSTEMS MANAGER Results 11/11/2024 9:55 AM WATER TREATMENT PLANT OPERATOR - 11/11/2024 11:59 PM [facility] Hospital Encounter [facility] Ultrasound [address] [facility] [place] [address] Chavo Mccullough MD Discharge Disposition: Home or Self Care (Routine Discharge) 11/11/2024 Travel 11/04/2024 Telephone [facility], [address] [address] Chavo Mccullough MD Medication (Metoprolol tartrate) 11/03/2024 Orders Only [facility], [address] [address] Chavo Mccullough MD 10/29/2024 12:30 PM WATER TREATMENT PLANT OPERATOR Office Visit [facility] [address] Chavo Mccullough MD Hypertension (CONSULT) 10/29/2024 Travel 08/30/2024 Telephone [facility], [address] [address] Tess Sanchez, A Appointment Request (Self ref) from Last 3 Months Family History Medical History Relation Comments Heart Attack Brother Heart Attack Mother Heart Attack Paternal Grandfather Relation Status Comments Brother Mother Paternal Grandfather Social History Tobacco Use Types Packs/Day Years Used Date Smoking Tobacco: Every Day Cigarettes 1 13.1 Started: 10/29/2011 Passive Smoke Exposure: Never Smokeless Tobacco: Never Tobacco Cessation:Ready to Q uit: Not Asked; Counseling Given: Not Answered Alcohol Use Standard Drinks/Week Comments Yes 0 (1 standard drink = 0.6 oz pur e alcohol) Sex and Gender Information Value Date Recorded Sex Assigned at Not on file Legal Sex Male 3:56 PM CDT Gender Identity Not on file Sexual Orientation Not on file Last Filed Vital Signs Vital Sign Reading Time Taken Comments Blood Pressure 140/86 10/29/2024 12:27 PM WATER TREATMENT PLANT OPERATOR Pulse 84 10/29/2024 12:27 PM WATER TREATMENT PLANT OPERATOR Temperature - - Respiratory Rate - - Oxygen Saturation 96% 10/29/2024 12:27 PM WATER TREATMENT PLANT OPERATOR Inhaled Oxygen Concentration - - Weight 85.5 kg (188 lb 8 oz) 10/29/2024 12:27 PM WATER TREATMENT PLANT OPERATOR Height 177.8 cm (5' 10 ) 10/29/2024 12:27 PM WATER TREATMENT PLANT OPERATOR Body Mass Index 27.05 10/29/2024 12:27 PM WATER TREATMENT PLANT OPERATOR Plan of Treatment Upcoming Encounters Date Type Department Care Team (Late st Contact Info) Description 12/21/2024 1:00 PM CDT Appointment [facility] [place] [address] Chavo Mccullough MD [facility] [address] [place] [phone] 04/29/2025 1:30 PM CDT Office Visit [facility] [address] Chavo Mccullough MD 3 [facility] [address] [place] [phone] Health Maintenance Due Date Last Done Comments Colorectal Cancer Screening Colonoscopy (10 Years) 1967 Annual Physical 1970 Pneumococcal Vaccine: Pediatrics (0 to 5 Years) and At-Risk Patients (6 to 64 Years) (1 of 2 - PCV) 1973 Hepatitis C 1985 Hepatitis B Vaccines (2 of 3 - 19+ 3-dose series) 07/03/1990 06/05/1990 Zoster Vaccines (1 of 2) 2017 DTaP, Tdap and Td Vaccines (2 - Td or Tdap) 02/02/2024 02/01/2014, 05/18/1999, 05/14/1999, Additional history exists Meningococcal Vaccine Aged Out 06/24/2002, 997 No longer eligible based on patient's age to complete this topic COVID-19 Vaccine Completed 08/08/2024, , 07/21/2022, Additional history exists Influenza Adult Completed 08/08/2024, 07/13, 07/14/2022, Additional history exists Meningococcal B Vaccine Aged Out No l onger eligible based on patient's age to complete this topic RSV Immunizations Under 20 Months Aged Out No longer eligible based on patient's age to complete this topic Procedures Procedure Name Priority Date/Time Associated Diagnosis Comments USE ECHOCARDIOGRAM Routine 11/11/2024 10 :34 AM WATER TREATMENT PLANT OPERATOR Essential (primary) hypertension Abnormal EKG Family history of premature coronary artery disease ELECTROCARDIOGRAM (NON MIDMARK ACQUIRED) Routine 10/29/2024 12:36 PM WATER TREATMENT PLANT OPERATOR Essential (primary) hypertension from Last 3 Months Results * USE ECHOCARDIOGRAM (11/11/2024 10:34 AM WATER TREATMENT PLANT OPERATOR) Anatomical Region Laterality Modality Cardiac Ultrasound 11/11/2024 10:0 8 AM WATER TREATMENT PLANT OPERATOR Narrative 11/11/2024 4:02 PM WATER TREATMENT PLANT OPERATOR NIKA OSCAR Pat.Name: Shabbir Kashmir pham Pat.ID: [id number] .Date: 11/11/2024 Refer.MD: Celestina, [facility] Radiology Exam Time: 10:08:00 AM Study Type:OUTREACH Height: 70 in Weight: 180 lb BSA: 2 m2 Age: 8 1965,59Y Sex: M Sonogrphr: Zach Evangelista. Stat.:Outpatient CPT - 4: 53286 Reason for Study:Abnormal ECG, HTN Procedures: Study performed at [place], [place] and interpreted by [facility]. 2D, M-mode, Doppler, Color Flow ++++++++++++++++++++++++++++++++++++ SUMMARY: ++++++++++++++++++++++++++++++++++++ The left ventricular size is normal. Estimated left ventricular ejection fraction is 55-60%. Left ventricular diastolic function is abnormal (grade 1 - impaired relaxation). Wall motion appears normal in all segments. No significant valvular abnormality. Unable to reliably quantitate pulmonary systolic pressure. ++++++++++++++++++++++++++++++++++++ FINDINGS: ++++++++++++++++++++++++++++++++++++ LV: The left ventricular size is normal. Estimated left ventricular ejection fraction is 55-60%. No concentric left ventricular hypertrophy. The average E/e' is >14. Left ventricular diastolic function is abnormal (grade 1 - impaired relaxation). WM: Wall motion appears normal in all segments. RV: The right ventricle size is normal. The right ventricular function is normal. LA: Left atrial size is normal. RA: The right atrial size is normal. TERESITA: No evidence of pericardial effusion. AO: The sinus of Valsalva measures 3.6cm. PA: Estimated right atrial pressure of 3 mmHg. Unable to reliably quantitate pulmonary systolic pressure. SVn: Inferior vena cava is normal. Inferior vena cava shows >50% collapse with respiration consistent with normal right atrial pressure. AV: The aortic valve is trileaflet. There is no aortic stenosis. There is no evidence of aortic regurgitation. MV: The mitral valve is structurally normal. There is trace mitral regurgitation. PV: Trace pulmonic regurgitation. Pulmonic valve not well visualized. TV: The tricuspid valve appears structurally normal. There is trace tricuspid regurgitation. <Electronic Signature> 11/11/2024 04:02 PM Chavo Mccullough M.D. Procedure Note Chavo Mccullough MD - 11/11/2024 NIKA CELESTINA Pat.Name: Kashmir Shea Pat.ID: [id number] .Date: 11/11/2024 Refer.MD: Celestina, [facility] Radiology Exam Time: 10:08:00 AM Study Type:[facility] Height: 70 in Weight: 180 lb BSA: 2 m2 Age: 8 1965,59Y Sex: M Sonogrphr: Zach Pat. Stat.:Outpatient CPT - 4: 67440 Reason for Study:Abnormal ECG, HTN Procedures: Study performed at [place], [place] and interpreted by [facility]. 2D, M-mode, Doppler, Color Flow ++++++++++++++++++++++++++++++++++++ SUMMARY: ++++++++++++++++++++++++++++++++++++ The left ventricular size is normal. Estimated left ventricular ejection fraction is 55-60%. Left ventricular diastolic function is abnormal (grade 1 - impaired relaxation). Wall motion appears normal in all segments. No significant valvular abnormality. Unable to reliably quantitate pulmonary systolic pressure. ++++++++++++++++++++++++++++++++++++ FINDINGS: ++++++++++++++++++++++++++++++++++++ LV: The left ventricular size is normal. Estimated left ventricular ejection fraction is 55-60%. No concentric left ventricular hypertrophy. The average E/e' is >14. Left ventricular diastolic function is abnormal (grade 1 - impaired relaxation). WM: Wall motion appears normal in all segments. RV: The right ventricle size is normal. The right ventricular function is normal. LA: Left atrial size is normal. RA: The right atrial size is normal. TERESITA: No evidence of pericardial effusion. AO: The sinus of Valsalva measures 3.6cm. PA: Estimated right atrial pressure of 3 mmHg. Unable to reliably quantitate pulmonary systolic pressure. SVn: Inferior vena cava is normal. Inferior vena cava shows >50% collapse with respiration consistent with normal right atrial pressure. AV: The aortic valve is trileaflet. There is no aortic stenosis. There is no evidence of aortic regurgitation. MV: The mitral valve is structurally normal. There is trace mitral regurgitation. PV: Trace pulmonic regurgitation. Pulmonic valve not well visualized. TV: The tricuspid valve appears structurally normal. There is trace tricuspid regurgitation. <Electronic Signature> 11/11/2024 04:02 PM Chavo Mccullough M.D. Chavo Mccullough MD ECHO Final Result * ELECTROCARDIOGRAM (10/29/2024 12:36 PM WATER TREATMENT PLANT OPERATOR) 10/29/2024 12:3 6 PM WATER TREATMENT PLANT OPERATOR [facility] - 10/31/2024 7:57 AM WATER TREATMENT PLANT OPERATOR [address] [address] Test Date: 2024-10-29 Pat Name: KASHMIR SHEA Department: 177 Room: Gender: Male Physical Therapy Technician: : 1965 Requested By: CHAVO MCCULLOUGH Order Number: [id number] Reading MD: Chavo Mccullough Measurements Intervals [place] Rate: 77 P: 53 GA: 176 QRS: 8 QRSD: 107 T: 41 QT: 389 QTc: 441 Interpretive Statements SINUS RHYTHM INDETERMINATE AXIS PATTERN CONSISTENT WITH PULMONARY DISEASE INCOMPLETE RIGHT BUNDLE BRANCH BLOCK PROBABLE INFERIOR MYOCARDIAL INFARCTION, PROBABLY OLD R TREATMENT PLANT OPERATOR Procedure Note Chavo Mccullough MD - 10/31/[address] [address] Test Date: 2024-10-29 Pat Name: KASHMIR SHEA Department: 177 Room: Gender: Male Physical Therapy Technician: : 1965 Requested By: CHAVO MCCULLOUGH Order Number: [id number] Reading MD: Chavo Mccullough Measurements Intervals [place] Rate: 77 P: 53 GA: 176 QRS: 8 QRSD: 107 T: 41 QT: 389 QTc: 441 Interpretive Statements SINUS RHYTHM INDETERMINATE AXIS PATTERN CONSISTENT WITH PULMONARY DISEASE INCOMPLETE RIGHT BUNDLE BRANCH BLOCK PROBABLE INFERIOR MYOCARDIAL INFARCTION, PROBABLY OLD R TREATMENT PLANT OPERATOR us Chavo Mccullough MD PROCEDURES-ORDERABLE NO CHARG E Final Result [facility] from Last 3 Months Insurance Care Teams Senior Firmware Engineer Relationship Specialty Start Date End Date Marcelo Taylor MD [address] [place], [place] [id number] PCP - General FAMILY PRACTICE 09/02/24 Brianna Taveras NP [address] [place] [address] Nurse Practitioner NURSE PRACTITIONER ADULT HEALTH 09/02/24
--- OUTSIDE RECORDS SUMMARY | 2024-11-27 13:00 | XMS_ITS | Encounter Summary ---
Author Organization [facility] Address [address] [facility] [place] [address] Care Team Providers Care Public Relations Sales Marketing Name Role Phone Marcelo Talyor MD Primary Care Provider [phone] Encounter Details Date Type Department Care Team (Late st Contact Info) Description 03/17/2020 Lab Requisition [facility] [address] [place] [address] Marcelo Taylor MD [address] [place] [address] Social History Tobacco Use Types Packs/Day Years [...] Priority Date/Time Associated Diagnosis Comments DERMATOPATHOLOGY Routine 03/13/2020 12:0 0 AM CDT documented in this encounter Results * DERMATOPATHOLOGY (03/13/2020 12:00 AM CDT) Case Report Dermatopathology Report Case: [id number] Authorizing Provider: Marcelo Taylor MD Collected: 03/13/2020 12:00 AM Ordering Location: [facility] Received: 03/17/2020 02:01 PM Pathologist: Maribell Mcgowan MD Specimen: Skin, left forehead 0 3:26 PM CDT DERMATOPATHOLOGY LABORATORY Final Diagnosis Specimen A. SKIN, left forehead: BENIGN VERRUCOUS KERATOSIS, INFLAMED (L82.1) 0 3:26 PM CDT DERMATOPATHOLOGY LABORATORY Clinical History Changing lesion. Check margins. 0 3:26 PM CDT DERMATOPATHOLOGY LABORATORY Gross Description Specimen A: Received is one formalin filled container labeled with the patient's name and designated left forehead. The specimen consists of a shave biopsy measuring [id number]. The margin is inked green. Jar 0. 0 3:26 PM CDT DERMATOPATHOLOGY LABORATORY Microscopic Description Specimen A. SKIN, left forehead: Sections show hyperkeratosis, papillomatosis, hypergranulosis, and acanthosis. Inflammatory cells are present within the dermis. These histological findings can be seen in a verruca vulgaris or a seborrheic keratosis. This lesion is present at the margin of the specimen. 0 3:26 PM CDT DERMATOPATHOLOGY LABORATORY Disclaimer An external and internal positive and negative controls are appropriate for the histochemical, immunohistochemical and immunofluorescence stain(s) in this case (if any), except where stated explicitly. The performance characteristics of the stain(s) cited in this report were developed and its performance characteristic determined by the Dermatopathology Laboratory at [facility], directed by Dr. Yuri Locke. These tests need not be, and therefore are not, approved by the [place] Food and Drug Administration. The tests are used for clinical purposes. Billing Codes Specimen Charges Stain Charges 33355 1 0 3:26 PM CDT DERMATOPATHOLOGY LABORATORY Embedded Images 0 3:26 PM CDT DERMATOPATHOLOGY LABORATORY Pathology/Cytolog y TISSUE SPECIMEN FROM SKIN / Unknown 03/13/2020 03/17/2020 2:01 PM CDT Marcelo Taylor MD LAB - PATHOLOGY/CYTO LOGY ORDERABLES DERMATOPATHOLOGY LABORATORY [facility] - Department of Dermatology [place]/[address] [phone] documented in this encounter Visit Diagnoses Not on filedocumented in this encounter Care Teams Public Relations Sales Marketing Relationship Specialty Start Date End Date Marcelo Taylor MD [address] [place] [address] PCP - General 01/21/11 documented as of this encounter
--- OUTSIDE RECORDS SUMMARY | 2024-11-27 13:00 | XMS_ITS | Clinical Summary ---
Author Organization [facility] Building [facility] Address [address] [place] [address] Care Team Providers Care Platform Supervisor Name Role Phone No, Physician Primary Care Provider [phone] Allergies No known active allergies Medications diclofenac [...] Influenza, Trivalent, Preservative Free, Intramu scular 07/13/2013 Surgical History Surgery Date Site/Laterality Comments EAR SURGERY Ear Surgery - (Added by TW Conv) WRIST SURGERY Wrist Surgery - (Added by TW Conv) DISCECTOMY Spinal Diskectomy - (Added by TW Conv) CERVICAL DISC ARTHROPLASTY Total Disc Arthroplasty Cervical - (Added by TW Conv) Family History Medical History Relation Name Comments Cancer Other Cancer - (Added by TW Conv) Diabetes Other Diabetes Mellit us - (Added by TW Conv) Heart disease Other Heart Disease - (Added by TW Conv) Hypertension Other Hypertension - (Added by TW Conv) Stroke Other Stroke Syndrome - (Added by TW Conv) Relation Name Status Comments Other Social History Tobacco Use Types Packs/Day Years Used Date Smoking Tobacco: Former Personal Safety Answer Date Recorded Have you ever been in or are you currently in a harmful physical or emotional relationship or is someone making you feel afraid or unsafe? 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 Gender Identity Not on file Sexual Orientation Not on file Obstetrics History Last Filed Vital Signs Vital Sign Reading [...] 07/28/2024 8:15 AM CDT Plan of Treatment Health Maintenance Due Date Last Done Comments Colon Cancer Screening-Colonoscopy 1965 Depression Screening 1965 Hepatitis C Screening 1965 Prostate Cancer Screening-PSA 1965 Regular Well Visit/Exam 18-64 1985 Zoster Vaccine (1 of 2) 2017 DTaP/Tdap/Td Vaccine (2 - Td or Tdap) 02/02/2024 02/01/2014, 05/18/1999, 05/14/1999, Additional history exists Covid-19 Vaccine (6 - 2024-25 season) 2024 07/27/2023, 07/21/2022, 08/25/2021, Additional history exists Influenza Vaccine (#1) 2024 , 07/14/2022, 08/25/2021, Additional history exists Pneumococcal vaccine <65 Aged Out No longer eligible based on patient's age to complete this topic Insurance Advance Directives For more information, please contact: [phone] * Full Code (Latest Code Status on File) Date Activated Date Inactivated Comments 07/28/2024 11:14 AM 07/29/2024 5:00 AM Care Teams Platform Supervisor Relationship Specialty Start Date End Date No, Physician PCP - General 10/28/18
[2024-11-27 13:02] VITALS: BP 173/99; PULSE 80; RESP 18; TEMP 36.1; O2SAT 99
--- NOTE | 2024-11-27 13:19 | ED_ITS ---
HPI - Eye Problem General Chief complaint: Eye Problems Stated complaint: Bilateral Bledsoe Eye Time Seen by Provider: 11/27/24 12:55 Source: patient Mode of arrival: ambulatory Limitations: no limitations History of Present Illness HPI Narrative: Patient is a 59-year-old male who presents with 4-5 days of left eye crusting, intermittent burning/itching pain, cloudy vision, irritated, red in watery stringy discharge. Reports intermittent blurry vision due to film on eye. Symptoms are now moving to right eye. Worse last seen contacts has only been wearing glasses recently. Related Data Home Medications ?Medication ?Instructions ?Recorded ?Confirmed ?Last Taken ?Type hydrochlorothiazide 12.5 mg tablet 12.5 mg PO DAILY 03/26/24 11/05/24 Unknown History Allergies Allergy/AdvReac Type Severity Reaction Status Date / Time No Known Allergies Allergy Unknown Unknown Verified 11/27/24 13:13 Review of Systems Review of Systems: All systems reviewed & are unremarkable except as noted in HPI and below Constitutional: Constitutional: Denies body ache(s), Denies fever(s), Denies headache(s), Denies malaise and Denies weakness Eyes: Eyes: Reports blurry vision, Reports eye discharge, Reports irritation, Reports itchy eyes, Denies loss of vision and Reports eye pain ENT: Denies otalgia, Denies headache(s), Denies nasal discharge, Denies sinus pain and Denies sore throat Cardiovascular: Cardiovascular: Denies chest pain, Denies irregular heart rhythm and Denies dyspnea Respiratory: Respiratory: Denies dyspnea Gastrointestinal: Gastrointestinal: Denies abdominal pain, Denies diarrhea, Denies nausea and Denies vomiting Musculoskeletal: Musculoskeletal: Denies back pain, Denies myalgias and Denies arthralgias Integumentary/Breasts: Skin/Breast: Denies pruritus and Denies rash Neurologic: Denies headache(s), Denies loss of vision and Denies weakness Psychiatric: Psychiatric: Reports no additional psychiatric complaints Allergic/Immunologic: Allergic/Immunologic: Reports itchy eyes PMFSH Past Medical History Medical History BMI 26.0-26.9,adult Tobacco abuse Chest pain CORINA (obstructive sleep apnea) Family History Family History Mother Hypertension Family history of elevated blood lipids Family history of diabetes mellitus in first degree relative Family history of heart disease in male family member before age 55 Sibling Family history of malignant neoplasm Esophageal cancer Father Sibling Obesity Acute myocardial infarction Other Diabetes mellitus Social History Social History Smoking packs per day: 1 Smoking cigarettes per day: 20.0 Years smoked: 20 Smoking pack-years: 20.00 Smoking status: Current every day smoker Tobacco type: cigarettes Second hand tobacco smoke exposure: No Alcohol intake: current Drinks per week: 4 Substance use: never Substance use type: does not use Living arrangements: with family Occupation/Education: occupation 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 There is no relevant family history pertinent to the presenting complaint. Exam Const: General: cooperative, healthy appearing, comfortable, no acute distress and well nourished Nutritional Appearance: well nourished Orientation/consciousness: patient oriented x3 Limitations: no limitations HENMT: Head: normal to inspection, normocephalic and atraumatic Ears: external ears normal Face/Nose/Sinus: Normal external nose present, normal facial exam and face symmetric Face and sinus: normal facial exam and face symmetric Mouth: Yes lip normal Eyes: General: appearance normal, both eyes and all related structures Visual Pereyra: normal visual pereyra by confrontation Alignment and Position: alignment normal and position normal Periorbital: periorbital findings normal Eyelids: eyelids normal Conjunctivae: conjunctival abnormality bilateral conjunctival injection diffuse and discharge mucoid Sclera: sclerae normal Pupils: Equal, round and reactive pupils present EOM: EOMs intact bilaterally Direct Ophthalmoscopy: no photophobia Other: No hyphema, no foreign body under the lids. Neck: Neck: normal visual inspection, full ROM, no lymphadenopathy and no meningeal signs Chest: Chest palpation & inspection: normal inspection of the chest Resp: Effort & Inspection: normal respiratory effort and able to speak in complete sentences Auscultation: clear to auscultation bilaterally Cardio: Rate: regular rate Rhythm: regular rhythm Heart sounds: S1 normal heart sound present and S2 normal heart sound present GI: Inspection: normal to inspection Skin: General skin exam: normal color and no rashes or lesions noted Neuro: General: patient oriented x3, moves all extremities and no meningeal signs Cranial nerves: Yes Equal, round and reactive pupils present Speech: normal speech Gait exam (Neuro): Normal gait present Extrem: General: normal to inspection, full ROM and no edema Psych: Appearance: grossly normal and well kempt Mental Status: mental status grossly normal Speech and movement: Normal speech and movement present Affect: normal affect Attitude: cooperative Thought process: Normal thought process present Course Course Emergency Course: Patient is aware of diagnosis, understands and agrees to treatment plan. Anticipatory guidance given. Patient agrees to follow-up as directed and is aware of reasons to seek care at the emergency department. Portions of this record may have been created with voice recognition software Level of Care: Express Care Visit Vital Signs Vital signs: Vital Signs Temperature 36.1 C L 11/27/24 13:02 Pulse Rate 80 11/27/24 13:02 Respiratory Rate 18 11/27/24 13:02 Blood Pressure 173/99 H 11/27/24 13:02 Pulse Oximetry 99 11/27/24 13:02 Oxygen Delivery Room Air 11/27/24 13:02 Temperature 36.1 C L 11/27/24 13:02 Pulse Rate 80 11/27/24 13:02 Respiratory Rate 18 11/27/24 13:02 Blood Pressure 173/99 H 11/27/24 13:02 Pulse Oximetry 99 11/27/24 13:02 Oxygen Delivery Room Air 11/27/24 13:02 Reviewed MDM - Eye Problem MDM Narrative Medical decision making narrative: Pt well hydrated appearing, in no respiratory distress, hemodynamically stable. Recommend supportive care. The patient is stable at time of discharge the clinical impression was discussed and the patient was given the opportunity to ask questions, which were addressed as completely as possible given the informa tion available at present. Anticipatory guidance and return to care precautions were discussed and the importance of primary care follow-up was stressed and encouraged. The patient voiced understanding of the plan, indications to return, and the need for follow-up. Exam findings show no acute concerns or changes Patient is appropriate for outpatient treatment and follow-up. Differential Diagnosis Differential diagnosis: Likely corneal abrasion, conjunctivitis, periorbital cellulitis and corneal ulcer Medical Records Attestation: I reviewed the patient's medical records. Discharge Plan Discharge Clinical Impression: Conjunctivitis Qualifiers: Conjunctivitis type: acute Acute conjunctivitis type: bacterial Laterality: bilateral Qualified Code(s): H10.33 - Unspecified acute conjunctivitis, bilateral Patient Disposition: Home, Self-Care Condition: Stable Instructions: Conjunctivitis (ED) Additional Instructions: Do not touch or rub your eye. Use a warm or cool washcloth on your eye for comfort Use eyedrops as directed Practice good handwashing and hygiene to prevent spread of infection You may take Tylenol or ibuprofen for pain Follow-up with PCP or entry level accounting clerk if condition is not improving in 2-3days. Go to the emergency room if you have pain behind your eye, pressure behind her eye, difficulty seeing, or other severe symptoms Your blood pressure was elevated above 120/80 today at Urgent Care. This puts you above the threshold for follow up visit with a primary care provider. High blood pressure does not usually cause any symptoms, however it may lead to kidney failure, stroke, heart disease just to name a few if untreated . Many people are anxious when seeing a provider or nurse. As a result, you are not diagnosed with hypertension at this time unless your blood pressure is persistently high at two office visits at least one week apart. Some things that can help lower blood pressure are lifestyle modifications, such as light exercise, decreased salt in diet, and weight loss. It is important to follow up with a PCP about this within 1 week. Patient Language: [place] Prescriptions: New ofloxacin 0.3 % drops See Rx Instructions .ROUTE .COMPLEX Qty: 15 0RF Rx Instructions: put 1-2 drps into each eye every 2-4 h x 2 days, then 1-2 drps 4 times/day days 3-7 No Action hydrochlorothiazide 12.5 mg tablet 12.5 mg PO DAILY benzonatate 200 mg capsule 200 mg PO TID PRN (Reason: cough) Qty: 30 0RF rosuvastatin 20 mg tablet 20 mg PO DAILY Qty: 90 1RF amlodipine 5 mg tablet 5 mg PO DAILY Qty: 90 1RF triamcinolone acetonide 0.5 % cream 1 applic topical TID Qty: 15 0RF zolpidem [Ambien] 10 mg tablet 10 mg PO HS PRN (Reason: Sleep) Qty: 90 0RF Rx Instructions: 3mo supply gabapentin 300 mg capsule 600 mg PO TID Qty: 180 3RF diclofenac sodium 75 mg tablet,delayed release (DR/EC) See Rx Instructions .ROUTE .COMPLEX Qty: 60 1RF Dose Instruction: TAKE 1 TABLET BY MOUTH TWICE DAILY NEEDED FOR PAIN Rx Instructions: TAKE 1 TABLET BY MOUTH TWICE DAILY NEEDED FOR PAIN tizanidine 4 mg capsule See Rx Instructions .ROUTE .COMPLEX Qty: 120 1RF Dose Instruction: TAKE ONE CAPSULE BY MOUTH TWICE DAILY AND 2 CAPSULES EVERY NIGHT AT BEDTIME NEEDED Rx Instructions: TAKE ONE CAPSULE BY MOUTH TWICE DAILY AND 2 CAPSULES EVERY NIGHT AT BEDTIME NEEDED Nucynta ER 100 mg tablet extended release 12 hr 100 mg PO BID Qty: 60 0RF Follow-up/Referrals: Marcelo Taylor MD [Primary Care Provider] - Stand Alone Forms: Work/School Release IP Time of Disposition: 13:29
== END 2024-11-27 13:33 | disposition home or self-care (01) ==
PROVIDERS: Emergency Provider Nurse Practitioner Family; PCP Family Medicine
DX: H10.33 Unspecified acute conjunctivitis, bilateral (principal); F17.210 Nicotine dependence, cigarettes, uncomplicated
CPT/HCPCS: 99213; G0463